=== PATIENT | male | born 1955 | race Caucasian/White ===

== ENCOUNTER → 2018-02-05 15:02 | Outpatient (CLI) | payer MEDICAID, SELFPAY | PROVIDERS: Visit Provider Podiatrist | DX: L98.499 Non-pressure chronic ulcer of skin of other sites with unspecified severity (principal); M14.679 Charcot's joint, unspecified ankle and foot | CPT/HCPCS: 73630 ==

== ENCOUNTER 2018-02-13 14:00 | Outpatient (RCR) | payer MEDICAID, SELFPAY ==
[2018-02-04 10:30] VITALS: BP 136/57; PULSE 60; RESP 18; TEMP 36; BMI 39.5
[2018-02-04 14:44] LABS: Absolute Lymphocyte Count 2.42 X10^3/ul (0.83-4.51); Absolute Neutrophil Count 4.1 X10^3/uL (2.0-7.7); Basophil# 0.03 X10^3/uL; Basophil% 0.4 % (0-1); Eosinophil# 0.31 X10^3/uL; Hematocrit 34.9 % (40-54); Hemoglobin 10.8 g/dl (13.0-16.5); Lymphocyte # 2.42 X10^3/ul (4.0); Lymphocyte % 31.3 % (19-41); Mean Corp Hgb Conc 30.9 g/gl (32-36); Mean Corpuscular Volume 80.8 fL (80-94); Monocyte# 0.84 X10^3/uL; Monocyte% 10.9 % (0-10); Neutrophil # 4.11 X10^3/uL (2.7-7.7); Platelet Count 334 K/mm3 (150-450); Red Blood Count 4.32 M/mm3 (4.6-6.2); White Blood Count 7.7 K/mm3 (4.4-11.0)
[2018-02-04 14:45] LABS: POSITIVE COUNT NO; POSITIVE DIFFERENTIAL NO; POSITIVE MORPHOLOGY NO
[2018-02-04 14:58] LABS: Vitamin D,25 Hydroxy 8.8 ng/mL (29.95-100.01)
[2018-02-04 15:01] LABS: ALB/GLOB Ratio 0.4 RATIO (0.9-2.4); AST(SGOT) 14 U/L (15-37); Alanine Aminotransfer ALT/SGPT 15 U/L (16-61); Albumin, Serum 2.3 g/dL (3.2-5.0); Alkaline Phosphatase 107 U/L (45-117); Anion Gap 9 (5-15); BUN 57 mg/dL (7-18); BUN/Creat Ratio 12.2 RATIO (10-20); Calcium,Total 8.9 mg/dL (8.5-10.1); Chloride 106 mmol/L (98-107); Creatinine, Serum 4.66 mg/dL (0.70-1.30); EST Glomerular Filtration Rate 14 mL/min (>60); Est Glom Filt Rate - Afr Amer 17 mL/min (>60); Estimated Creatinine Clearance 18.81 ml/min; Globulin 5.3 g/dL (2.2-4.2); Glucose 43 mg/dL (74-106); Potassium 5.7 mmol/L (3.5-5.1); Protein, Total 7.6 g/dL (6.4-8.2); Sodium Level 139 mmol/L (136-145)
--- NOTE | 2018-02-04 16:25 | PCM.WC.HP ---
(1) Ulcer of right foot with fat layer exposed Status: Chronic Current Visit: Yes Code(s): L97.512 - Non-pressure chronic ulcer of other part of right foot with fat layer exposed (2) Charcot foot due to diabetes mellitus Status: Chronic Current Visit: Yes Code(s): E11.610 - Type 2 diabetes mellitus with diabetic neuropathic arthropathy (3) Type 2 diabetes mellitus with diabetic polyneuropathy Status: Chronic Current Visit: Yes Code(s): E11.42 - Type 2 diabetes mellitus with diabetic polyneuropathy (4) Venous insufficiency Status: Chronic Current Visit: Yes Code(s): I87.2 - Venous insufficiency (chronic) (peripheral) (5) Leg edema Status: Chronic Current Visit: Yes Code(s): R60.0 - Localized edema (6) Malnutrition Status: Chronic Current Visit: Yes Code(s): E46 - Unspecified protein-calorie malnutrition (7) Delayed wound healing Status: Chronic Current Visit: Yes Code(s): T14.8XXD - Other injury of unspecified body region, subsequent encounter History of Present Illness Date of Service: 02/04/18 Chief Complaint: Right foot ulcer History of Wound: This 62-year-old male with diabetes and other comorbidities was seen in the wound healing center today for right foot ulcer that has an onset of April 2017. He is previously seen at the [facility] wound healing center with Dr. Aguillon and he was also previously seen by Dr. Li for surgical consultation in the past. He denies claudication. He has rest paresthesias consistent with neuropathy. He denies odor or redness. He denies fever, chill, nausea, vomiting, diarrhea, loss of appetite. She did have a previous infection and was treated with doxycycline and this has completely resolved at this time. He does admit he walks on this wound at home and is staying with a family member to reduce his walking. He has a knee roller in his car and elected not to use it today. He also has a [place] walker and is not using it today. He has been putting puracol and Dakin's on the wound daily. He was trying to get into a dietitian and his insurance does not cover it; he is amendable to see nutrition services here at [facility]. It is noted that his primary care physician is Dr. 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 He admits he has ongoing sugar elevation. Past Medical History Past Medical History: Chronic Problems Ulcer of right foot with fat layer exposed (Chronic) Charcot foot due to diabetes mellitus (Chronic) Type 2 diabetes mellitus with diabetic polyneuropathy (Chronic) Venous insufficiency (Chronic) Leg edema (Chronic) Malnutrition (Chronic) Delayed wound healing (Chronic) Past Medical History: Past medical history: Diabetes with neuropathy, hypertension, anemia, kidney disease stage I. Surgical history: Toe amputations, ankle debridement, shoulder surgery. Family history: Diabetes and cancer. Social history: He is a former smoker and denies current smoking, denies alcohol or drug use. Allergies: Lyrica amoxicillin baclofen and sulfa. Medications; reviewed Surgical History: - Lives: With Family Smoking Status: Never smoker Tobacco Use: Non-smoker Alcohol: None Drugs: None Review of Systems Constitutional: Denies: Chills, Fever, Night Sweats, Weakness HEENT: Denies: Sore Throat Cardiovascular: Reports: Edema - Legs. Denies: Chest Pain, Claudication Respiratory: Denies: Shortness of Breath Gastrointestinal: Denies: Nausea, Vomiting Musculoskeletal: Denies: Foot Pain, Joint Tenderness, Leg Pain Skin: Reports: Rash, Wounds Neurological: Reports: Numbness, Tingling Hematologic/ Lymphatic: Reports: Anemia - Physical Exam Vital Signs Temp Pulse Resp BP 96.8 F L 60 18 136/57 H 02/04/18 10:30 02/04/18 10:30 02/04/18 10:30 02/04/18 10:30 General: Alert, Oriented x3, Cooperative HEENT: Atraumatic Extremities: No cyanosis, Capillary Refill Less than 3 Seconds, No Calf Tenderness - Negative Laci and Yoder sign bilateral, Diminished Peripheral Pulses - Palpable dorsalis pedis pulse bilateral nonpalpable PT pulses bilateral, Edema - Moderate bilateral lower extremities, - - Rocker-bottom prominent right foot noted. There is no laxity, caloric, crepitation with passive manipulation of the right midfoot Skin: Ulcer/ Wound - No purulence, erythema, streaking, odor, infection, or exposed deep capsule joint or bone. The wound bed is 100% granular with peripheral hyperkeratotic tissue. The peripheral skin is atrophic and hairless. There is no maceration Wound Measurements and Assessment WC - Nurse 1 - General Ulcer Measurement Start: 02/04/18 10:07 Freq: Status: Active Protocol: Activity Type Activity Date Activity User E-Sign Co-Sign Detail Recorded Client Recorded Date Recorded By Document 02/04/18 10:30 TN [id number] 02/04/18 11:13 TN 02/04/18 10:30 Wound Center Nurse 1 [Ulcer Assessment] #1 R midfoot plantar -Combined with other wound No -Current Size (cm) - Length 2.3 -Current Size (cm) - Width 3.6 -Current Size (cm) - Depth 0.6 -Total Square Cm 8.28 -Date of Last Picture (Recall this 02/04/18 field) -Photo Taken Yes -Epithelialization None Present -Tunneling No -Undermining/Tunneling No -Circular Undermining No -Classification - Thickness Full Thickness without Exposed Support Structure -Exudate Amt Large (67-100%) -Exudate Type Serosanguineous -Wound Margin Distinct, Outline Attached -Granulation Amt Large (67-100%) -Granulation Quality [place] -Slough/Fibrin Yes -Necrotic Tissue Type Adherent Slough -Structure Exposed None/Limited to Skin Breakdown -Texture (Anna-wound Skin Appearance) Assessed Callus -Moisture (Anna-wound Skin Appearance Assessed ) Dry/Scaly -Color (Anna-wound Skin Appearance) No Abnormality Assessed -Temperature (Anna-wound Skin No Abnormality Appearance) (Pt Warm) -Tenderness on Palpation (Anna-wound No Skin Appearance) -Ulcer Cleansing Rinsed/ Irrigated with Saline -Foul Odor after Cleansing No -Anesthetic Used 4% Lidocaine Solution [Edema Assessment] -Lower Limb Edema Present Yes -Right Calf (cm) 48.2 -Right Ankle (cm) 32.5 -Left Calf (cm) 48.3 -Left Ankle (cm) 26 WC - Nurse 2 - General Ulcer CM Notes Start: 02/04/18 10:07 Freq: Status: Active Protocol: Activity Type Activity Date Activity User E-Sign Co-Sign Detail Recorded Client Recorded Date Recorded By Document 02/04/18 11:38 TM [id number] 02/04/18 11:49 TM 02/04/18 11:38 Wound Center Nurse 2 [Procedure/Treatment] #1 R midfoot plantar -Time 11:39 -Correct Patient Yes -Correct Side, Site, Position Yes -Correct Procedure Yes -Procedure Performed Yes -Type of Procedure Debridement -Clinical Debridement Subcutaneous -Post Debridement Size (cm) - Length 2.4 -Post Debridement Size (cm) - Width 3.7 -Post Debridement Size (cm) - Depth 0.6 -Total Square Cm 8.88 -Wound/Ulcer Outcome Not Healed -Ulcer Cleansing Rinsed/ Irrigated with Saline -Foul Odor after Cleansing No -Bioengineered Tissue No -Topical Lidocaine (%) 4 -Bleeding Controlled with Pressure -Treatment Response Procedure Tolerated Well [See Physician Procedure note for Specifics] Pain Scale: 0-10 Numeric [Pain] -Is Patient Pain Free? Yes Musculoskeletal: No Tenderness to Palpation of Joints or Extremities, Muscle Wasting, - - 5 out of 5 ankle muscle strength in all directions right. Active range of motion noted to all toes bilateral. Compartments of bilateral lower extremities remain soft. Pes planus foot structure noted. Decreased ankle joint dorsiflexion noted right lower extremity with knee extended. Cane use noted Neurological: - - Lack of epicritic sensation to light touch and Mayo Cesilia monofilament bilateral Psych/Mental Status: Normal Affect, Appropriate Debridement Note Post-Debridement Measurements/Treatment WC - Nurse 2 - General Ulcer CM Notes Start: 02/04/18 10:07 Freq: Status: Active Protocol: Activity Type Activity Date Activity User E-Sign Co-Sign Detail Recorded Client Recorded Date Recorded By Document 02/04/18 11:38 [id number] 02/04/18 11:49 02/04/18 11:38 Wound Center Nurse 2 #1 R midfoot plantar -Time 11:39 -Correct Patient Yes -Correct Side, Site, Position Yes -Correct Procedure Yes -Procedure Performed Yes -Type of Procedure Debridement -Clinical Debridement Subcutaneous -Post Debridement Size (cm) - Length 2.4 -Post Debridement Size (cm) - Width 3.7 -Post Debridement Size (cm) - Depth 0.6 -Total Square Cm 8.88 -Wound/Ulcer Outcome Not Healed -Ulcer Cleansing Rinsed/ Irrigated with Saline -Foul Odor after Cleansing No -Bioengineered Tissue No -Topical Lidocaine (%) 4 -Bleeding Controlled with Pressure -Treatment Response Procedure Tolerated Well Pain Scale: 0-10 Numeric Is Patient Pain Free? Yes Wound debrided: plantar midfoot Laterality: Right - g Wound Grade/Stage: grade 1 Type of Debridement: Excisional debridement Anesthesia Used: 4% Lidocaine Solution Depth: in the subcutaneous layer Percentage of wound debrided: 100 Instrument Used: #15 blade Tissue Removed: fibrous, devitalized subcutaneous, biofilm, slough, peripheral callous Severity: Fat Layer Exposed Amount of bleeding with debridement: Mild Bleeding Controlled with: Pressure Patient tolerated procedure well Assessment/Plan Active Problems Ulcer of right foot with fat layer exposed (Chronic) Charcot foot due to diabetes mellitus (Chronic) Type 2 diabetes mellitus with diabetic polyneuropathy (Chronic) Venous insufficiency (Chronic) Leg edema (Chronic) Malnutrition (Chronic) Delayed wound healing (Chronic) Assessment: Plantar james grade 1 foot ulcer, no infection. Charcot foot, stable and nonacute. Diabetes with neuropathy. Delayed healing. Malnutrition suspected. Equinus. Compliance compromise Plan: I reviewed and discussed his case today. Ulcer debridement was performed subcutaneously as noted in the clinical panel. To change dressing daily with collagen dressing that he has at home. I also recommend application of advanced wound care product to the chronicity of this wound has been open since last April. The benefits, indications, planned procedure, and anticipated healing and management steps were discussed. She understands this is derived from amniotic cord cells. Prior authorization will be obtained prior to application. To offload wound by returning to the knee roller. We discussed the recommendation of a total contact cast and this will be ordered and we plan to apply this next week. He has tried this in the past and reports he had some leg swelling and swelling with this. He is amenable to try this again. He was reassured no signs of infection are noted and he will continue to monitor for this. His last cultures from when his wound was infected approximately 1 month ago demonstrated Enterobacter cloaca. his labs are reviewed from last July 2017 including CBC and CMP. It is noted his BUN is 46 and his hemoglobin A1c was 11.3. I recommend we update his foot x-rays in order was provided I also recommend updating these labs in order was provided. Also recommend nutritional supplementation optimize healing. I provided prescription for Cole and he was advised on proper use. A referral to nutrition services at [facility] was also recommended and a referral was provided today. I recommend a noninvasive vascular study and these results will be obtained; he reports he had this done in [place]. I also recommend venous study to see if he has insufficiency. Additional record request will be pursued. To elevate limbs at rest and to avoid idle standing or sitting. To return the wound healing center 1 week or call sooner if he has any questions or concerns. I answered all his questions today.
[2018-02-11 11:27] VITALS: BP 135/66; PULSE 73; RESP 16; TEMP 35.5; BMI 39.5
--- NOTE | 2018-02-11 13:09 | PCM.WC.PN ---
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 use: unspecified fpc insulin use status Qualified Code(s): E11.42 - Type 2 diabetes mellitus with diabetic polyneuropathy Code(s): E11.42 - Type 2 diabetes mellitus with diabetic polyneuropathy (4) Venous insufficiency Status: Chronic Code(s): I87.2 - Venous insufficiency (chronic) (peripheral) (5) Leg edema Status: Chronic Code(s): R60.0 - Localized edema (6) Malnutrition Status: Chronic Code(s): E46 - Unspecified protein-calorie malnutrition (7) Delayed wound healing Status: Chronic Code(s): T14.8XXD - Other injury of unspecified body region, subsequent encounter (8) Other specified peripheral vascular diseases Status: Chronic Code(s): I73.89 - Other specified peripheral vascular diseases Type of Wound Date of Service: 02/14/18 Chief Complaint: Right foot ulcer History of Wound: This 62-year-old male with diabetes and other comorbidities was seen in the wound healing center today for right foot ulcer that has an onset of April 2017. He denies odor or redness. He denies fever, chill, nausea, vomiting, diarrhea, loss of appetite. He is ready for total contact cast application today. Progress of Wound: Improving - Physical Exam Vital Signs Temp Pulse Resp BP 96 F L 73 16 135/66 H 02/11/18 11:27 02/11/18 11:27 02/11/18 11:27 02/11/18 11:27 General: Alert, Oriented x3, Cooperative Extremities: No cyanosis, Capillary Refill Less than 3 Seconds, No Calf Tenderness - Negative Laci and Yoder sign, Diminished Peripheral Pulses, Edema, - - Significant pes planus with some rocker-bottom deformity noted. Decreased ankle joint dorsiflexion consistent with equinus is also noted Skin: Ulcer/ Wound - No purulence, no erythema, streaking, no odor, no acute signs of infection. There is no eschar deep tissue exposure deep probing noted. The peripheral skin is hairless and atrophic. The wound bed is mainly granular base and there is peripheral callus and noted Wound Measurements and Assessment - Nurse 1 - General Ulcer Measurement Start: 02/04/18 10:07 Freq: Status: Active Protocol: Activity Type Activity Date Activity User E-Sign Co-Sign Detail Recorded Client Recorded Date Recorded By Document 02/11/18 11:27 [facility] [id number] 02/11/18 11:37 [facility] 02/11/18 11:27 Wound Center Nurse 1 [Ulcer Assessment] #1 R midfoot plantar -Combined with other wound No -Current Size (cm) - Length 2.2 -Current Size (cm) - Width 2.8 -Current Size (cm) - Depth 0.4 -Total Square Cm 6.16 -Photo Taken No -Epithelialization None Present -Tunneling No -Undermining/Tunneling No -Circular Undermining No -Exudate Amt Medium (34-66%) -Exudate Type Serosanguineous -Wound Margin Distinct, Outline Attached -Granulation Amt Large (67-100%) -Granulation Quality [place] -Slough/Fibrin No -Necrosis Amt None Present (0 %) -Texture (Anna-wound Skin Appearance) Callus Scarring -Moisture (Anna-wound Skin Appearance Dry/Scaly ) -Color (Anna-wound Skin Appearance) Assessed -Temperature (Anna-wound Skin No Abnormality Appearance) (Pt Warm) -Tenderness on Palpation (Anna-wound No Skin Appearance) -Ulcer Cleansing Rinsed/ Irrigated with Saline -Foul Odor after Cleansing No -Anesthetic Used 5% Lidocaine Gel - Nurse 2 - General Ulcer CM Notes Start: 02/04/18 10:07 Freq: Status: Active Protocol: Activity Type Activity Date Activity User E-Sign Co-Sign Detail Recorded Client Recorded Date Recorded By Document 02/11/18 11:51 [id number] 02/11/18 12:11 02/11/18 11:51 Wound Center Nurse 2 [Procedure/Treatment] -Time 11:51 -Correct Patient Yes -Correct Side, Site, Position Yes -Correct Procedure Yes -Procedure Performed Yes -Type of Procedure Debridement -Clinical Debridement Subcutaneous -Post Debridement Size (cm) - Length 2.4 -Post Debridement Size (cm) - Width 2.9 -Post Debridement Size (cm) - Depth 0.4 -Total Square Cm 6.96 -Wound/Ulcer Outcome Not Healed -Ulcer Cleansing Rinsed/ Irrigated with Saline -Foul Odor after Cleansing No -Bioengineered Tissue Yes -Type of bioengineered Tissue EPICORD -Expiration Date 08/14/22 -Product Lot Number [id number] -Percent Used 100 -Saline Lot Number [id number] -Topical Lidocaine (%) 5 -Bleeding Controlled with Pressure -Treatment Response Procedure Tolerated Well [See Physician Procedure note for Specifics] Pain Scale: 0-10 Numeric [Pain] -Is Patient Pain Free? Yes Musculoskeletal: No Tenderness to Palpation of Joints or Extremities, Muscle Wasting Neurological: - - Lack of epicritic sensation light touch consistent with neuropathy Psych/Mental Status: Normal Affect, Appropriate Debridement Note Post-Debridement Measurements/Treatment WC - Nurse 2 - General Ulcer CM Notes Start: 02/04/18 10:07 Freq: Status: Active Protocol: Activity Type Activity Date Activity User E-Sign Co-Sign Detail Recorded Client Recorded Date Recorded By Document 02/04/18 11:38 [id number] 02/04/18 11:49 TM Document 02/11/18 11:51 [id number] 02/11/18 12:11 TM 02/04/18 02/11/18 11:38 11:51 Wound Center Nurse 2 #1 R midfoot plantar -Time 11:39 11:51 -Correct Patient Yes Yes -Correct Side, Site, Position Yes Yes -Correct Procedure Yes Yes -Procedure Performed Yes Yes -Type of Procedure Debridement Debridement -Clinical Debridement Subcutaneous Subcutaneous -Post Debridement Size (cm) - Length 2.4 2.4 -Post Debridement Size (cm) - Width 3.7 2.9 -Post Debridement Size (cm) - Depth 0.6 0.4 -Total Square Cm 8.88 6.96 -Wound/Ulcer Outcome Not Healed Not Healed -Ulcer Cleansing Rinsed/ Rinsed/ Irrigated with Irrigated with Saline Saline -Foul Odor after Cleansing No No -Bioengineered Tissue No Yes -Type of bioengineered Tissue EPICORD -Expiration Date 08/14/22 -Product Lot Number [id number] -Percent Used 100 -Saline Lot Number [id number] -Topical Lidocaine (%) 4 5 -Bleeding Controlled with Pressure Pressure -Treatment Response Procedure Procedure Tolerated Well Tolerated Well Pain Scale: 0-10 Numeric Is Patient Pain Free? Yes Yes Wound debrided: plantar foot Laterality: Right Wound Grade/Stage: grade 1 Type of Debridement: Excisional debridement Anesthesia Used: 4% Lidocaine Solution Depth: in the subcutaneous layer Percentage of wound debrided: 100 Instrument Used: #15 blade Tissue Removed: fibrous, devitalized subcutaneous, biofilm, slough Severity: Fat Layer Exposed Amount of bleeding with debridement: Mild Bleeding Controlled with: Pressure Patient tolerated procedure well Assessment/Plan Assessment: Plantar james grade 1 foot ulcer, no infection. Charcot foot, stable and nonacute. Diabetes with neuropathy. Delayed healing. Malnutrition suspected. Equinus. Compliance compromise Plan: I reviewed and discussed his case today. Ulcer debridement was performed subcutaneously as noted in the clinical panel. Advanced wound care product derived from amniotic cord cells and umbilical cord cells, epi cord, was applied today according to standard protocol. This was secured in place with Steri-Strips and wound veil. Advised this needs to be kept intact and in place for 1 week and serial applications are anticipated. He understands the benefits, risks, complications, and anticipated healing time and management with the use of this advanced product. A secondary wound dressing was applied and a well-padded total contact cast was applied according to standard protocol rectus position. He will return this Friday for wound and cast check. He understands his swelling and drainage may fluctuate with his initial application of this cast and he is amenable to return for evaluation with Dr. Leung which is appreciated. He tolerated the cast application well. To offload wound by returning to the knee roller. He was reassured no signs of infection are noted and he will continue to monitor for this. His last cultures from when his wound was infected approximately 1 month ago demonstrated Enterobacter cloaca. His updated labs are reviewed with white blood cell count 7.7, creatinine of 4.66, vitamin D of 8.8, alkaline phosphatase of 107, protein, 7.6, albumin 2.3, and vitamin D of 8.8. It is also noted his previous hemoglobin A1c was 11.3. I recommend we update his foot x-rays which did not demonstrate any acute fractures, dislocation, soft tissue emphysema, foreign body. 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 The x-rays are nonweightbearing and there is no acute Charcot fragmentation appreciated or vessel calcification. I also recommend nutritional supplementation optimize healing. I provided prescription for Cole and he was advised on proper use. A referral to nutrition services at [facility] was also recommended and a referral was provided previously. I recommend a noninvasive vascular study and these results will be obtained; he reports he had this done in [place]. I also recommend venous study to see if he has insufficiency. Additional record request will be pursued. To elevate limbs at rest and to avoid idle standing or sitting. I will also recommend vitamin D supplementation due to his low values. He was reassured no signs of acute infection or acute Charcot are noted today. He asked about surgical Charcot reconstruction options and we reviewed the multiple conservative and surgical options. I would like to proceed with a comprehensive advanced wound care plan and progression into a [place] walker. If this fails, posterior leg muscle lengthening, planing versus osteotomy with internal and external fixation to restore the arch, and other plastic surgery techniques will be considered. I answered his many questions on this matter today. To return the wound healing center 1 week or call sooner if he has any questions or concerns. I answered all his questions today.
[2018-02-13 14:27] VITALS: BP 138/71; PULSE 70; RESP 18; TEMP 35.9; BMI 39.5
--- NOTE | 2018-02-13 19:12 | PCM.WC.PN ---
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 insulin use: unspecified lecturer in computer science insulin use status Qualified Code(s): E11.42 - Type 2 diabetes mellitus with diabetic polyneuropathy Code(s): E11.42 - Type 2 diabetes mellitus with diabetic polyneuropathy (4) Venous insufficiency Status: Chronic Current Visit: Yes Code(s): I87.2 - Venous insufficiency (chronic) (peripheral) (5) Leg edema Status: Chronic Current Visit: Yes Code(s): R60.0 - Localized edema (6) Malnutrition Status: Chronic Current Visit: Yes Code(s): E46 - Unspecified protein-calorie malnutrition (7) Delayed wound healing Status: Chronic Current Visit: Yes Code(s): T14.8XXD - Other injury of unspecified body region, subsequent encounter (8) Other specified peripheral vascular diseases Status: Chronic Current Visit: Yes Code(s): I73.89 - Other specified peripheral vascular diseases Type of Wound Date of Service: 02/13/18 Chief Complaint: Right foot ulcer History of Wound: This 62-year-old male with diabetes and other comorbidities was seen in the wound healing center for right foot ulcer that has an onset of April 2017. He is previously seen at the [facility] wound healing center with Dr. Aguillon and he was also previously seen by Dr. Li for surgical consultation in the past. He denies claudication. He has rest paresthesias consistent with neuropathy. He denies odor or redness. He denies fever, chill, nausea, vomiting, diarrhea, loss of appetite. He did have a previous infection and was treated with doxycycline and this has completely resolved at this time. He does admit he walks on this wound at home and is staying with a family member to reduce his walking. He has a knee roller in his car and elected not to use it today. He also has a [place] walker and is not using it today. He has been putting puracol and Dakin's on the wound daily. He was trying to get into a dietitian and his insurance does not cover it; he is amendable to see nutrition services here at [facility]. It is noted that his primary care physician is Dr. 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 He admits he has ongoing sugar elevation. Progress of Wound: Ramos is here today for application of a TCC for treatment of a diabetic foot ulcer of his right foot. He tolerated application on Friday. Nursing did note significant maceration surrounding the wound and drainage through the dressings that were placed under the TCC. - Physical Exam Vital Signs Temp Pulse Resp BP 96.6 F L 70 18 138/71 H 02/13/18 14:27 02/13/18 14:27 02/13/18 14:27 02/13/18 14:27 General: Alert, Oriented x3, Cooperative, No apparent distress HEENT: Atraumatic, Normocephalic Oral: Moist Mucosa Extremities: Edema Skin: Ulcer/ Wound Wound Measurements and Assessment WC - Nurse 1 - General Ulcer Measurement Start: 02/04/18 10:07 Freq: Status: Active Protocol: Activity Type Activity Date Activity User E-Sign Co-Sign Detail Recorded Client Recorded Date Recorded By Document 02/11/18 11:27 [facility] [id number] 02/11/18 11:37 [facility] Document 02/13/18 14:27 [id number] 02/13/18 14:31 02/11/18 02/13/18 11:27 14:27 Wound Center Nurse 1 [Ulcer Assessment] #1 R midfoot plantar -Combined with other wound No No -Current Size (cm) - Length 2.2 2.4 -Current Size (cm) - Width 2.8 2.9 -Current Size (cm) - Depth 0.4 0.4 -Total Square Cm 6.16 6.96 -Photo Taken No No -Epithelialization None Present None Present -Tunneling No No -Undermining/Tunneling No No -Circular Undermining No No -Exudate Amt Medium (34-66%) Large (67-100%) -Exudate Type Serosanguineous Serosanguineous -Wound Margin Distinct, Outline Attached -Granulation Amt Large (67-100%) -Granulation Quality Pale Red -Slough/Fibrin No -Necrosis Amt None Present (0 %) -Texture (Madeline-wound Skin Appearance) Callus Assessed Scarring Localized Edema -Moisture (Madeline-wound Skin Appearance Dry/Scaly Assessed ) Maceration -Color (Madeline-wound Skin Appearance) Assessed No Abnormality Assessed -Temperature (Madeline-wound Skin No Abnormality No Abnormality Appearance) (Pt Warm) (Pt Warm) -Tenderness on Palpation (Madeline-wound No Skin Appearance) -Ulcer Cleansing Rinsed/ Not Cleansed Irrigated with Saline -Foul Odor after Cleansing No No -Anesthetic Used 5% Lidocaine Gel [Edema Assessment] -Lower Limb Edema Present Yes -Right Calf (cm) 44.0 -Right Ankle (cm) 25.0 WC - Nurse 2 - General Ulcer CM Notes Start: 02/04/18 10:07 Freq: Status: Active Protocol: Activity Type Activity Date Activity User E-Sign Co-Sign Detail Recorded Client Recorded Date Recorded By Document 02/11/18 11:51 TM [id number] 02/11/18 12:11 TM Document 02/13/18 14:53 MW [id number] 02/13/18 14:58 MW 02/11/18 02/13/18 11:51 14:53 Wound Center Nurse 2 [Procedure/Treatment] #1 R midfoot plantar -Time 11:51 14:54 -Correct Patient Yes Yes -Correct Side, Site, Position Yes Yes -Correct Procedure Yes No -Procedure Performed Yes No -Type of Procedure Debridement -Clinical Debridement Subcutaneous -Post Debridement Size (cm) - Length 2.4 2.4 -Post Debridement Size (cm) - Width 2.9 2.9 -Post Debridement Size (cm) - Depth 0.4 0.4 -Total Square Cm 6.96 6.96 -Wound/Ulcer Outcome Not Healed Not Healed -Ulcer Cleansing Rinsed/ madeline wound Irrigated with cleansed with Saline soap and water -Foul Odor after Cleansing No No -Bioengineered Tissue Yes -Type of bioengineered Tissue EPICORD EPICORD -Expiration Date 08/14/22 -Product Lot Number [id number] -Percent Used 100 -Saline Lot Number [id number] -Topical Lidocaine (%) 5 -Bleeding Controlled with Pressure NA -Other EPICORD, VEIL, STERI STRIPS INTACT -Treatment Response Procedure Procedure Tolerated Well Tolerated Well [See Physician Procedure note for Specifics] Pain Scale: 0-10 Numeric [Pain] -Is Patient Pain Free? Yes Yes Psych/Mental Status: Normal Affect, Appropriate Debridement Note Post-Debridement Measurements/Treatment WC - Nurse 2 - General Ulcer CM Notes Start: 02/04/18 10:07 Freq: Status: Active Protocol: Activity Type Activity Date Activity User E-Sign Co-Sign Detail Recorded Client Recorded Date Recorded By Document 02/04/18 11:38 TM [id number] 02/04/18 11:49 TM Document 02/11/18 11:51 TM [id number] 02/11/18 12:11 TM Document 02/13/18 14:53 MW [id number] 02/13/18 14:58 MW 02/04/18 02/11/18 02/13/18 11:38 11:51 14:53 Wound Center Nurse 2 #1 R midfoot plantar -Time 11:39 11:51 14:54 -Correct Patient Yes Yes Yes -Correct Side, Site, Position Yes Yes Yes -Correct Procedure Yes Yes No -Procedure Performed Yes Yes No -Type of Procedure Debridement Debridement -Clinical Debridement Subcutaneous Subcutaneous -Post Debridement Size (cm) - Length 2.4 2.4 2.4 -Post Debridement Size (cm) - Width 3.7 2.9 2.9 -Post Debridement Size (cm) - Depth 0.6 0.4 0.4 -Total Square Cm 8.88 6.96 6.96 -Wound/Ulcer Outcome Not Healed Not Healed Not Healed -Ulcer Cleansing Rinsed/ Rinsed/ madeline wound Irrigated with Irrigated with cleansed with Saline Saline soap and water -Foul Odor after Cleansing No No No -Bioengineered Tissue No Yes -Type of bioengineered Tissue EPICORD EPICORD -Expiration Date 08/14/22 -Product Lot Number [id number] -Percent Used 100 -Saline Lot Number [id number] -Topical Lidocaine (%) 4 5 -Bleeding Controlled with Pressure Pressure NA -Other EPICORD, VEIL, STERI STRIPS INTACT -Treatment Response Procedure Procedure Procedure Tolerated Well Tolerated Well Tolerated Well Pain Scale: 0-10 Numeric Is Patient Pain Free? Yes Yes Yes Wound debrided: right midfoot plantar Laterality: Right No debridement was completed today Assessment/Plan Active Problems Ulcer of right foot with fat layer exposed (Chronic) Charcot foot due to diabetes mellitus (Chronic) Type 2 diabetes mellitus with diabetic polyneuropathy (Chronic) Venous insufficiency (Chronic) Leg edema (Chronic) Malnutrition (Chronic) Delayed wound healing (Chronic) Other specified peripheral vascular diseases (Chronic) Assessment: Plantar james grade 1 foot ulcer, no infection. Charcot foot, stable and nonacute. Diabetes with neuropathy. Delayed healing. Malnutrition suspected. Equinus. Compliance compromise Plan: I reviewed and discussed his case today. Due to the maceration and drainage, will dress the wound with Aquacel, gauze and foam padding priot to TCC application. He tolerated the initial application without any complication. TCC applied per backup operator guidelines by myself. Pt. tolerated procedure well. His labs are reviewed from last July 2017 including CBC and CMP. It is noted his BUN is 46 and his hemoglobin A1c was 11.3. Also recommend nutritional supplementation optimize healing. I provided prescription for Cole and he was advised on proper use. A referral to nutrition services at [facility] was also recommended and a referral was provided. I recommend a noninvasive vascular study and these results will be obtained; he reports he had this done in [place]. I also recommend venous study to see if he has insufficiency. Additional record request will be pursued. To elevate limbs at rest and to avoid idle standing or sitting. To return the wound healing center 1 week or call sooner if he has any questions or concerns. I answered all his questions today.
== END 2018-02-13 23:59 ==
LOC: WC 14:00
PROVIDERS: Visit Provider Podiatrist
DX: E11.621 Type 2 diabetes mellitus with foot ulcer (principal); E11.610 Type 2 diabetes mellitus with diabetic neuropathic arthropathy; L97.512 Non-pressure chronic ulcer of other part of right foot with fat layer exposed; R60.0 Localized edema; E11.42 Type 2 diabetes mellitus with diabetic polyneuropathy; E11.51 Type 2 diabetes mellitus with diabetic peripheral angiopathy without gangrene; E11.22 Type 2 diabetes mellitus with diabetic chronic kidney disease; I12.9 Hypertensive chronic kidney disease with stage 1 through stage 4 chronic kidney disease, or unspecified chronic kidney disease; N18.1 Chronic kidney disease, stage 1; Z87.891 Personal history of nicotine dependence
CPT/HCPCS: 11042; 15275; 29445; 80053; 82306; 85025; 99213; Q4131; G0463

== ENCOUNTER 2018-02-19 13:23 | Observation (INO) | payer MEDICAID, SELFPAY ==
[2018-02-19] VITALS (12 sets, daily range): BP systolic 158–215; BP diastolic 60–90; PULSE 56–72; RESP 13–20; TEMP 36.6–36.8; O2SAT 95–99; BMI 37.2; BMI 37.8
--- NOTE | 2018-02-19 13:43 | EKG12_ITS ---
Test Reason : HIGH K Blood Pressure : / mmHG Vent. Rate : 058 BPM Atrial Rate : 058 BPM P-R Int : 174 ms QRS Dur : 094 ms QT Int : 408 ms P-R-T Axes : 051 034 036 degrees QTc Int : 400 ms Sinus bradycardia Otherwise normal ECG Confirmed by ALON GAYLE ([id number]), slot editor MATT MCDUFFIE ([id number]) on 02/24/2018 2:37:11 PM Referred By: Donis Jung Confirmed By:ALON GAYLE
[2018-02-19 14:18] LABS: Absolute Lymphocyte Count 1.17 X10^3/ul (0.83-4.51); Absolute Neutrophil Count 3.9 X10^3/uL (2.0-7.7); Basophil# 0.03 X10^3/uL; Basophil% 0.5 % (0-1); Eosinophil# 0.31 X10^3/uL; Eosinophils% 5.4 % (0-5); Hematocrit 31.3 % (40-54); Hemoglobin 9.8 g/dl (13.0-16.5); Lymphocyte # 1.17 X10^3/ul (4.0); Lymphocyte % 20.5 % (19-41); Mean Corp Hgb Conc 31.3 g/gl (32-36); Mean Corpuscular Volume 79.8 fL (80-94); Mean Platelet Vol. 10.9 fl (6.2-12.0); Monocyte# 0.32 X10^3/uL; Monocyte% 5.6 % (0-10); Neutrophil # 3.88 X10^3/uL (2.7-7.7); Neutrophil % 67.8 % (47-70); POSITIVE COUNT NO; POSITIVE DIFFERENTIAL NO; POSITIVE MORPHOLOGY NO; Platelet Count 222 K/mm3 (150-450); RBC Distribution Width CV 16.2 % (11.6-14.6); RBC Distribution Width SD 47.1 fl (35.1-43.9); Red Blood Count 3.92 M/mm3 (4.6-6.2); White Blood Count 5.7 K/mm3 (4.4-11.0)
[2018-02-19 14:28] LABS: Anion Gap 8 (5-15); BUN 84 mg/dL (7-18); BUN/Creat Ratio 17.1 RATIO (10-20); Calcium,Total 8.6 mg/dL (8.5-10.1); Chloride 110 mmol/L (98-107); Creatinine, Serum 4.92 mg/dL (0.70-1.30); EST Glomerular Filtration Rate 13 mL/min (>60); Est Glom Filt Rate - Afr Amer 16 mL/min (>60); Estimated Creatinine Clearance 18.33 ml/min; Glucose 278 mg/dL (74-106); Potassium 6.5 mmol/L (3.5-5.1); Sodium Level 139 mmol/L (136-145)
[2018-02-19] MEDS: Albuterol 2.5 MG/3 ML VIAL.NEB. INHALATION (14:40)
--- NOTE | 2018-02-19 14:51 | ED.DCSUM_ITS ---
- ER Visit Summary Date of Service: 02/19/18 Chief Complaint: Abnormal labs History of Present Illness: The patient is a 62 M presents to the emergency department with elevated potassium. The patient has a history of chronic kidney disease. He follows with Dr. Siegel the patient had outpatient lab work done 2 days ago. He was told that his potassium was 7.1 and he needs to come to the emergency department. He is not on dialysis. He denies any recent change in medications. The patient does follow with a breast worker through the [facility] system. He has had no other symptoms. He is currently staying with his daughter and Venancio because he has chronic foot wounds and has difficulty caring for himself because he is not supposed to be bearing weight on his feet. Physical Examination: Vital signs reviewed General: Well-nourished, well-developed Head: Normocephalic, atraumatic Eyes: Pupils equal and reactive, extraocular muscles intact Neck, supple, no lymphadenopathy Heart: Regular rate and rhythm Respiratory: No distress, clear bilaterally Abdomen: Soft, nontender, nondistended, no peritoneal signs Back: Nontender Extremities: Nontender, no edema, no cords Skin: Normal color no rash Neuro: Alert and oriented, no focal or lateralizing deficits Test Results: [] Emergency Department Course and Treatment: EKG was done on patient arrival. He does appear to have peak T waves anteriorly which are changed from prior. The patient was started on hyperkalemia protocol. His labs do show chronic kidney disease with a potassium of 6.5. Given the patient's underlying renal dysfunction, I do feel that the patient is going require admission. The patient was discussed with the hospitalist who agrees with plan of care. Treatment Plan: [] Disposition: Admission Impression: Hyperkalemia This note was generated with Flared3[employer] dictation software. It may contain incorrect words, spelling, and punctuation that were not noted in review of the chart prior to signing ED Disposition - Plan for ED Patient: Chief Complaint: Abn Labs
[2018-02-19] MEDS: Sodium Polystyrene Sulfonate 15 GM/60 ML UDC 30 GM PO (15:02)
[2018-02-19 17:30] LABS: Bedside Glucose 185 mg/dL (70-110)
--- NOTE | 2018-02-19 18:35 | PCM.HP.STD ---
Problem List (1) Charcot foot due to diabetes mellitus Status: Chronic (2) Type 2 diabetes mellitus with diabetic polyneuropathy Status: Chronic Qualifiers: (3) Leg edema Status: Chronic (4) Vitamin D deficiency Status: Chronic (5) Hyperkalemia Status: Acute (6) CKD (chronic kidney disease) stage 5, GFR less than 15 ml/min Status: Chronic (7) Anemia Status: Chronic History of Present Illness Date of Admission: 02/19/18 Chief Complaint: Hyperkalemia The patient is a 62 year old M with a h/o IDDM, HTN, Chracot foot, DM neuropathy and chronic pain presenting from his home after being called by his wood engraver about an elevated potassium level. He denies any symptoms of chest pain, SOB or lightheadedness. His wounds and charcot foot are currently being managed at the wound center. He states that he also has psoriasis and is only on a topical triamcinolone cream. In the ER his potassium was 6.2 and he was noted to have peaked T waves. He was given insulin, glucose, albuterol, CaGluconate, and kayexalate. Past Medical History Past Medical History (Chronic Problems): Chronic Problems Ulcer of right foot with fat layer exposed (Chronic) Charcot foot due to diabetes mellitus (Chronic) Type 2 diabetes mellitus with diabetic polyneuropathy (Chronic) Leg edema (Chronic) Malnutrition (Chronic) Delayed wound healing (Chronic) Vitamin D deficiency (Chronic) CKD (chronic kidney disease) stage 5, GFR less than 15 ml/min (Chronic) Anemia (Chronic) Allergies amoxicillin Allergy (Verified 02/19/18 13:27) Swelling baclofen Allergy (Verified 02/19/18 13:27) Swelling pregabalin [From Lyrica] Allergy (Verified 02/19/18 13:27) Swelling Sulfa (Sulfonamide Antibiotics) Allergy (Verified 02/19/18 13:27) Swelling Home Medications: Ambulatory Orders Medication Instructions Recorded Amlodipine [Norvasc] 10 mg PO DAILY 02/19/18 Aspirin E.C. [Ecotrin] 81 mg PO DAILY 02/19/18 Atorvastatin Calcium 80 mg PO DAILY 02/19/18 Carvedilol [Carvedilol] 6.25 mg PO BID 02/19/18 Cyanocobalamin (Vitamin B-12) 1,000 mcg PO DAILY 02/19/18 [B-12] Doxazosin Mesylate 2 mg PO DAILY 02/19/18 Ferrous Sulfate [Iron] 325 mg PO DAILY 02/19/18 Furosemide [Lasix] 20 mg PO DAILY 02/19/18 Insulin Glargine,Hum.rec.anlog 75 unit SQ BID 02/19/18 [Basaglar Kwikpen U-100] Insulin Lispro [Humalog KwikPen] 50 units SQ TIDCM 02/19/18 Lisinopril [Lisinopril] 20 mg PO DAILY 02/19/18 Oxycodone CR [Oxycontin] 15 mg PO Q6H 02/19/18 Surgical History: cataract, - - Foot surgery Smoking Status: Former smoker Tobacco Use: Cigarettes, Chew Alcohol: None Drugs: None - *Family History Maternal History Items: Diabetes Paternal History Items: Diabetes, Heart Disease Review of Systems Constitutional: Denies: Chills, Fever, Weight Change Eyes: Denies: Blurred vision, Vision Change HEENT: Denies: Head Aches, Sinus Congestion, Sinus Drainage Cardiovascular: Denies: Chest Pain, Chest Tightness, Palpitations Respiratory: Denies: Cough, Shortness of breath at rest, Sputum production Gastrointestinal: Denies: Abdominal Pain, Nausea, Vomiting Genitourinary: Denies: Dysuria Musculoskeletal: Reports: - - Foot pain. Denies: Joint Pain, Joint Tenderness Skin: Denies: Rash, Wounds Neurological: Reports: Numbness, Tingling. Denies: Focal weakness Psychiatric: Denies: Anxiety, Depression Hematologic/ Lymphatic: Denies: Easy Bruising, Easy Bleeding VTE Information - Inpt Only VTE Present on Admission: No Patient Problems: Active and Suspected Problems Venous insufficiency (Suspected) Other specified peripheral vascular diseases (Suspected) Hyperkalemia (Acute) - Physical Exam General: Alert, Oriented x3, Cooperative, No apparent distress HEENT: Atraumatic, EOMI, Normocephalic Oral: Moist Mucosa Neck: Supple, No JVD Lungs: Clear to auscultation, Normal air movement, No rhonchi, No wheeze, No rales Cardiovascular: Regular rate, Regular Rhythm, Normal S1, Normal S2, No murmurs Abdomen: Soft, Non Tender, Non-Distended, No Hepato-splenomegaly Extremities: - - right foot is in a boot with bandages for his charcot foot Skin: Rash Present - chronic in nature, blanching states from his psoriasis Neurological: Neuro grossly intact, Sensory exam intact to light touch and pain Psych/Mental Status: Normal Affect, Appropriate Vital Signs Temp Pulse Resp BP Pulse Ox 98.2 F 56 L 20 H 174/72 H 99 02/19/18 16:40 02/19/18 17:25 02/19/18 16:40 02/19/18 16:42 02/19/18 16:40 Oxygen Delivery Method Room Air Weight: 294 lb 5.074 oz Body Mass Index (BMI) 37.8 POC Glucose 02/19/18 17:09 POC Glucose 185 H Assessment/Plan All Active Problems Hyperkalemia (Acute) 1. Hyperkalemia - Combination of poor renal function CKD V and his lisinopril - He was given multiple therapies in the ER will recheck BMP tonight at 1900 and re-treat if needed - Tele given his peaked T waves 2. CKD5/HTN/HLD/IDDM with polyneuropathy/Anemia of chronic disease - He is on 75 U BID of lantus and 50 U TIDAC of novolog - Will continue and add SSI - Will have the dietitian provide educations - DM diet - He sees an outside wood engraver, he continues to make urine however with his anemia will likely need dialysis, c/w ferrous sulfate - Possible candidate for epo as an outpatient - c/w lasix, norvasc and lisinopril and will monitor. Blood pressure was elevated on admission and I would favor decreasing his lasix given his renal function and possibly starting imdur instead. His HR is too borderline to consider increasing his BB - C/w statin DVT: Heparin Diet: DM/Cardiac Code Visit Inpatient E&M: 81604 Init Hosp L3
[2018-02-19] MEDS: oxyCODONE 5 MG Tablet 15 MG PO (19:33)
[2018-02-19 20:33] LABS: Anion Gap 9 (5-15); BUN 78 mg/dL (7-18); BUN/Creat Ratio 16.4 RATIO (10-20); Calcium,Total 8.7 mg/dL (8.5-10.1); Chloride 111 mmol/L (98-107); Creatinine, Serum 4.75 mg/dL (0.70-1.30); EST Glomerular Filtration Rate 13 mL/min (>60); Est Glom Filt Rate - Afr Amer 16 mL/min (>60); Estimated Creatinine Clearance 18.99 ml/min; Glucose 192 mg/dL (74-106); Potassium 5.9 mmol/L (3.5-5.1); Sodium Level 140 mmol/L (136-145)
[2018-02-19] MEDS: Heparin Injection (Vial) 5,000 UNIT/ML VIAL 5000 UNIT SC (21:17)
[2018-02-19] MEDS: Insulin Lispro 100 UNIT/ML INSULN.PEN SQ (21:17)
[2018-02-19] MEDS: Carvedilol 6.25 MG Tablet PO (21:17)
[2018-02-19 22:30] LABS: Bedside Glucose 206 mg/dL (70-110)
[2018-02-20] VITALS (8 sets, daily range): BP systolic 149–174; BP diastolic 65–83; PULSE 56–64; RESP 18; TEMP 36.7–37.1; O2SAT 93–97
[2018-02-20] MEDS: oxyCODONE 5 MG Tablet 15 MG PO ×3 (01:00→12:34)
--- NOTE | 2018-02-20 02:21 | EKG12_ITS ---
Test Reason : HYPERKALEMIA Blood Pressure : / mmHG Vent. Rate : 062 BPM Atrial Rate : 062 BPM P-R Int : 178 ms QRS Dur : 094 ms QT Int : 412 ms P-R-T Axes : 024 045 040 degrees QTc Int : 418 ms Normal sinus rhythm Normal ECG When compared with ECG of 19-FEB-2018 13:58, MANUAL COMPARISON REQUIRED, DATA IS UNCONFIRMED Confirmed by WILFREDO DYER, EVY ([id number]), scientific editor MATT MCDUFFIE ([id number]) on 02/27/2018 1:31:54 PM Referred By: Donis Jung Confirmed By:EYV VILLALOBOS MD
[2018-02-20] MEDS: 0.9% Normal Saline 1,000 ML 150 ML IV (02:42)
[2018-02-20] MEDS: Polyethylene Glycol 3350 17 GM PACKET PO (02:52)
[2018-02-20] MEDS: Sodium Polystyrene Sulfonate 15 GM/60 ML UDC 30 GM PO (02:54)
[2018-02-20] MEDS: Dextrose 50%-Water 25 GM/50 ML DISP.SYRIN IV (02:58)
[2018-02-20 06:58] LABS: Absolute Lymphocyte Count 2.13 X10^3/ul (0.83-4.51); Absolute Neutrophil Count 2.4 X10^3/uL (2.0-7.7); Basophil# 0.03 X10^3/uL; Basophil% 0.5 % (0-1); Eosinophil# 0.34 X10^3/uL; Eosinophils% 6.2 % (0-5); Hematocrit 29.7 % (40-54); Hemoglobin 9.5 g/dl (13.0-16.5); Lymphocyte # 2.13 X10^3/ul (4.0); Lymphocyte % 38.6 % (19-41); Mean Corpuscular Hgb 25.7 pg (27.0-32.0); Mean Corpuscular Volume 80.5 fL (80-94); Mean Platelet Vol. 11.4 fl (6.2-12.0); Monocyte# 0.58 X10^3/uL; Monocyte% 10.5 % (0-10); Neutrophil # 2.42 X10^3/uL (2.7-7.7); Neutrophil % 43.8 % (47-70); POSITIVE COUNT NO; POSITIVE DIFFERENTIAL NO; POSITIVE MORPHOLOGY NO; Platelet Count 224 K/mm3 (150-450); RBC Distribution Width SD 45.9 fl (35.1-43.9); Red Blood Count 3.69 M/mm3 (4.6-6.2); White Blood Count 5.5 K/mm3 (4.4-11.0)
[2018-02-20 07:03] LABS: Anion Gap 11 (5-15); BUN 72 mg/dL (7-18); BUN/Creat Ratio 16.1 RATIO (10-20); Calcium,Total 8.3 mg/dL (8.5-10.1); Chloride 111 mmol/L (98-107); Creatinine, Serum 4.47 mg/dL (0.70-1.30); EST Glomerular Filtration Rate 14 mL/min (>60); Est Glom Filt Rate - Afr Amer 17 mL/min (>60); Estimated Creatinine Clearance 20.18 ml/min; Glucose 88 mg/dL (74-106); Potassium 4.6 mmol/L (3.5-5.1); Sodium Level 143 mmol/L (136-145)
[2018-02-20 07:05] LABS: Bedside Glucose 79 mg/dL (70-110)
--- NOTE | 2018-02-20 07:22 | NURSING ---
Was consulted on patient for right foot wound. Pt has been [facility] with Dr Doss. Epi Fix was applied on 02/18/18 with a full contact cast (see wound center note), and not to be removed for one week. Nothing for the wound nurse to assess at this time.
[2018-02-20] MEDS: Aspirin E.C. 81 MG Tablet PO (10:05)
[2018-02-20] MEDS: Ferrous Sulfate 325 MG Tablet PO (10:05)
[2018-02-20] MEDS: Glucerna Shake 120 ML LIQUID PO ×2 (10:05→12:30)
[2018-02-20] MEDS: amLODIPine 10 MG Tablet PO (10:06)
[2018-02-20] MEDS: Lisinopril 20 MG Tablet PO (10:07)
[2018-02-20] MEDS: Cyanocobalamin 500 MCG Tablet 1000 MCG PO (10:07)
[2018-02-20] MEDS: Furosemide 20 MG Tablet PO (10:07)
[2018-02-20] MEDS: Doxazosin 1 MG Tablet 2 MG PO (10:08)
[2018-02-20] MEDS: Carvedilol 6.25 MG Tablet PO (10:08)
[2018-02-20] MEDS: Heparin Injection (Vial) 5,000 UNIT/ML VIAL 5000 UNIT SC (10:17)
[2018-02-20 10:45] LABS: Bedside Glucose 175 mg/dL (70-110)
--- NOTE | 2018-02-20 11:20 | CASEMGMT ---
Face to Face with patient for initial transition planning/care coordination assessment. SARAH GROVE introduced self and role at [facility], pt voices understanding and consents to assessment at this time. Pt is sitting up in bed in no distress at this time. Pt is A/O x4 at this time and answers all questions appropriately. Care providers, pharmacy, and demographics verified. See attached link. Pt voices no further concerns/needs at this time. Advised pt to ask for CM if any further questions/concerns/needs arise, voices understanding. CM to follow for any further discharge planning/needs. PLAN[place] SARAH GROVE
[2018-02-20 11:40] LABS: Bedside Glucose 169 mg/dL (70-110)
[2018-02-20] MEDS: Insulin Lispro 100 UNIT/ML INSULN.PEN SQ (12:30)
[2018-02-20] MEDS: Insulin Lispro 100 UNIT/ML INSULN.PEN 50 UNIT SC (12:30)
--- NOTE | 2018-02-20 13:02 | PCM.DC ---
- Discharge Diagnoses Current Active Problems: Current Active and Chronic Problems Ulcer of right foot with fat layer exposed (Chronic) Charcot foot due to diabetes mellitus (Chronic) Type 2 diabetes mellitus with diabetic polyneuropathy (Chronic) Leg edema (Chronic) Malnutrition (Chronic) Delayed wound healing (Chronic) Vitamin D deficiency (Chronic) Hyperkalemia (Acute) CKD (chronic kidney disease) stage 5, GFR less than 15 ml/min (Chronic) Anemia (Chronic) You will use the following diet at home:: Calorie/Carbohydrate Controlled (specify 1200, 1400, etc) - 1800 yao / day, Renal (restricted protein/sodium) Your food should be the consistency of: Regular Your liquids should be the consistency of: Regular/Thin Discharge Activity: Return to Normal Activity Additional Instructions: Lab: BMP in 3 days Allergies/Adverse Reactions: Allergies amoxicillin Allergy (Verified 02/19/18 13:27) Swelling baclofen Allergy (Verified 02/19/18 13:27) Swelling pregabalin [From Lyrica] Allergy (Verified 02/19/18 13:27) Swelling Sulfa (Sulfonamide Antibiotics) Allergy (Verified 02/19/18 13:27) Swelling Medications to take at Discharge Amlodipine [Norvasc] 10 mg PO DAILY 02/19/18 Aspirin E.C. [Ecotrin] 81 mg PO DAILY 02/19/18 Atorvastatin Calcium 80 mg PO DAILY 02/19/18 Carvedilol 6.25 mg PO BID 02/19/18 Cyanocobalamin (Vitamin B-12) [B-12] 1,000 mcg PO DAILY 02/19/18 Doxazosin Mesylate 2 mg PO DAILY 02/19/18 Ferrous Sulfate [Iron] 325 mg PO DAILY 02/19/18 Furosemide [Lasix] 20 mg PO DAILY 02/19/18 Insulin Glargine,Hum.rec.anlog [Basaglar Kwikpen U-100] 75 unit SQ BID 02/19/18 Insulin Lispro [Humalog KwikPen] 50 units SQ TIDCM 02/19/18 Lisinopril 20 mg PO DAILY 02/19/18 Oxycodone [Oxyir] 15 mg PO Q6H 02/19/18 Primary Care Physician: Tony Terry,Out of [Primary Care Provider] - Please follow up with your Primary Care Physician in: 1-2 weeks Test Results: Test results from this visit will be discussed in further detail at your follow-up appointment, if applicable. Please Follow Up With: Your sheet sewer Gloria Brooks When: 5-7 days Proposed Discharge Date: 02/20/18
--- NOTE | 2018-02-20 14:47 | PCM.DC.SUM ---
<Mayito Degroot - Last Filed: 02/20/18 14:51> Discharge Date and Diagnosis - Problem List Patient Problems: Active and Suspected Problems Venous insufficiency (Suspected) Other specified peripheral vascular diseases (Suspected) Date of Admission: 02/19/18 Date of Discharge: 02/20/18 - Primary Discharge Diagnosis Active and Suspected Problems Hyperkalemia 2/2 medication noncompliance CKD stage IV-V T2DM chronic anemia charcot foot - Secondary Discharge Diagnosis Chronic Problems Ulcer of right foot with fat layer exposed (Chronic) Charcot foot due to diabetes mellitus (Chronic) Type 2 diabetes mellitus with diabetic polyneuropathy (Chronic) Leg edema (Chronic) Malnutrition (Chronic) Delayed wound healing (Chronic) Vitamin D deficiency (Chronic) CKD (chronic kidney disease) stage 5, GFR less than 15 ml/min (Chronic) Anemia (Chronic) Hospital Course and Treatment Consultations 02/19/18 16:39 Consult: Onc/Wound/bowling alley attendant Routine Comment: Operations: None Procedures: None Summary of Care Provided: Physical exam on day of discharge: General: Resting comfortably NAD Psych: A/Ox3 normal affect HEENT: PEARRLA AT NC Neck: Supple NT CV: RRR no m/t/r/g/h Resp: CTA Abd: [id number] Soft NT no guarding or rigidity Ext: DP2+= no edema Skin: W/D normal turgor Lymph/Heme: No active bleeding or adenopathy Neuro: CN2-12 intact Hospital course: The patient is a 62 year old M with a hx of CKD IV/V followed by a neprhologist in [place] not on dialysis, who presented to the ER after being called by doctors office following routine blood work showing elevated potassium. He states he was feeling well. He does not have a ornament stitcher in the area as he is staying with his daughter for extra help following foot surgery per Dr. Doss and care at the wound center here. He was found to have K of 6.2 and was give calcium gluc, kayex, insulin, glucose, and albuterol. He was admitted to the PCU on tele. He did well overnight and his potassium returned to normal by the following AM. No events on tele. He admitted to not appropriately taking his medications at home and missing several doses given his recent move. I advised him to have an outpatient BMP in 3 days and to see his ornament stitcher within a week. He was discharged home with his daughter in stable condition. This patient was seen by Mayito Degroot PA-C under the supervision of Doctor Alverto. [] Discharge Diet: 1800 Calorie Control Diet, Renal Diet Discharge Activity: Return to Normal Activity Home Medications: Medications to take at Discharge Amlodipine [Norvasc] 10 mg PO DAILY 02/19/18 Aspirin E.C. [Ecotrin] 81 mg PO DAILY 02/19/18 Atorvastatin Calcium 80 mg PO DAILY 02/19/18 Carvedilol 6.25 mg PO BID 02/19/18 Cyanocobalamin (Vitamin B-12) [B-12] 1,000 mcg PO DAILY 02/19/18 Doxazosin Mesylate 2 mg PO DAILY 02/19/18 Ferrous Sulfate [Iron] 325 mg PO DAILY 02/19/18 Furosemide [Lasix] 20 mg PO DAILY 02/19/18 Insulin Glargine,Hum.rec.anlog [Basaglar Kwikpen U-100] 75 unit SQ BID 02/19/18 Insulin Lispro [Humalog KwikPen] 50 units SQ TIDCM 02/19/18 Lisinopril 20 mg PO DAILY 02/19/18 Oxycodone [Oxyir] 15 mg PO Q6H 02/19/18 Primary Care Physician: Tony Terry,Out of [Primary Care Provider] - Please follow up with your Primary Care Physician in: 1-2 weeks Please Follow Up With: Your ornament stitcher Gloria Brooks When: 5-7 days Disposition: Home Minutes spent on discharge:: 35 Medical Necessity - Tobacco Use Smoking Status: Former smoker Tobacco Use: Cigarettes, Chew Meaningful Use Info Meaningful Use Diagnoses (Choose all that apply): None applicable <Akira Del Toro - Last Filed: 02/20/18 18:35> Discharge Date and Diagnosis - Primary Discharge Diagnosis Active and Suspected Problems Venous insufficiency (Suspected) Other specified peripheral vascular diseases (Suspected) - Secondary Discharge Diagnosis Chronic Problems Ulcer of right foot with fat layer exposed (Chronic) Charcot foot due to diabetes mellitus (Chronic) Type 2 diabetes mellitus with diabetic polyneuropathy (Chronic) Leg edema (Chronic) Malnutrition (Chronic) Delayed wound healing (Chronic) Vitamin D deficiency (Chronic) CKD (chronic kidney disease) stage 5, GFR less than 15 ml/min (Chronic) Anemia (Chronic) Hospital Course and Treatment Consultations 02/19/18 16:39 Consult: Onc/Wound/bowling alley attendant Routine Comment: Summary of Care Provided: This patient was seen in conjunction with Mayito BEACH. I have independently interviewed and examined the patient and reviewed pertinent history, examination findings, laboratory and plan of management. I have reviewed the note and agree with the documented findings with the few additional points. In brief, patient is admitted for hyperkalemia. Patient has CKD stage V but nonoliguric kidney failure. Patient is still responding to diuretic and is making about 1.5-2 L per day on diuretic and had about total of 3750 mL urine output. Patient also has psoriasis. Patient was advised to follow with nephrology and prepare for dialysis access. Patient follows ornament stitcher Dr.Pushkar Gilmore. Does not have any active symptoms. I have discussed my assessment with Mayito BEACH and orders have been reviewed.] Discharge meds reconciliation done. Follow-up instructions completed. Code Visit Inpatient E&M: 14450 Disch Hosp
== END 2018-02-20 16:25 | disposition home or self-care (01) | DRG 296 ==
LOC: ED 14:52 → PCU 16:26
PROVIDERS: Admitting Provider Family Medicine; Emergency Provider Emergency Medicine; Referring Provider Family Medicine; Visit Provider Internal Medicine
DX: E87.5 Hyperkalemia (principal); I12.0 Hypertensive chronic kidney disease with stage 5 chronic kidney disease or end stage renal disease; N18.5 Chronic kidney disease, stage 5; Z79.4 Long term (current) use of insulin; E11.610 Type 2 diabetes mellitus with diabetic neuropathic arthropathy; Z87.891 Personal history of nicotine dependence; E11.22 Type 2 diabetes mellitus with diabetic chronic kidney disease; E55.9 Vitamin D deficiency, unspecified; E11.42 Type 2 diabetes mellitus with diabetic polyneuropathy; Z91.14 Patient's other noncompliance with medication regimen; D63.8 Anemia in other chronic diseases classified elsewhere; I87.2 Venous insufficiency (chronic) (peripheral)
CPT/HCPCS: 15275; 29445; 36415; 80048; 82962; 85025; 93005; 94640; 97162; 97166; 99218; 99283; J7030; Q4131; G0378; J0610

== ENCOUNTER → 2018-02-23 12:39 | Outpatient (CLI) | payer MEDICAID, SELFPAY ==
[2018-02-23 13:30] LABS: Anion Gap 8 (5-15); BUN 55 mg/dL (7-18); BUN/Creat Ratio 14.2 RATIO (10-20); Calcium,Total 8.8 mg/dL (8.5-10.1); Chloride 105 mmol/L (98-107); Creatinine, Serum 3.87 mg/dL (0.70-1.30); EST Glomerular Filtration Rate 17 mL/min (>60); Est Glom Filt Rate - Afr Amer 20 mL/min (>60); Glucose 174 mg/dL (74-106); Sodium Level 139 mmol/L (136-145)
== END ==
PROVIDERS: Visit Provider Physician Assistant
DX: N18.5 Chronic kidney disease, stage 5 (principal); E87.5 Hyperkalemia
CPT/HCPCS: 36415; 80048

== ENCOUNTER 2018-03-11 11:15 | Outpatient (RCR) | payer MEDICAID, SELFPAY ==
[2018-02-14 01:53] VITALS: BP 138/71; PULSE 70; RESP 18; TEMP 35.9
[2018-02-18 13:47] VITALS: BP 165/66; PULSE 64; RESP 18; TEMP 35.5
--- NOTE | 2018-02-18 15:55 | PCM.WC.PN ---
(1) Ulcer of right foot with fat layer exposed Status: Chronic Current Visit: Yes Code(s): L97.512 - Non-pressure chronic ulcer of other part of right foot with fat layer exposed (2) Charcot foot due to diabetes mellitus Status: Chronic Current Visit: Yes Code(s): E11.610 - Type 2 diabetes mellitus with diabetic neuropathic arthropathy (3) Type 2 diabetes mellitus with diabetic polyneuropathy Status: Chronic Current Visit: Yes Qualifiers: Code(s): E11.42 - Type 2 diabetes mellitus with diabetic polyneuropathy (4) Venous insufficiency Status: Suspected Current Visit: Yes Code(s): I87.2 - Venous insufficiency (chronic) (peripheral) (5) Leg edema Status: Chronic Current Visit: Yes Code(s): R60.0 - Localized edema (6) Malnutrition Status: Chronic Current Visit: Yes Code(s): E46 - Unspecified protein-calorie malnutrition (7) Delayed wound healing Status: Chronic Current Visit: Yes Code(s): T14.8XXD - Other injury of unspecified body region, subsequent encounter (8) Other specified peripheral vascular diseases Status: Suspected Current Visit: Yes Code(s): I73.89 - Other specified peripheral vascular diseases (9) Vitamin D deficiency Status: Acute Current Visit: Yes Code(s): E55.9 - Vitamin D deficiency, unspecified Type of Wound Date of Service: 02/18/18 Chief Complaint: Right foot ulcer History of Wound: This 62-year-old male with diabetes and other comorbidities was seen in the wound healing center for right foot ulcer that has an onset of April 2017. He wore a total contact cast last week and did well. He denies fever, chill, nausea, vomiting, loss of appetite. He was unable to obtain his vascular studies and reports he did have them done at an outside facility including evaluation of the arteries and veins. He has not been able to schedule with the log driver yet and reports he did look at the referral paper. Progress of Wound: Stable - Physical Exam Vital Signs Temp Pulse Resp BP 95.9 F L 64 18 165/66 H 02/18/18 13:47 02/18/18 13:47 02/18/18 13:47 02/18/18 13:47 General: Alert, Oriented x3, Cooperative Extremities: No cyanosis, Capillary Refill Less than 3 Seconds, No Calf Tenderness - Negative Laci and Yoder sign bilateral, Diminished Peripheral Pulses, Edema - Bilateral lower extremities Skin: Ulcer/ Wound - No purulence, no erythema, streaking, no odor, no infection, no acute deep tissue exposure. There is peripheral callus. The wound bed is granular. Wound Measurements and Assessment WC - Nurse 1 - General Ulcer Measurement Start: 02/18/18 13:47 Freq: Status: Active Protocol: Activity Type Activity Date Activity User E-Sign Co-Sign Detail Recorded Client Recorded Date Recorded By Document 02/18/18 13:47 [id number] 02/18/18 13:49 02/18/18 13:47 Wound Center Nurse 1 [Ulcer Assessment] #1 R midfoot plantar -Combined with other wound No -Current Size (cm) - Length 1.8 -Current Size (cm) - Width 3.8 -Current Size (cm) - Depth 0.2 -Total Square Cm 6.84 -Photo Taken No -Epithelialization None Present -Tunneling No -Undermining/Tunneling No -Circular Undermining No -Exudate Amt Large (67-100%) -Exudate Type Yellow/Green -Wound Margin Flat & Intact -Granulation Amt Large (67-100%) -Granulation Quality Red -Slough/Fibrin Yes -Necrosis Amt Small (1-33%) -Necrotic Tissue Type Adherent Slough -Structure Exposed N/A -Texture (Anna-wound Skin Appearance) Assessed Localized Edema -Moisture (Anna-wound Skin Appearance Assessed ) Maceration -Color (Anna-wound Skin Appearance) Assessed -Temperature (Anna-wound Skin No Abnormality Appearance) (Pt Warm) -Tenderness on Palpation (Anna-wound No Skin Appearance) -Ulcer Cleansing Wound Cleanser -Foul Odor after Cleansing No [Edema Assessment] -Lower Limb Edema Present NA WC - Nurse 2 - General Ulcer CM Notes Start: 02/18/18 13:47 Freq: Status: Active Protocol: Activity Type Activity Date Activity User E-Sign Co-Sign Detail Recorded Client Recorded Date Recorded By Document 02/18/18 14:23 [id number] 02/18/18 14:30 02/18/18 14:23 Wound Center Nurse 2 [Procedure/Treatment] #1 R midfoot plantar -Time 14:27 -Correct Patient Yes -Correct Side, Site, Position Yes -Correct Procedure Yes -Procedure Performed Yes -Type of Procedure Debridement -Clinical Debridement Subcutaneous -Post Debridement Size (cm) - Length 1.9 -Post Debridement Size (cm) - Width 3.9 -Post Debridement Size (cm) - Depth 0.2 -Total Square Cm 7.41 -Wound/Ulcer Outcome Not Healed -Ulcer Cleansing Rinsed/ Irrigated with Saline -Foul Odor after Cleansing No -Bioengineered Tissue Yes -Type of bioengineered Tissue EPIFIX -Expiration Date 11/14/22 -Product Lot Number [id number] -Percent Used 100 -Saline Lot Number [id number] -Topical Lidocaine (%) 4 -Bleeding Controlled with Pressure -Treatment Response Procedure Tolerated Well [See Physician Procedure note for Specifics] Pain Scale: 0-10 Numeric [Pain] -Is Patient Pain Free? Yes Musculoskeletal: No Tenderness to Palpation of Joints or Extremities, Muscle Wasting, - - Rocker-bottom foot. Compartments remain soft Neurological: - - Lack of epicritic sensation light touch Psych/Mental Status: Normal Affect, Appropriate Debridement Note Post-Debridement Measurements/Treatment WC - Nurse 2 - General Ulcer CM Notes Start: 02/18/18 13:47 Freq: Status: Active Protocol: Activity Type Activity Date Activity User E-Sign Co-Sign Detail Recorded Client Recorded Date Recorded By Document 02/18/18 14:23 [id number] 02/18/18 14:30 02/18/18 14:23 Wound Center Nurse 2 #1 R midfoot plantar -Time 14:27 -Correct Patient Yes -Correct Side, Site, Position Yes -Correct Procedure Yes -Procedure Performed Yes -Type of Procedure Debridement -Clinical Debridement Subcutaneous -Post Debridement Size (cm) - Length 1.9 -Post Debridement Size (cm) - Width 3.9 -Post Debridement Size (cm) - Depth 0.2 -Total Square Cm 7.41 -Wound/Ulcer Outcome Not Healed -Ulcer Cleansing Rinsed/ Irrigated with Saline -Foul Odor after Cleansing No -Bioengineered Tissue Yes -Type of bioengineered Tissue EPIFIX -Expiration Date 11/14/22 -Product Lot Number [id number] -Percent Used 100 -Saline Lot Number [id number] -Topical Lidocaine (%) 4 -Bleeding Controlled with Pressure -Treatment Response Procedure Tolerated Well Pain Scale: 0-10 Numeric Is Patient Pain Free? Yes Wound debrided: plantar foot Laterality: Right Wound Grade/Stage: grade 1 Type of Debridement: Excisional debridement Anesthesia Used: 4% Lidocaine Solution Depth: in the subcutaneous layer Percentage of wound debrided: 100 Instrument Used: #15 blade Tissue Removed: fibrous, devitalized subcutaneous, biofilm, slough Severity: Fat Layer Exposed Amount of bleeding with debridement: Mild Bleeding Controlled with: Pressure Patient tolerated procedure well Assessment/Plan Active Problems Ulcer of right foot with fat layer exposed (Chronic) Charcot foot due to diabetes mellitus (Chronic) Type 2 diabetes mellitus with diabetic polyneuropathy (Chronic) Leg edema (Chronic) Malnutrition (Chronic) Delayed wound healing (Chronic) Vitamin D deficiency (Acute) Assessment: Plantar james grade 1 foot ulcer, no infection. Charcot foot, stable and nonacute. Diabetes with neuropathy. Delayed healing. Malnutrition suspected. Equinus. Compliance compromise Plan: I reviewed and discussed his case today. His total contact cast is removed and the limb was cleansed. Debridement was performed as noted in the clinical panel. Verbal consent was obtained and advanced wound care product, epi fix was applied according to standard protocol. This was secured in place with Steri-Strips and wound veil and further covered with Aquacel Ag. An additional total contact cast was applied in a well-padded and rectus manner according to standard protocol; he tolerated this well. His labs are reviewed from last July 2017 including CBC and CMP. It is noted his BUN is 46 and his hemoglobin A1c was 11.3. Also recommend nutritional supplementation optimize healing. I provided prescription for Cole and he was advised on proper use. A referral to nutrition services at [facility] was also recommended and a referral was provided. He was encouraged to follow through on setting this up. I recommend a noninvasive vascular study and these results will be obtained; he reports he had this done in [place]. I also recommend venous study to see if he has insufficiency. Additional record request will be pursued again this week. If we are still unable to obtain these results I will order new ones; he will also try to obtain this as well. To elevate limbs at rest and to avoid idle standing or sitting. To return the wound healing center 1 week or call sooner if he has any questions or concerns. I answered all his questions today.
[2018-02-25 13:08] VITALS: RESP 18; TEMP 36.1
--- NOTE | 2018-02-25 14:12 | PCM.WC.PN ---
(1) Ulcer of right foot with fat layer exposed Status: Chronic Current Visit: Yes Code(s): L97.512 - Non-pressure chronic ulcer of other part of right foot with fat layer exposed (2) Charcot foot due to diabetes mellitus Status: Chronic Current Visit: Yes Code(s): E11.610 - Type 2 diabetes mellitus with diabetic neuropathic arthropathy (3) Type 2 diabetes mellitus with diabetic polyneuropathy Status: Chronic Current Visit: Yes Qualifiers: Code(s): E11.42 - Type 2 diabetes mellitus with diabetic polyneuropathy (4) Venous insufficiency Status: Suspected Current Visit: Yes Code(s): I87.2 - Venous insufficiency (chronic) (peripheral) (5) Leg edema Status: Chronic Current Visit: Yes Code(s): R60.0 - Localized edema (6) Malnutrition Status: Chronic Current Visit: Yes Code(s): E46 - Unspecified protein-calorie malnutrition (7) Delayed wound healing Status: Chronic Current Visit: Yes Code(s): T14.8XXD - Other injury of unspecified body region, subsequent encounter (8) Other specified peripheral vascular diseases Status: Suspected Current Visit: Yes Code(s): I73.89 - Other specified peripheral vascular diseases (9) Maceration of periwound skin Status: Chronic Current Visit: Yes Code(s): L98.8 - Other specified disorders of the skin and subcutaneous tissue Type of Wound Date of Service: 02/25/18 Chief Complaint: Right foot ulcer History of Wound: This 63-year-old male with diabetes and other comorbidities was seen in the wound healing center for right foot ulcer that has an onset of April 2017. He wore a total contact cast last week and and has moisture buildup with an odor. He denies fever, chill, nausea, vomiting, loss of appetite. He was unable to obtain his vascular studies from earlier this year from an outside facility and he was also not able to attend his scheduled vascular studies today at the hospital. He relates he does have an upcoming nutrition referral scheduled in an outside facility. Progress of Wound: Improving quality - Physical Exam Vital Signs Temp Pulse Resp BP 96.9 F L 64 18 165/66 H 02/25/18 13:08 02/18/18 13:47 02/25/18 13:08 02/18/18 13:47 General: Alert, Oriented x3, Cooperative Extremities: No cyanosis, Capillary Refill Less than 3 Seconds, No Calf Tenderness - Negative Laci and Yoder sign bilateral, Diminished Peripheral Pulses, Edema - Bilateral lower extremities, - - Rocker-bottom foot with pes planus right lower extremity. Decreased ankle joint dorsiflexion with the knee extended right lower extremity Skin: Ulcer/ Wound - No purulence, no erythema, streaking, no infection to the right foot. There is an odor with maceration noted secondary to increased moisture retention and the total contact cast is likely. There is no purulence on expression or deep probing noted Wound Measurements and Assessment - Nurse 1 - General Ulcer Measurement Start: 02/18/18 13:47 Freq: Status: Active Protocol: Activity Type Activity Date Activity User E-Sign Co-Sign Detail Recorded Client Recorded Date Recorded By Document 02/25/18 13:08 [facility] [id number] 02/25/18 13:23 [facility] 02/25/18 13:08 Wound Center Nurse 1 [Ulcer Assessment] #1 R midfoot plantar -Combined with other wound No -Current Size (cm) - Length 0.1 -Current Size (cm) - Width 0.1 -Current Size (cm) - Depth 0.1 -Total Square Cm 0.01 -Photo Taken No -Texture (Anna-wound Skin Appearance) Localized Edema Scarring -Moisture (Anna-wound Skin Appearance Maceration ) Dry/Scaly -Color (Anna-wound Skin Appearance) Erythema Palor - Nurse 2 - General Ulcer CM Notes Start: 02/18/18 13:47 Freq: Status: Active Protocol: Activity Type Activity Date Activity User E-Sign Co-Sign Detail Recorded Client Recorded Date Recorded By Document 02/25/18 13:39 [id number] 02/25/18 13:51 02/25/18 13:39 Wound Center Nurse 2 [Procedure/Treatment] -Time 13:50 -Correct Patient Yes -Correct Side, Site, Position Yes -Correct Procedure Yes -Procedure Performed Yes -Type of Procedure Debridement -Clinical Debridement Subcutaneous -Post Debridement Size (cm) - Length 1.9 -Post Debridement Size (cm) - Width 3.9 -Post Debridement Size (cm) - Depth 0.2 -Total Square Cm 7.41 -Wound/Ulcer Outcome Not Healed -Ulcer Cleansing Rinsed/ Irrigated with Saline -Foul Odor after Cleansing No -Bioengineered Tissue No -Bleeding Controlled with Pressure -Treatment Response Procedure Tolerated Well [See Physician Procedure note for Specifics] Pain Scale: 0-10 Numeric [Pain] -Is Patient Pain Free? Yes Musculoskeletal: No Tenderness to Palpation of Joints or Extremities, Muscle Wasting, - - Compartments of the right foot and leg and ankle remain soft Neurological: - - Lack of epicritic sensation light touch right lower extremity Psych/Mental Status: Normal Affect, Appropriate Debridement Note Post-Debridement Measurements/Treatment WC - Nurse 2 - General Ulcer CM Notes Start: 02/18/18 13:47 Freq: Status: Active Protocol: Activity Type Activity Date Activity User E-Sign Co-Sign Detail Recorded Client Recorded Date Recorded By Document 02/18/18 14:23 TM [id number] 02/18/18 14:30 TM Document 02/25/18 13:39 TM [id number] 02/25/18 13:51 TM 02/18/18 02/25/18 14:23 13:39 Wound Center Nurse 2 #1 R midfoot plantar -Time 14:27 13:50 -Correct Patient Yes Yes -Correct Side, Site, Position Yes Yes -Correct Procedure Yes Yes -Procedure Performed Yes Yes -Type of Procedure Debridement Debridement -Clinical Debridement Subcutaneous Subcutaneous -Post Debridement Size (cm) - Length 1.9 1.9 -Post Debridement Size (cm) - Width 3.9 3.9 -Post Debridement Size (cm) - Depth 0.2 0.2 -Total Square Cm 7.41 7.41 -Wound/Ulcer Outcome Not Healed Not Healed -Ulcer Cleansing Rinsed/ Rinsed/ Irrigated with Irrigated with Saline Saline -Foul Odor after Cleansing No No -Bioengineered Tissue Yes No -Type of bioengineered Tissue EPIFIX -Expiration Date 11/14/22 -Product Lot Number [id number] -Percent Used 100 -Saline Lot Number [id number] -Topical Lidocaine (%) 4 -Bleeding Controlled with Pressure Pressure -Treatment Response Procedure Procedure Tolerated Well Tolerated Well Pain Scale: 0-10 Numeric Is Patient Pain Free? Yes Yes Wound debrided: plantar foot Laterality: Right Wound Grade/Stage: grade 1 Type of Debridement: Excisional debridement Anesthesia Used: 4% Lidocaine Solution Depth: in the subcutaneous layer Percentage of wound debrided: 100 Instrument Used: #15 blade Tissue Removed: fibrous, devitalized subcutaneous, biofilm, slough Severity: Fat Layer Exposed Amount of bleeding with debridement: Mild Bleeding Controlled with: Pressure Patient tolerated procedure well Assessment/Plan Active Problems Ulcer of right foot with fat layer exposed (Chronic) Charcot foot due to diabetes mellitus (Chronic) Type 2 diabetes mellitus with diabetic polyneuropathy (Chronic) Leg edema (Chronic) Malnutrition (Chronic) Delayed wound healing (Chronic) Vitamin D deficiency (Chronic) Maceration of periwound skin (Chronic) Assessment: Plantar james grade 1 foot ulcer, no infection. Charcot foot, stable and nonacute. Diabetes with neuropathy. Delayed healing. Malnutrition suspected. Equinus. Compliance compromise Plan: I reviewed and discussed his case today. His total contact cast is removed and the limb was cleansed. Debridement was performed as noted in the clinical panel. He was advised to clean the site daily with Dial soap and water and to avoid soaking. I recommend he change the dressing daily with Thuy and gauze. If he runs at a [facility], he was advised he can use the remainder of the Aquacel that he has at home. I would like to consider an additional total contact cast with advanced wound care product application next week if his maceration resolves. His updated labs were reviewed including: White blood cell count 5.5, creatinine 3.87, glucose 174, albumin 2.3, total protein 7.3. I also recommend nutritional supplementation optimize healing. I provided prescription for Cole and he was advised on proper use. A referral to nutrition services at [facility] was also recommended and a referral was provided. He relates he has a scheduled at a different hospital and I encouraged him to attend. I recommend updated noninvasive arterial and venous studies to evaluate for peripheral arterial disease and venous insufficiency, respectively. He missed his appointment and these were actually rescheduled for later this afternoon. To elevate limbs at rest and to avoid idle standing or sitting. He was admitted to the hospital last week for hyperkalemia and this is noted. I reviewed his inpatient workup and evaluation. He was discharged in stable condition. He is further reassured no local signs of infection or further tissue necrosis is noted at his ulcer site. To return the wound healing center 1 week or call sooner if he has any questions or concerns. I answered all his questions today.
--- NOTE | 2018-02-25 14:19 | VDLE_ITS ---
Reason For Study: Non-healing wound RIGHT LEFT CFV is compressible, spontaneous, phasic, CFV is compressible, spontaneous, phasic, competent and demonstrates normal competent, and demonstrates normal augmentation. augmentation. FV is compressible, spontaneous, phasic, FV is compressible, spontaneous, phasic, competent and demonstrates normal competent and demonstrates normal augmentation. augmentation. POP V is compressible, spontaneous, phasic, POP V is compressible, spontaneous, phasic, competent and demonstrates normal competent and demonstrates normal augmentation. augmentation. T/P Trunk is compressible. T/P Trunk is compressible. PTV is compressible. PTV is compressible. RT PerV is compressible. LT PerV is compressible. SFJ is competent SFJ is INCOMPETENT GSV is INCOMPETENt with reflux greater GSV is INCOMPETENT with reflux greater than .5 sec and diameter of .59 x .60 cm than .5 sec and diameter of.47 x .49 cm ASV is INCOMPETENT with reflux greater SSV is competent than .5 sec and diameter of .52 x .57 cm INCOMPETENT band tumbler 15 cm prox to medial SSV is INCOMPETENT with reflux greater malleolus. than .5 sec and diameter of .47 x .47 cm. Procedure Exam performed in department. A preliminary report was called and/or faxed to [facility]. Interpretation Summary Deep veins of the lower extremities are bilaterally patent and compressible segmentally. There is no evidence of deep vein thrombosis on either side. Valvular competence appears intact within the proximal deep venous systems bilaterally. The greater saphenous veins appear bilaterally patent and compressible segmentally. The right sapheno-femoral junction is competent . The left sapheno- femoral junction is incompetent . Segmental valvular incompetence is noted within the greater saphenous veins bilaterally. The right small saphenous vein is patent and incompetent. The left small saphenous vein is patent and competent. The right accessory saphenous vein is incompetent. An incompetent band tumbler vein is identified in the left calf, located 15 centimeters proximal to the left medial malleolus. Ordering Physician: Sophia oDss Performed By: Ramya Welsh RVT
--- NOTE | 2018-03-02 07:14 | LEAS ---
Arterial Study - Arterial Study Arterial Study: This is a 63-year-old male with a history of diabetes mellitus and smoking. He has previously undergone left lower extremity toe amputations. He presents now with a chronic nonhealing wound to the right lower extremity. Suspecting the presence of atherosclerotic peripheral arterial occlusive disease, the patient was brought to the noninvasive vascular laboratory at this time for the purpose of bilateral noninvasive lower extremity arterial assessment. Doppler signal assessment was used to evaluate the pulses at ankle level bilaterally. The posterior tibial and dorsalis pedis pulses were triphasic bilaterally. Segmental limb pressures were obtained bilaterally. Ankle pressures, as determined by posterior tibial pulses, could not be determined on either side due to the noncompressibility of the vasculature. The right ankle pressure, as determined by dorsalis pedis pulse, was measured at 230 mmHg. The right digital pressure was measured at 217 mmHg. The left ankle pressure, as determined by dorsalis pedis pulse, was measured at 235 mmHg. The left digital pressures could not be obtained due to prior amputations. Pulse-volume recordings were obtained bilaterally and segmentally. Waveform amplitudes appeared to be satisfactory at all levels bilaterally. Resting ankle-brachial indices were calculated bilaterally. The resting right ankle-brachial index was calculated to be 1.24. The resting left ankle-brachial index was calculated to be 1.26. The right digital-brachial index was calculated to be 1.17. The left digital-brachial index could not be determined due to prior toe amputations. Impression: Based upon the findings of this resting noninvasive lower extremity arterial study, there is no evidence of significant atherosclerotic peripheral arterial occlusive disease in the lower extremities bilaterally. Triphasic waveforms were noted at ankle level bilaterally. Resting ankle-brachial indices were bilaterally normal. The right digital-brachial index was also normal. The left digital-brachial index could not be determined due to prior toe amputations.
--- NOTE | 2018-03-02 07:21 | LEAS_ITS ---
Arterial Study - Arterial Study Arterial Study: This is a 63-year-old male with a history of diabetes mellitus and smoking. He has previously undergone left lower extremity toe amputations. He presents now with a chronic nonhealing wound to the right lower extremity. Suspecting the presence of atherosclerotic peripheral arterial occlusive disease, the patient was brought to the noninvasive vascular laboratory at this time for the purpose of bilateral noninvasive lower extremity arterial assessment. Doppler signal assessment was used to evaluate the pulses at ankle level bilaterally. The posterior tibial and dorsalis pedis pulses were triphasic bilaterally. Segmental limb pressures were obtained bilaterally. Ankle pressures, as determined by posterior tibial pulses, could not be determined on either side due to the noncompressibility of the vasculature. The right ankle pressure, as determined by dorsalis pedis pulse, was measured at 230 mmHg. The right digital pressure was measured at 217 mmHg. The left ankle pressure, as determined by dorsalis pedis pulse, was measured at 235 mmHg. The left digital pressures could not be obtained due to prior amputations. Pulse-volume recordings were obtained bilaterally and segmentally. Waveform amplitudes appeared to be satisfactory at all levels bilaterally. Resting ankle-brachial indices were calculated bilaterally. The resting right ankle-brachial index was calculated to be 1.24. The resting left ankle- brachial index was calculated to be 1.26. The right digital-brachial index was calculated to be 1.17. The left digital- brachial index could not be determined due to prior toe amputations. Impression: Based upon the findings of this resting noninvasive lower extremity arterial study, there is no evidence of significant atherosclerotic peripheral arterial occlusive disease in the lower extremities bilaterally. Triphasic waveforms were noted at ankle level bilaterally. Resting ankle-brachial indices were bilaterally normal. The right digital-brachial index was also normal. The left digital-brachial index could not be determined due to prior toe amputations.
[2018-03-04 12:02] VITALS: BP 161/76; PULSE 64; RESP 16; TEMP 36.3
--- NOTE | 2018-03-04 14:47 | PN.PCM_ITS ---
(1) Ulcer of right foot with fat layer exposed Status: Chronic Code(s): L97.512 - Non-pressure chronic ulcer of other part of right foot with fat layer exposed (2) Charcot foot due to diabetes mellitus Status: Chronic Code(s): E11.610 - Type 2 diabetes mellitus with diabetic neuropathic arthropathy (3) Type 2 diabetes mellitus with diabetic polyneuropathy Status: Chronic Qualifiers: Code(s): E11.42 - Type 2 diabetes mellitus with diabetic polyneuropathy (4) Venous insufficiency Status: Suspected Code(s): I87.2 - Venous insufficiency (chronic) (peripheral ) (5) Leg edema Status: Chronic Code(s): R60.0 - Localized edema (6) Malnutrition Status: Chronic Code(s): E46 - Unspecified protein-calorie malnutrition (7) Delayed wound healing Status: Chronic Code(s): T14.8XXD - Other injury of unspecified body region, subsequent encounter (8) Other specified peripheral vascular diseases Status: Suspected Code(s): I73.89 - Other specified peripheral vascular diseases (9) Maceration of periwound skin Status: Chronic Code(s): L98.8 - Other specified disorders of the skin and subcutaneous tissue Type of Wound Date of Service: 03/07/18 Chief Complaint: Right foot ulcer History of Wound: This 63-year-old male with diabetes and other comorbidities was seen in the wound healing center for right foot ulcer that has an onset of April 2017. He took a break from his total contact cast this last week and defers reapplication today. He denies fever, chill, nausea, vomiting, loss of appetite. He relates he does have an upcoming nutrition referral scheduled in an outside facility. Progress of Wound: Improving - Physical Exam Vital Signs Temp Pulse Resp BP 97.3 F L 64 16 161/76 H 03/04/18 12:02 03/04/18 12:02 03/04/18 12:02 03/04/18 12:02 General: Alert, Oriented x3, Cooperative Extremities: No cyanosis, Capillary Refill Less than 3 Seconds, No Calf Tenderness - Negative Laci and Yoder, Diminished Peripheral Pulses, Edema Skin: Ulcer/ Wound - No purulence, no erythema, streaking, no odor, no acute infection. Peripheral skin is atrophic and hairless. Wound Measurements and Assessment WC - Nurse 1 - General Ulcer Measurement Start: 02/18/18 13:47 Freq: Status: Active Protocol: Activity Type Activity Date Activity User E-Sign Co-Sign Detail Recorded Client Recorded Date Recorded By Document 03/04/18 12:02 YESENIA [id number] 03/04/18 12:06 03/04/18 12:02 Wound Center Nurse 1 [Ulcer Assessment] #1 R midfoot plantar -Combined with other wound No -Current Size (cm) - Length 1.5 -Current Size (cm) - Width 3.1 -Current Size (cm) - Depth 0.2 -Total Square Cm 4.65 -Photo Taken No -Epithelialization Small 1-33% -Tunneling No -Undermining/Tunneling No -Circular Undermining No -Exudate Amt Small (1-33%) -Exudate Type Serosanguineous -Wound Margin Flat & Intact -Granulation Amt Large (67-100%) -Granulation Quality Red -Slough/Fibrin Yes -Necrosis Amt Small (1-33%) -Necrotic Tissue Type Adherent Slough -Structure Exposed N/A -Texture (Anna-wound Skin Appearance) Assessed Localized Edema -Moisture (Anna-wound Skin Appearance Assessed ) Dry/Scaly -Color (Anna-wound Skin Appearance) Assessed -Temperature (Anna-wound Skin No Abnormality Appearance) (Pt Warm) -Tenderness on Palpation (Anna-wound No Skin Appearance) -Ulcer Cleansing Rinsed/ Irrigated with Saline -Foul Odor after Cleansing No -Anesthetic Used 4% Lidocaine Solution [Edema Assessment] -Lower Limb Edema Present Yes -Right Calf (cm) 43.0 -Right Ankle (cm) 26.6 - Nurse 2 - General Ulcer CM Notes Start: 02/18/18 13:47 Freq: Status: Active Protocol: Activity Type Activity Date Activity User E-Sign Co-Sign Detail Recorded Client Recorded Date Recorded By Document 03/04/18 12:13 YESENIA [id number] 03/04/18 12:18 03/04/18 12:13 Wound Center Nurse 2 [Procedure/Treatment] #1 R midfoot plantar -Time 12:13 -Correct Patient Yes -Correct Side, Site, Position Yes -Correct Procedure Yes -Procedure Performed Yes -Type of Procedure Debridement -Clinical Debridement Subcutaneous -Post Debridement Size (cm) - Length 1.5 -Post Debridement Size (cm) - Width 3.2 -Post Debridement Size (cm) - Depth 0.2 -Total Square Cm 4.80 -Wound/Ulcer Outcome Not Healed -Ulcer Cleansing Rinsed/ Irrigated with Saline -Foul Odor after Cleansing No -Bioengineered Tissue Yes -Type of bioengineered Tissue EPIFIX -Expiration Date 11/14/22 -Product Lot Number [id number] -Percent Used 100 -Saline Lot Number [id number] -Bleeding Controlled with Pressure -Treatment Response Procedure Tolerated Well [See Physician Procedure note for Specifics] Pain Scale: 0-10 Numeric [Pain] -Is Patient Pain Free? Yes Musculoskeletal: No Tenderness to Palpation of Joints or Extremities, Muscle Wasting Neurological: - - Lack of epicritic sensation light touch noted Psych/Mental Status: Normal Affect, Appropriate Debridement Note Post-Debridement Measurements/Treatment WC - Nurse 2 - General Ulcer CM Notes Start: 02/18/18 13:47 Freq: Status: Active Protocol: Activity Type Activity Date Activity User E-Sign Co-Sign Detail Recorded Client Recorded Date Recorded By Document 02/18/18 14:23 [id number] 02/18/18 14:30 Document 02/25/18 13:39 [id number] 02/25/18 13:51 Document 03/04/18 12:13 [id number] 03/04/18 12:18 02/18/18 02/25/18 03/04/18 14:23 13:39 12:13 Wound Center Nurse 2 #1 R midfoot plantar -Time 14:27 13:50 12:13 -Correct Patient Yes Yes Yes -Correct Side, Site, Position Yes Yes Yes -Correct Procedure Yes Yes Yes -Procedure Performed Yes Yes Yes -Type of Procedure Debridement Debridement Debridement -Clinical Debridement Subcutaneous Subcutaneous Subcutaneous -Post Debridement Size (cm) - Length 1.9 1.9 1.5 -Post Debridement Size (cm) - Width 3.9 3.9 3.2 -Post Debridement Size (cm) - Depth 0.2 0.2 0.2 -Total Square Cm 7.41 7.41 4.80 -Wound/Ulcer Outcome Not Healed Not Healed Not Healed -Ulcer Cleansing Rinsed/ Rinsed/ Rinsed/ Irrigated with Irrigated with Irrigated with Saline Saline Saline -Foul Odor after Cleansing No No No -Bioengineered Tissue Yes No Yes -Type of bioengineered Tissue EPIFIX EPIFIX -Expiration Date 11/14/22 11/14/22 -Product Lot Number [id number] -Percent Used 100 100 -Saline Lot Number [id number] -Topical Lidocaine (%) 4 -Bleeding Controlled with Pressure Pressure Pressure -Treatment Response Procedure Procedure Procedure Tolerated Well Tolerated Well Tolerated Well Pain Scale: 0-10 Numeric Is Patient Pain Free? Yes Yes Yes Wound debrided: plantar foot Laterality: Right Wound Grade/Stage: grade 1 Type of Debridement: Excisional debridement Anesthesia Used: 4% Lidocaine Solution Depth: in the subcutaneous layer Percentage of wound debrided: 100 Instrument Used: #15 blade Tissue Removed: fibrous, devitalized subcutaneous, biofilm, slough Severity: Fat Layer Exposed Amount of bleeding with debridement: Mild Bleeding Controlled with: Pressure Patient tolerated procedure well Assessment/Plan Assessment: Plantar james grade 1 foot ulcer, no infection. Charcot foot, stable and nonacute. Diabetes with neuropathy. vascular disease. venous insufficiency. Delayed healing. Malnutrition suspected. Equinus. Compliance compromise Plan: I reviewed and discussed his case today. Debridement was performed as noted in the clinical panel. He was advised to clean the site daily with Dial soap and water and to avoid soaking. Advanced wound care product, epi cord was applied according to standard protocol after the indications and anticipated management were discussed. This was secured in place with a wound veil and Steri-Strips. He was advised to keep this clean and dry and intact until follow-up next week. I would like to consider an additional total contact cast with advanced wound care product application next week if his maceration remains resolves and he defers application today. His updated labs were reviewed including: White blood cell count 5.5, creatinine 3.87, glucose 174, albumin 2.3, total protein 7.3. I also recommend nutritional supplementation optimize healing. I provided prescription for Cole and he was advised on proper use. A referral to nutrition services at [facility] was also recommended and a referral was provided. He relates he has a scheduled at a different hospital and I encouraged him to attend. I recommend updated noninvasive arterial and venous studies to evaluate for peripheral arterial disease and venous insufficiency, respectively. This result was reviewed today and he has calcified vessels. He also has incompetent veins at multiple sites to bilateral lower extremities and this is consistent with venous insufficiency. Due to his ongoing lack of healing and evaluation with various providers, I recommend a vascular surgery referral at this time for further assessment. To elevate limbs at rest and to avoid idle standing or sitting. He is further reassured no local signs of infection or further tissue necrosis is noted at his ulcer site. To return the wound healing center 1 week or call sooner if he has any questions or concerns. I answered all his questions today.
[2018-03-11 11:23] VITALS: BP 160/80; PULSE 83; RESP 16; TEMP 35.9
--- NOTE | 2018-03-19 11:33 | PN.PCM_ITS ---
(1) Ulcer of right foot with fat layer exposed Status: Chronic Code(s): L97.512 - Non-pressure chronic ulcer of other part of right foot with fat layer exposed (2) Charcot foot due to diabetes mellitus Status: Chronic Code(s): E11.610 - Type 2 diabetes mellitus with diabetic neuropathic arthropathy (3) Type 2 diabetes mellitus with diabetic polyneuropathy Status: Chronic Qualifiers: Code(s): E11.42 - Type 2 diabetes mellitus with diabetic polyneuropathy (4) Venous insufficiency Status: Suspected Code(s): I87.2 - Venous insufficiency (chronic) (peripheral) (5) Leg edema Status: Chronic Code(s): R60.0 - Localized edema (6) Malnutrition Status: Chronic Code(s): E46 - Unspecified protein-calorie malnutrition (7) Delayed wound healing Status: Chronic Code(s): T14.8XXD - Other injury of unspecified body region, subsequent encounter (8) Other specified peripheral vascular diseases Status: Suspected Code(s): I73.89 - Other specified peripheral vascular diseases (9) Maceration of periwound skin Status: Chronic Code(s): L98.8 - Other specified disorders of the skin and subcutaneous tissue Type of Wound Date of Service: 03/11/18 Chief Complaint: Right foot ulcer History of Wound: This 63-year-old male with diabetes and other comorbidities was seen in the wound healing center for right foot ulcer that has an onset of April 2017. He took a break from his total contact cast this last week and defers reapplication today. He denies fever, chill, nausea, vomiting, loss of appetite. He relates he does have an upcoming nutrition referral scheduled in an outside facility. Progress of Wound: Improving - Physical Exam Vital Signs Temp Pulse Resp BP 96.6 F L 83 16 160/80 H 03/11/18 11:23 03/11/18 11:23 03/11/18 11:23 03/11/18 11:23 General: Alert, Oriented x3, Cooperative Extremities: No cyanosis, Capillary Refill Less than 3 Seconds, No Calf Tenderness - Negative Laci and Yoder bilateral, Diminished Peripheral Pulses, Edema - Decreased, - - Rocker-bottom foot noted Skin: Ulcer/ Wound - No purulence, erythema, streaking, odor, or infection. Peripheral skin is atrophic and hairless. Musculoskeletal: No Tenderness to Palpation of Joints or Extremities, Muscle Wasting Neurological: - - Lack of epicritic sensation light touch bilateral lower e xtremity consistent with neuropathy Psych/Mental Status: Normal Affect, Appropriate Debridement Note Post-Debridement Measurements/Treatment WC - Nurse 2 - General Ulcer CM Notes Start: 02/18/18 13:47 Freq: Status: Active Protocol: Activity Type Activity Date Activity User E-Sign Co-Sign Detail Recorded Client Recorded Date Recorded By Document 02/18/18 14:23 [id number] 02/18/18 14:30 Document 02/25/18 13:39 [id number] 02/25/18 13:51 Document 03/04/18 12:13 [id number] 03/04/18 12:18 Document 03/11/18 11:38 [id number] 03/11/18 11:41 02/18/18 02/25/18 03/04/18 14:23 13:39 12:13 Wound Center Nurse 2 #1 R midfoot plantar -Time 14:27 13:50 12:13 -Correct Patient Yes Yes Yes -Correct Side, Site, Position Yes Yes Yes -Correct Procedure Yes Yes Yes -Procedure Performed Yes Yes Yes -Type of Procedure Debridement Debridement Debridement -Clinical Debridement Subcutaneous Subcutaneous Subcutaneous -Post Debridement Size (cm) - Length 1.9 1.9 1.5 -Post Debridement Size (cm) - Width 3.9 3.9 3.2 -Post Debridement Size (cm) - Depth 0.2 0.2 0.2 -Total Square Cm 7.41 7.41 4.80 -Wound/Ulcer Outcome Not Healed Not Healed Not Healed -Ulcer Cleansing Rinsed/ Rinsed/ Rinsed/ Irrigated with Irrigated with Irrigated with Saline Saline Saline -Foul Odor after Cleansing No No No -Bioengineered Tissue Yes No Yes -Type of bioengineered Tissue EPIFIX EPIFIX -Expiration Date 11/14/22 11/14/22 -Product Lot Number [id number] -Percent Used 100 100 -Saline Lot Number [id number] -Topical Lidocaine (%) 4 -Bleeding Controlled with Pressure Pressure Pressure -Other -Treatment Response Procedure Procedure Procedure Tolerated Well Tolerated Well Tolerated Well Pain Scale: 0-10 Numeric Is Patient Pain Free? Yes Yes Yes 03/11/18 11:38 Wound Center Nurse 2 #1 R midfoot plantar -Time 11:39 -Correct Patient Yes -Correct Side, Site, Position Yes -Correct Procedure Yes -Procedure Performed Yes -Type of Procedure -Clinical Debridement -Post Debridement Size (cm) - Length 1.4 -Post Debridement Size (cm) - Width 2.6 -Post Debridement Size (cm) - Depth 0.1 -Total Square Cm 3.64 -Wound/Ulcer Outcome Not Healed -Ulcer Cleansing Rinsed/ Irrigated with Saline -Foul Odor after Cleansing No -Bioengineered Tissue No -Type of bioengineered Tissue -Expiration Date -Product Lot Number -Percent Used -Saline Lot Number -Topical Lidocaine (%) -Bleeding Controlled with NA -Other epicord #3 intact -Treatment Response Procedure Tolerated Well Pain Scale: 0-10 Numeric Is Patient Pain Free? Yes Wound debrided: plantar foot Laterality: Right Wound Grade/Stage: grade 1 Type of Debridement: Excisional debridement Anesthesia Used: 4% Lidocaine Solution Depth: in the subcutaneous layer Percentage of wound debrided: 100 Instrument Used: #15 blade Tissue Removed: fibrous, devitalized subcutaneous, biofilm, slough Severity: Fat Layer Exposed Amount of bleeding with debridement: Mild Bleeding Controlled with: Pressure Patient tolerated procedure well Assessment/Plan Assessment: Plantar james grade 1 foot ulcer, no infection. Charcot foot, stable and nonacute. Diabetes with neuropathy. vascular disease. venous insufficiency. Delayed healing. Malnutrition suspected. Equinus. Compliance compromise Plan: I reviewed and discussed his case today. Debridement was performed as noted in the clinical panel. He was advised to clean the site daily with Dial soap and water and to avoid soaking. Advanced wound care product, epi cord was applied according to standard protocol after the indications and anticipated management were discussed. This was secured in place with a wound veil and Steri-Strips. He was advised to keep this clean and dry and intact until follow-up next week. I would like to consider an additional total contact cast with advanced wound care product application next week if his maceration remains resolves and he defers application today. His updated labs were reviewed including: White blood cell count 5.5, creatinine 3.87, glucose 174, albumin 2.3, total protein 7.3. I also recommend nutritional supplementation optimize healing. I provided prescription for Cole and he was advised on proper use. A referral to nutrition services at [facility] was also recommended and a referral was provided. He relates he has a scheduled at a different hospital and I encouraged him to attend. I recommend updated noninvasive arterial and venous studies to evaluate for peripheral arterial disease and venous insufficiency, respectively. This result was reviewed today and he has calcified vessels. He also has incompetent veins at multiple sites to bilateral lower extremities and this is consistent with venous insufficiency. Due to his ongoing lack of healing and evaluation with various providers, I recommend a vascular surgery referral at this time for further assessment. To elevate limbs at rest and to avoid idle standing or sitting. He is further reassured no local signs of infection or further tissue necrosis is noted at his ulcer site. To return the wound healing center 1 week or call sooner if he has any questions or concerns. I answered all his questions today.
== END 2018-03-15 23:59 ==
LOC: WC 11:15
PROVIDERS: Visit Provider Podiatrist
DX: E11.622 Type 2 diabetes mellitus with other skin ulcer (principal); L97.512 Non-pressure chronic ulcer of other part of right foot with fat layer exposed; R60.0 Localized edema; E11.610 Type 2 diabetes mellitus with diabetic neuropathic arthropathy; E55.9 Vitamin D deficiency, unspecified; E11.42 Type 2 diabetes mellitus with diabetic polyneuropathy; E11.51 Type 2 diabetes mellitus with diabetic peripheral angiopathy without gangrene
CPT/HCPCS: 11042; 15275; 29445; 93923; 93970; 99213; Q4131; G0463

== ENCOUNTER 2018-04-15 13:00 | Outpatient (RCR) | payer MEDICAID, SELFPAY ==
[2018-03-16 01:25] VITALS: BP 160/80; PULSE 83; RESP 16; TEMP 35.9
[2018-03-17 12:50] VITALS: BP 156/69; PULSE 69; RESP 18; TEMP 36
--- NOTE | 2018-03-17 14:01 | PCM.WC.PN ---
(1) Ulcer of right foot with fat layer exposed Status: Chronic Current Visit: Yes Code(s): L97.512 - Non-pressure chronic ulcer of other part of right foot with fat layer exposed (2) Charcot foot due to diabetes mellitus Status: Chronic Current Visit: Yes Code(s): E11.610 - Type 2 diabetes mellitus with diabetic neuropathic arthropathy (3) Type 2 diabetes mellitus with diabetic polyneuropathy Status: Chronic Current Visit: Yes Qualifiers: Code(s): E11.42 - Type 2 diabetes mellitus with diabetic polyneuropathy (4) Leg edema Status: Chronic Current Visit: Yes Code(s): R60.0 - Localized edema (5) Malnutrition Status: Chronic Current Visit: Yes Code(s): E46 - Unspecified protein-calorie malnutrition (6) Delayed wound healing Status: Chronic Current Visit: Yes Code(s): T14.8XXD - Other injury of unspecified body region, subsequent encounter Type of Wound Date of Service: 03/17/18 Chief Complaint: Right foot ulcer History of Wound: This 63-year-old male with diabetes and other comorbidities was seen in the wound healing center for right foot ulcer that has an onset of April 2017. He wore a total contact cast last week. He denies fever, nausea, vomiting, loss of appetite. He had some family changes past week and thinks he may need to follow-up on a different day. Progress of Wound: Improving - Physical Exam Vital Signs Temp Pulse Resp BP 96.8 F L 69 18 156/69 H 03/17/18 12:50 03/17/18 12:50 03/17/18 12:50 03/17/18 12:50 General: Alert, Oriented x3, Cooperative Extremities: No cyanosis, Capillary Refill Less than 3 Seconds, No Calf Tenderness - Negative Laci and Yoder bilateral, Diminished Peripheral Pulses, Edema, - - Right rocker-bottom foot consistent with stable non-acute Charcot Skin: Ulcer/ Wound - No purulence, no erythema, streaking, no odor, no acute infection. The wound appears to be more superficial decrease in size. The peripheral skin is atrophic and hairless. Wound Measurements and Assessment WC - Nurse 1 - General Ulcer Measurement Start: 03/17/18 12:50 Freq: Status: Active Protocol: Activity Type Activity Date Activity User E-Sign Co-Sign Detail Recorded Client Recorded Date Recorded By Document 03/17/18 12:50 DL [id number] 03/17/18 13:05 DL 03/17/18 12:50 Wound Center Nurse 1 [Ulcer Assessment] #1 R midfoot plantar -Current Size (cm) - Length 1.2 -Current Size (cm) - Width 2.5 -Current Size (cm) - Depth 0.2 -Total Square Cm 3.00 -Exudate Amt Medium (34-66%) -Exudate Type Serosanguineous -Wound Margin Thickened -Granulation Amt Medium (34-66%) -Granulation Quality [place] -Necrosis Amt Medium (34-66%) -Necrotic Tissue Type Adherent Slough -Structure Exposed N/A -Texture (Anna-wound Skin Appearance) Scarring -Moisture (Anna-wound Skin Appearance Maceration ) -Color (Anna-wound Skin Appearance) Hemosiderin Staining -Temperature (Anna-wound Skin No Abnormality Appearance) (Pt Warm) -Ulcer Cleansing Wound Cleanser -Foul Odor after Cleansing No -Anesthetic Used 4% Lidocaine Solution [Edema Assessment] -Right Calf (cm) 47.5 -Right Ankle (cm) 24.6 WC - Nurse 2 - General Ulcer CM Notes Start: 03/17/18 12:50 Freq: Status: Active Protocol: Activity Type Activity Date Activity User E-Sign Co-Sign Detail Recorded Client Recorded Date Recorded By Document 03/17/18 13:20 TM [id number] 03/17/18 13:29 TM 03/17/18 13:20 Wound Center Nurse 2 [Procedure/Treatment] #1 R midfoot plantar -Time 13:28 -Correct Patient Yes -Correct Side, Site, Position Yes -Correct Procedure Yes -Procedure Performed Yes -Type of Procedure Debridement -Clinical Debridement Subcutaneous -Post Debridement Size (cm) - Length 1.3 -Post Debridement Size (cm) - Width 2.6 -Post Debridement Size (cm) - Depth 0.1 -Total Square Cm 3.38 -Wound/Ulcer Outcome Not Healed -Ulcer Cleansing Rinsed/ Irrigated with Saline -Foul Odor after Cleansing No -Bioengineered Tissue Yes -Type of bioengineered Tissue EPICORD -Expiration Date 11/14/22 -Product Lot Number [id number] -Percent Used 100 -Saline Lot Number [id number] -Topical Lidocaine (%) 4 -Bleeding Controlled with Pressure -Treatment Response Procedure Tolerated Well [See Physician Procedure note for Specifics] Pain Scale: 0-10 Numeric [Pain] -Is Patient Pain Free? Yes Musculoskeletal: No Tenderness to Palpation of Joints or Extremities, Muscle Wasting Neurological: - - Lack of epicritic sensation light touch Psych/Mental Status: Normal Affect, Appropriate Debridement Note Post-Debridement Measurements/Treatment WC - Nurse 2 - General Ulcer CM Notes Start: 03/17/18 12:50 Freq: Status: Active Protocol: Activity Type Activity Date Activity User E-Sign Co-Sign Detail Recorded Client Recorded Date Recorded By Document 03/17/18 13:20 TM [id number] 03/17/18 13:29 TM 03/17/18 13:20 Wound Center Nurse 2 #1 R midfoot plantar -Time 13:28 -Correct Patient Yes -Correct Side, Site, Position Yes -Correct Procedure Yes -Procedure Performed Yes -Type of Procedure Debridement -Clinical Debridement Subcutaneous -Post Debridement Size (cm) - Length 1.3 -Post Debridement Size (cm) - Width 2.6 -Post Debridement Size (cm) - Depth 0.1 -Total Square Cm 3.38 -Wound/Ulcer Outcome Not Healed -Ulcer Cleansing Rinsed/ Irrigated with Saline -Foul Odor after Cleansing No -Bioengineered Tissue Yes -Type of bioengineered Tissue EPICORD -Expiration Date 11/14/22 -Product Lot Number [id number] -Percent Used 100 -Saline Lot Number [id number] -Topical Lidocaine (%) 4 -Bleeding Controlled with Pressure -Treatment Response Procedure Tolerated Well Pain Scale: 0-10 Numeric Is Patient Pain Free? Yes Wound debrided: plantar foot Laterality: Right Wound Grade/Stage: grade 1 Type of Debridement: Excisional debridement Anesthesia Used: 4% Lidocaine Solution Depth: in the subcutaneous layer Percentage of wound debrided: 100 Instrument Used: #15 blade Tissue Removed: fibrous, devitalized subcutaneous, biofilm, slough Severity: Fat Layer Exposed Amount of bleeding with debridement: Mild Bleeding Controlled with: Pressure Patient tolerated procedure well Assessment/Plan Active Problems Ulcer of right foot with fat layer exposed (Chronic) Charcot foot due to diabetes mellitus (Chronic) Type 2 diabetes mellitus with diabetic polyneuropathy (Chronic) Leg edema (Chronic) Malnutrition (Chronic) Delayed wound healing (Chronic) Assessment: Plantar james grade 1 foot ulcer, no infection. Charcot foot, stable and nonacute. Diabetes with neuropathy. vascular disease. venous insufficiency. Delayed healing. Malnutrition suspected. Equinus. Compliance compromise Plan: I reviewed and discussed his case today. Debridement was performed as noted in the clinical panel. He was advised to clean the site daily with Dial soap and water and to avoid soaking. Advanced wound care product, epi cord was applied according to standard protocol after the indications and anticipated management were discussed. This was secured in place with a wound veil and Steri-Strips. He was advised to keep this clean and dry and intact until follow-up next week. I would like to consider an additional total contact cast with advanced wound care product application next week if his maceration remains resolves and he defers application today. His updated labs were reviewed including: White blood cell count 5.5, creatinine 3.87, glucose 174, albumin 2.3, total protein 7.3. I also recommend nutritional supplementation optimize healing. I provided prescription for Cole and he was advised on proper use. A referral to nutrition services at [facility] was also recommended and a referral was provided previously. If he cannot follow-up next week with me I recommend he follows up with a different wound care center provider to continue with weekly serial debridements, application of advanced wound care product unless this current epi cord is still incorporating, and application of total contact cast. I recommend updated noninvasive arterial and venous studies to evaluate for peripheral arterial disease and venous insufficiency, respectively. This result was reviewed today and he has calcified vessels. He also has incompetent veins at multiple sites to bilateral lower extremities and this is consistent with venous insufficiency. Due to his ongoing lack of healing and evaluation with various providers, I recommend a vascular surgery referral at this time for further assessment. To elevate limbs at rest and to avoid idle standing or sitting. He is further reassured no local signs of infection or further tissue necrosis is noted at his ulcer site. To return the wound healing center 1 week or call sooner if he has any questions or concerns. I answered all his questions today.
--- NOTE | 2018-03-17 14:05 | PN.PCM_ITS ---
(1) Ulcer of right foot with fat layer exposed Status: Chronic Current Visit: Yes Code(s): L97.512 - Non-pressure chronic ulcer of other part of right foot with fat layer exposed (2) Charcot foot due to diabetes mellitus Status: Chronic Current Visit: Yes Code(s): E11.610 - Type 2 diabetes mellitus with diabetic neuropathic arthropathy (3) Type 2 diabetes mellitus with diabetic polyneuropathy Status: Chronic Current Visit: Yes Qualifiers: Code(s): E11.42 - Type 2 diabetes mellitus with diabetic polyneuropathy (4) Leg edema Status: Chronic Current Visit: Yes Code(s): R60.0 - Localized edema (5) Malnutrition Status: Chronic Current Visit: Yes Code(s): E46 - Unspecified protein- calorie malnutrition (6) Delayed wound healing Status: Chronic Current Visit: Yes Code(s): T14.8XXD - Other injury of unspecified body region, subsequent encounter Type of Wound Date of Service: 03/17/18 Chief Complaint: Right foot ulcer History of Wound: This 63-year-old male with diabetes and other comorbidities was seen in the wound healing center for right foot ulcer that has an onset of April 2017. He wore a total contact cast last week. He denies fever, nausea, vomiting, loss of appetite. He had some family changes past week and thinks he may need to follow-up on a different day. Progress of Wound: Improving - Physical Exam Vital Signs Temp Pulse Resp BP 96.8 F L 69 18 156/69 H 03/17/18 12:50 03/17/18 12:50 03/17/18 12:50 03/17/18 12:50 General: Alert, Oriented x3, Cooperative Extremities: No cyanosis, Capillary Refill Less than 3 Seconds, No Calf Tenderness - Negative Laci and Yoder bilateral, Diminished Peripheral Pulses, Edema, - - Right rocker-bottom foot consistent with stable non-acute Charcot Skin: Ulcer/ Wound - No purulence, no erythema, streaking, no odor, no acute infection. The wound appears to be more superficial decrease in size. The peripheral skin is atrophic and hairless. Wound Measurements and Assessment WC - Nurse 1 - General Ulcer Measurement Start: 03/17/18 12:50 Freq: Status: Active Protocol: Activity Type Activity Date Activity User E-Sign Co-Sign Detail Recorded Client Recorded Date Recorded By Document 03/17/18 12:50 DL [id number] 03/17/18 13:05 DL 03/17/18 12:50 Wound Center Nurse 1 [Ulcer Assessment] #1 R midfoot plantar -Current Size (cm) - Length 1.2 -Current Size (cm) - Width 2.5 -Current Size (cm) - Depth 0.2 -Total Square Cm 3.00 -Exudate Amt Medium (34-66%) -Exudate Type Serosanguineous -Wound Margin Thickened -Granulation Amt Medium (34-66%) -Granulation Quality [place] -Necrosis Amt Medium (34-66%) -Necrotic Tissue Type Adherent Slough -Structure Exposed N/A -Texture (Anna-wound Skin Appearance) Scarring -Moisture (Anna-wound Skin Appearance Maceration ) -Color (Anna-wound Skin Appearance) Hemosiderin Staining -Temperature (Anna-wound Skin No Abnormality Appearance) (Pt Warm) -Ulcer Cleansing Wound Cleanser -Foul Odor after Cleansing No -Anesthetic Used 4% Lidocaine Solution [Edema Assessment] -Right Calf (cm) 47.5 -Right Ankle (cm) 24.6 WC - Nurse 2 - General Ulcer CM Notes Start: 03/17/18 12:50 Freq: Status: Active Protocol: Activity Type Activity Date Activity User E-Sign Co-Sign Detail Recorded Client Recorded Date Recorded By Document 03/17/18 13:20 TM [id number] 03/17/18 13:29 TM 03/17/18 13:20 Wound Center Nurse 2 [Procedure/Treatment] #1 R midfoot plantar -Time 13:28 -Correct Patient Yes -Correct Side, Site, Position Yes -Correct Procedure Yes -Procedure Performed Yes -Type of Procedure Debridement -Clinical Debridement Subcutaneous -Post Debridement Size (cm) - Length 1.3 -Post Debridement Size (cm) - Width 2.6 -Post Debridement Size (cm) - Depth 0.1 -Total Square Cm 3.38 -Wound/Ulcer Outcome Not Healed -Ulcer Cleansing Rinsed/ Irrigated with Saline -Foul Odor after Cleansing No -Bioengineered Tissue Yes -Type of bioengineered Tissue EPICORD -Expiration Date 11/14/22 -Product Lot Number [id number] -Percent Used 100 -Saline Lot Number [id number] -Topical Lidocaine (%) 4 -Bleeding Controlled with Pressure -Treatment Response Procedure Tolerated Well [See Physician Procedure note for Specifics] Pain Scale: 0-10 Numeric [Pain] -Is Patient Pain Free? Yes Musculoskeletal: No Tenderness to Palpation of Joints or Extremities, Muscle Wasting Neurological: - - Lack of epicritic sensation light touch Psych/Mental Status: Normal Affect, Appropriate Debridement Note Post-Debridement Measurements/Treatment WC - Nurse 2 - General Ulcer CM Notes Start: 03/17/18 12:50 Freq: Status: Active Protocol: Activity Type Activity Date Activity User E-Sign Co-Sign Detail Recorded Client Recorded Date Recorded By Document 03/17/18 13:20 TM [id number] 03/17/18 13:29 TM 03/17/18 13:20 Wound Center Nurse 2 #1 R midfoot plantar -Time 13:28 -Correct Patient Yes -Correct Side, Site, Position Yes -Correct Procedure Yes -Procedure Performed Yes -Type of Procedure Debridement -Clinical Debridement Subcutaneous -Post Debridement Size (cm) - Length 1.3 -Post Debridement Size (cm) - Width 2.6 -Post Debridement Size (cm) - Depth 0.1 -Total Square Cm 3.38 -Wound/Ulcer Outcome Not Healed -Ulcer Cleansing Rinsed/ Irrigated with Saline -Foul Odor after Cleansing No -Bioengineered Tissue Yes -Type of bioengineered Tissue EPICORD -Expiration Date 11/14/22 -Product Lot Number [id number] -Percent Used 100 -Saline Lot Number [id number] -Topical Lidocaine (%) 4 -Bleeding Controlled with Pressure -Treatment Response Procedure Tolerated Well Pain Scale: 0-10 Numeric Is Patient Pain Free? Yes Wound debrided: plantar foot Laterality: Right Wound Grade/Stage: grade 1 Type of Debridement: Excisional debridement Anesthesia Used: 4% Lidocaine Solution Depth: in the subcutaneous layer Percentage of wound debrided: 100 Instrument Used: #15 blade Tissue Removed: fibrous, devitalized subcutaneous, biofilm, slough Severity: Fat Layer Exposed Amount of bleeding with debridement: Mild Bleeding Controlled with: Pressure Patient tolerated procedure well Assessment/Plan Active Problems Ulcer of right foot with fat layer exposed (Chronic) Charcot foot due to diabetes mellitus (Chronic) Type 2 diabetes mellitus with diabetic polyneuropathy (Chronic) Leg edema (Chronic) Malnutrition (Chronic) Delayed wound healing (Chronic) Assessment: Plantar james grade 1 foot ulcer, no infection. Charcot foot, stable and nonacute. Diabetes with neuropathy. vascular disease. venous insufficiency. Delayed healing. Malnutrition suspected. Equinus. Compliance compromise Plan: I reviewed and discussed his case today. Debridement was performed as noted in the clinical panel. He was advised to clean the site daily with Dial soap and water and to avoid soaking. Advanced wound care product, epi cord was applied according to standard protocol after the indications and anticipated management were discussed. This was secured in place with a wound veil and Steri-Strips. He was advised to keep this clean and dry and intact until follow-up next week. I would like to consider an additional total contact cast with advanced wound care product application next week if his maceration remains resolves and he defers application today. His updated labs were reviewed including: White blood cell count 5.5, creatinine 3.87, glucose 174, albumin 2.3, total protein 7.3. I also recommend nutritional supplementation optimize healing. I provided prescription for Cole and he was advised on proper use. A referral to nutrition services at [facility] was also recommended and a referral was provided previously. If he cannot follow-up next week with me I recommend he follows up with a different wound care center provider to continue with weekly serial debridements, application of advanced wound care product unless this current epi cord is still incorporating, and application of total contact cast. I recommend updated noninvasive arterial and venous studies to evaluate for peripheral arterial disease and venous insufficiency, respectively. This result was reviewed today and he has calcified vessels. He also has incompetent veins at multiple sites to bilateral lower extremities and this is consistent with venous insufficiency. Due to his ongoing lack of healing and evaluation with various providers, I recommend a vascular surgery referral at this time for further assessment. To elevate limbs at rest and to avoid idle standing or sitting. He is further reassured no local signs of infection or further tissue necrosis is noted at his ulcer site. To return the wound healing center 1 week or call sooner if he has any questions or concerns. I answered all his questions today.
[2018-03-25 11:49] VITALS: BP 156/69; PULSE 61; RESP 22; TEMP 35.5
--- NOTE | 2018-03-25 12:26 | PCM.WC.PN ---
(1) Ulcer of right foot with fat layer exposed Status: Chronic Current Visit: Yes Code(s): L97.512 - Non-pressure chronic ulcer of other part of right foot with fat layer exposed (2) Charcot foot due to diabetes mellitus Status: Chronic Current Visit: Yes Code(s): E11.610 - Type 2 diabetes mellitus with diabetic neuropathic arthropathy (3) Type 2 diabetes mellitus with diabetic polyneuropathy Status: Chronic Current Visit: Yes Qualifiers: Code(s): E11.42 - Type 2 diabetes mellitus with diabetic polyneuropathy (4) Leg edema Status: Chronic Current Visit: Yes Code(s): R60.0 - Localized edema (5) Malnutrition Status: Chronic Current Visit: Yes Code(s): E46 - Unspecified protein-calorie malnutrition (6) Delayed wound healing Status: Chronic Current Visit: Yes Code(s): T14.8XXD - Other injury of unspecified body region, subsequent encounter Type of Wound Date of Service: 03/25/18 Chief Complaint: Right foot ulcer History of Wound: This 63-year-old male with diabetes and other comorbidities was seen in the wound healing center for right foot ulcer that has an onset of April 2017. He denies fever, nausea, vomiting, loss of appetite. He had trouble getting here due to his transportation counseling at the last moment. He relates he has very low blood sugar at this time. He is amenable to have the total contact cast applied today and brought the total contact cast shoe as advised. 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 He did not schedule for follow-up with vascular surgery yet as I had previously advised. Progress of Wound: Improving - Physical Exam Vital Signs Temp Pulse Resp BP 95.9 F L 61 22 H 156/69 H 03/25/18 11:49 03/25/18 11:49 03/25/18 11:49 03/25/18 11:49 General: Alert, Oriented x3, Cooperative Extremities: No edema, Capillary Refill Less than 3 Seconds, No Calf Tenderness - Negative Laci and Yoder sign bilateral, Diminished Peripheral Pulses, Edema - Bilateral lower extremities Skin: Ulcer/ Wound - No purulence, no erythema, streaking, no odor, no infection. Significant peripheral epithelialization is noted and there is no deep tissue exposed. The peripheral skin is hairless and atrophic. Wound Measurements and Assessment WC - Nurse 1 - General Ulcer Measurement Start: 03/17/18 12:50 Freq: Status: Active Protocol: Activity Type Activity Date Activity User E-Sign Co-Sign Detail Recorded Client Recorded Date Recorded By Document 03/25/18 11:49 DL [id number] 03/25/18 11:55 DL 03/25/18 11:49 Wound Center Nurse 1 [Ulcer Assessment] #1 R midfoot plantar -Current Size (cm) - Length 0.8 -Current Size (cm) - Width 1.9 -Current Size (cm) - Depth 0.1 -Total Square Cm 1.52 -Photo Taken No -Exudate Amt Small (1-33%) -Exudate Type Serosanguineous -Wound Margin Distinct, Outline Attached -Granulation Amt Large (67-100%) -Granulation Quality Red -Necrosis Amt None Present (0 %) -Structure Exposed N/A -Texture (Anna-wound Skin Appearance) Localized Edema Scarring -Moisture (Anna-wound Skin Appearance Maceration ) -Color (Anna-wound Skin Appearance) Hemosiderin Staining -Temperature (Anna-wound Skin No Abnormality Appearance) (Pt Warm) -Ulcer Cleansing Wound Cleanser -Foul Odor after Cleansing No -Anesthetic Used 4% Lidocaine Solution - Nurse 2 - General Ulcer CM Notes Start: 03/17/18 12:50 Freq: Status: Active Protocol: Activity Type Activity Date Activity User E-Sign Co-Sign Detail Recorded Client Recorded Date Recorded By Document 03/25/18 12:14 DV [id number] 03/25/18 12:19 DV 03/25/18 12:14 Wound Center Nurse 2 [Procedure/Treatment] -Time 12:15 -Correct Patient Yes -Correct Side, Site, Position Yes -Correct Procedure Yes -Procedure Performed Yes -Type of Procedure Debridement -Clinical Debridement Subcutaneous -Post Debridement Size (cm) - Length 1.0 -Post Debridement Size (cm) - Width 1.9 -Post Debridement Size (cm) - Depth 0.1 -Total Square Cm 1.90 -Wound/Ulcer Outcome Not Healed -Ulcer Cleansing Rinsed/ Irrigated with Saline -Foul Odor after Cleansing No -Bioengineered Tissue Yes -Type of bioengineered Tissue EPIFIX -Expiration Date 11/14/22 -Product Lot Number [id number] -Percent Used 100 -Saline Lot Number [id number] -Topical Lidocaine (%) 4 -Bleeding Controlled with Pressure -Treatment Response Procedure Tolerated Well [See Physician Procedure note for Specifics] Pain Scale: 0-10 Numeric [Pain] -Is Patient Pain Free? Yes Musculoskeletal: No Tenderness to Palpation of Joints or Extremities, Muscle Wasting, - - Charcot rocker-bottom foot noted. This is not acute. There is no increased warmth, redness, or laxity Neurological: - - Lack of epicritic sensation light touch right lower extremity Psych/Mental Status: Normal Affect, Appropriate Debridement Note Post-Debridement Measurements/Treatment WC - Nurse 2 - General Ulcer CM Notes Start: 03/17/18 12:50 Freq: Status: Active Protocol: Activity Type Activity Date Activity User E-Sign Co-Sign Detail Recorded Client Recorded Date Recorded By Document 03/17/18 13:20 TM [id number] 03/17/18 13:29 TM Document 03/25/18 12:14 DV [id number] 03/25/18 12:19 DV 03/17/18 03/25/18 13:20 12:14 Wound Center Nurse 2 #1 R midfoot plantar -Time 13:28 12:15 -Correct Patient Yes Yes -Correct Side, Site, Position Yes Yes -Correct Procedure Yes Yes -Procedure Performed Yes Yes -Type of Procedure Debridement Debridement -Clinical Debridement Subcutaneous Subcutaneous -Post Debridement Size (cm) - Length 1.3 1.0 -Post Debridement Size (cm) - Width 2.6 1.9 -Post Debridement Size (cm) - Depth 0.1 0.1 -Total Square Cm 3.38 1.90 -Wound/Ulcer Outcome Not Healed Not Healed -Ulcer Cleansing Rinsed/ Rinsed/ Irrigated with Irrigated with Saline Saline -Foul Odor after Cleansing No No -Bioengineered Tissue Yes Yes -Type of bioengineered Tissue EPICORD EPIFIX -Expiration Date 11/14/22 11/14/22 -Product Lot Number [id number] -Percent Used 100 100 -Saline Lot Number [id number] -Topical Lidocaine (%) 4 4 -Bleeding Controlled with Pressure Pressure -Treatment Response Procedure Procedure Tolerated Well Tolerated Well Pain Scale: 0-10 Numeric Is Patient Pain Free? Yes Yes Wound debrided: plantar foot Laterality: Right Wound Grade/Stage: grade 1 Type of Debridement: Excisional debridement Anesthesia Used: 4% Lidocaine Solution Depth: in the subcutaneous layer Percentage of wound debrided: 100 Instrument Used: #15 blade Tissue Removed: fibrous, devitalized subcutaneous, biofilm, slough Severity: Fat Layer Exposed Amount of bleeding with debridement: Mild Bleeding Controlled with: Pressure Patient tolerated procedure well Assessment/Plan Active Problems Ulcer of right foot with fat layer exposed (Chronic) Charcot foot due to diabetes mellitus (Chronic) Type 2 diabetes mellitus with diabetic polyneuropathy (Chronic) Leg edema (Chronic) Malnutrition (Chronic) Delayed wound healing (Chronic) Assessment: Plantar james grade 1 foot ulcer, no infection. Charcot foot, stable and nonacute. Diabetes with neuropathy. vascular disease. venous insufficiency. Delayed healing. Malnutrition suspected. Equinus. Compliance compromise Plan: I reviewed and discussed his case today. Debridement was performed as noted in the clinical panel. He was advised to clean the site daily with Dial soap and water and to avoid soaking. Advanced wound care product, epifix was applied according to standard protocol after the indications and anticipated management were discussed. This was secured in place with a wound veil and Steri-Strips. He was advised to keep this clean and dry and intact until follow-up next week. A secondary dressing was applied. A well-padded total contact cast was applied with the lower extremity in a neutral position. This was permitted to drive prior to being discharged today. His updated labs were reviewed including: White blood cell count 5.5, creatinine 3.87, glucose 174, albumin 2.3, total protein 7.3. I also recommend nutritional supplementation optimize healing. I provided prescription for Cole and he was advised on proper use. A referral to nutrition services at [facility] was also recommended and a referral was provided previously. I recommend updated noninvasive arterial and venous studies to evaluate for peripheral arterial disease and venous insufficiency, respectively. This result was reviewed previously and he has calcified vessels. He also has incompetent veins at multiple sites to bilateral lower extremities and this is consistent with venous insufficiency. Due to his ongoing lack of healing and evaluation with various providers, I recommend a vascular surgery referral at this time for further assessment. He was reminded to schedule this. to elevate limbs at rest and to avoid idle standing or sitting. He is further reassured no local signs of infection or further tissue necrosis is noted at his ulcer site. His blood sugar was evaluated today due to his concern of hypoglycemia and it was 73 mg/dL. He was given Glucerna and other snacks and he then became asymptomatic. He will work on confirming better transportation for his next follow-up visit. To return the wound healing center 1 week or call sooner if he has any questions or concerns. I answered all his questions today.
[2018-03-25 12:40] LABS: Bedside Glucose 73 mg/dL (70-110)
[2018-04-01 11:29] VITALS: BP 160/68; PULSE 62; RESP 18; TEMP 36.3
--- NOTE | 2018-04-01 13:06 | PN.PCM_ITS ---
(1) Ulcer of right foot with fat layer exposed Status: Chronic Current Visit: Yes Code(s): L97.512 - Non-pressure chronic ulcer of other part of right foot with fat layer exposed (2) Charcot foot due to diabetes mellitus Status: Chronic Current Visit: Yes Code(s): E11.610 - Type 2 diabetes mellitus with diabetic neuropathic arthropathy (3) Type 2 diabetes mellitus with diabetic polyneuropathy Status: Chronic Current Visit: Yes Qualifiers: Code(s): E11.42 - Type 2 diabetes mellitus with diabetic polyneuropathy (4) Leg edema Status: Chronic Current Visit: Yes Code(s): R60.0 - Localized edema (5) Malnutrition Status: Chronic Current Visit: Yes Code(s): E46 - Unspecified protein- calorie malnutrition (6) Delayed wound healing Status: Chronic Current Visit: Yes Code(s): T14.8XXD - Other injury of unspecified body region, subsequent encounter Type of Wound Date of Service: 04/01/18 Chief Complaint: Right foot ulcer History of Wound: This 63-year-old male with diabetes and other comorbidities was seen in the wound healing center for right foot ulcer that has an onset of April 2017. He denies fever, nausea, vomiting, loss of appetite. He had trouble getting here due to his transportation counseling at the last moment. He relates he has very low blood sugar at this time. He is amenable to have the total contact cast applied today. He does have a follow-up appointment scheduled already with his primary care physician, machinist mate, and spanish translator. He has a vascular surgery appointment scheduled for 04/15/2018. Progress of Wound: Improving - Physical Exam Vital Signs Temp Pulse Resp BP 97.3 F L 62 18 160/68 H 04/01/18 11:29 04/01/18 11:29 04/01/18 11:29 04/01/18 11:29 General: Alert, Oriented x3, Cooperative Extremities: No cyanosis, Capillary Refill Less than 3 Seconds, No Calf Tenderness - Negative Laci and Yoder sign, Diminished Peripheral Pulses, Edema - Bilateral lower extremities, - - Rocker-bottom right foot stable without laxity or acute Charcot evidence Skin: Ulcer/ Wound - No purulence, erythema, streaking, odor, or infection. No necrosis or deep tissue exposed. Peripheral skin is hairless and atrophic Wound Measurements and Assessment WC - Nurse 1 - General Ulcer Measurement Start: 03/17/18 12:50 Freq: Status: Active Protocol: Activity Type Activity Date Activity User E-Sign Co-Sign Detail Recorded Client Recorded Date Recorded By Document 04/01/18 11:29 [facility] [id number] 04/01/18 11:44 [facility] 04/01/18 11:29 Wound Center Nurse 1 [Ulcer Assessment] #1 R midfoot plantar -Combined with other wound No -Current Size (cm) - Length 0.4 -Current Size (cm) - Width 1.5 -Current Size (cm) - Depth 0.1 -Total Square Cm 0.60 -Photo Taken No -Epithelialization Medium 34-66% -Tunneling No -Undermining/Tunneling No -Exudate Amt Small (1-33%) -Exudate Type Serous -Wound Margin Distinct, Outline Attached -Granulation Amt Large (67-100%) -Granulation Quality [place] -Slough/Fibrin No -Necrosis Amt None Present (0 %) -Texture (Anna-wound Skin Appearance) Callus Scarring -Moisture (Anna-wound Skin Appearance Maceration ) Dry/Scaly -Color (Anna-wound Skin Appearance) Palor -Temperature (Anna-wound Skin No Abnormality Appearance) (Pt Warm) -Tenderness on Palpation (Anna-wound No Skin Appearance) -Ulcer Cleansing Wound Cleanser -Foul Odor after Cleansing No -Anesthetic Used 4% Lidocaine Solution [Edema Assessment] -Lower Limb Edema Present Yes -Right Calf (cm) 44 -Right Ankle (cm) 24.5 Musculoskeletal: No Tenderness to Palpation of Joints or Extremities, Muscle Wasting Neurological: - - Lack of epicritic sensation light touch right lower extremity Psych/Mental Status: Normal Affect, Appropriate Debridement Note Post-Debridement Measurements/Treatment WC - Nurse 2 - General Ulcer CM Notes Start: 03/17/18 12:50 Freq: Status: Active Protocol: Activity Type Activity Date Activity User E-Sign Co-Sign Detail Recorded Client Recorded Date Recorded By Document 03/17/18 13:20 TM [id number] 03/17/18 13:29 TM Document 03/25/18 12:14 DV [id number] 03/25/18 12:19 DV 03/17/18 03/25/18 13:20 12:14 Wound Center Nurse 2 #1 R midfoot plantar -Time 13:28 12:15 -Correct Patient Yes Yes -Correct Side, Site, Position Yes Yes -Correct Procedure Yes Yes -Procedure Performed Yes Yes -Type of Procedure Debridement Debridement -Clinical Debridement Subcutaneous Subcutaneous -Post Debridement Size (cm) - Length 1.3 1.0 -Post Debridement Size (cm) - Width 2.6 1.9 -Post Debridement Size (cm) - Depth 0.1 0.1 -Total Square Cm 3.38 1.90 -Wound/Ulcer Outcome Not Healed Not Healed -Ulcer Cleansing Rinsed/ Rinsed/ Irrigated with Irrigated with Saline Saline -Foul Odor after Cleansing No No -Bioengineered Tissue Yes Yes -Type of bioengineered Tissue EPICORD EPIFIX -Expiration Date 11/14/22 11/14/22 -Product Lot Number [id number] -Percent Used 100 100 -Saline Lot Number [id number] -Topical Lidocaine (%) 4 4 -Bleeding Controlled with Pressure Pressure -Treatment Response Procedure Procedure Tolerated Well Tolerated Well Pain Scale: 0-10 Numeric Is Patient Pain Free? Yes Yes Wound debrided: plantar foot Laterality: Right - g Wound Grade/Stage: grade 1 Type of Debridement: Excisional debridement Anesthesia Used: 4% Lidocaine Solution Depth: in the subcutaneous layer Percentage of wound debrided: 100 Instrument Used: #15 blade Tissue Removed: fibrous, devitalized, biofilm, slough, eschar Severity: Fat Layer Exposed Amount of bleeding with debridement: Mild Bleeding Controlled with: Pressure Patient tolerated procedure well Assessment/Plan Active Problems Ulcer of right foot with fat layer exposed (Chronic) Charcot foot due to diabetes mellitus (Chronic) Type 2 diabetes mellitus with diabetic polyneuropathy (Chronic) Leg edema (Chronic) Malnutrition (Chronic) Delayed wound healing (Chronic) Assessment: Plantar james grade 1 foot ulcer, no infection. Charcot foot, stable and nonacute. Diabetes with neuropathy. vascular disease. venous insufficiency. Delayed healing. Malnutrition suspected. Equinus. Compliance compromise Plan: I reviewed and discussed his case today. Debridement was performed as noted in the clinical panel. He was advised to clean the site daily with Dial soap and water and to avoid soaking. Advanced wound care product, epifix was applied according to standard protocol after the indications and anticipated management were discussed. This was secured in place with a wound veil and Steri-Strips. He was advised to keep this clean and dry and intact until follow-up next week. A secondary dressing was applied. A well-padded total contact cast was applied with the lower extremity in a neutral position. This was permitted to drive prior to being discharged today. His updated labs were reviewed including: White blood cell count 5.5, creatinine 3.87, glucose 174, albumin 2.3, total protein 7.3. I also recommend nutritional supplementation optimize healing. I provided prescription for Cole and he was advised on proper use. A referral to nutrition services at [facility] was also recommended and a referral was provided previously. I recommend updated noninvasive arterial and venous studies to evaluate for peripheral arterial disease and venous insufficiency, respectively. This result was reviewed previously and he has calcified vessels. He also has incompetent veins at multiple sites to bilateral lower extremities and this is consistent with venous insufficiency. Due to his ongoing lack of healing and evaluation with various providers, I recommend a vascular surgery referral at this time for further assessment. He was encouraged to attend his appointment scheduled for 04/15/2018. To elevate limbs at rest and to avoid idle standing or sitting. He is further reassured no local signs of infection or further tissue necrosis is noted at his ulcer site. His blood sugar was evaluated today due to his concern of hypoglycemia and it was 73 mg/dL. He was given Glucerna and other snacks and he then became asymptomatic. He will work on confirming better transportation for his next follow-up visit. To return the wound healing center 1 week or call sooner if he has any questions or concerns. I answered all his questions today.
[2018-04-08 11:12] VITALS: BP 190/86; PULSE 66; RESP 16; TEMP 36
--- NOTE | 2018-04-08 13:14 | PCM.WC.PN ---
(1) Ulcer of right foot with fat layer exposed Status: Chronic Current Visit: Yes Code(s): L97.512 - Non-pressure chronic ulcer of other part of right foot with fat layer exposed (2) Charcot foot due to diabetes mellitus Status: Chronic Current Visit: Yes Code(s): E11.610 - Type 2 diabetes mellitus with diabetic neuropathic arthropathy (3) Type 2 diabetes mellitus with diabetic polyneuropathy Status: Chronic Current Visit: Yes Qualifiers: Code(s): E11.42 - Type 2 diabetes mellitus with diabetic polyneuropathy (4) Leg edema Status: Chronic Current Visit: Yes Code(s): R60.0 - Localized edema (5) Delayed wound healing Status: Chronic Current Visit: Yes Code(s): T14.8XXD - Other injury of unspecified body region, subsequent encounter Type of Wound Date of Service: 04/08/18 Chief Complaint: Right foot ulcer History of Wound: This 63-year-old male with diabetes and other comorbidities was seen in the wound healing center for right foot ulcer that has an onset of April 2017. He denies fever, nausea, vomiting, loss of appetite. He had trouble getting here due to his transportation counseling at the last moment. He does have a follow-up appointment scheduled already with his primary care physician, timber repairer, and teacher of the visually impaired. He has a vascular surgery appointment scheduled for 04/15/2018. Progress of Wound: Healed - Physical Exam Vital Signs Temp Pulse Resp BP 96.8 F L 66 16 190/86 H 04/08/18 11:12 04/08/18 11:12 04/08/18 11:12 04/08/18 11:12 General: Alert, Oriented x3, Cooperative Extremities: No cyanosis, Capillary Refill Less than 3 Seconds, No Calf Tenderness - Negative Laci and Yoder sign bilateral, Diminished Peripheral Pulses, Edema, - - Right rocker-bottom foot deformity noted stable without laxity or acute changes Skin: Ulcer/ Wound - The previous ulcer site is now healed with full epithelialization noted the skin at this recently healed site and peripherally remain atrophic and hairless. There is no eschar or bogginess on palpation. Wound Measurements and Assessment WC - Nurse 1 - General Ulcer Measurement Start: 03/17/18 12:50 Freq: Status: Active Protocol: Activity Type Activity Date Activity User E-Sign Co-Sign Detail Recorded Client Recorded Date Recorded By Document 04/08/18 11:12 [facility] [id number] 04/08/18 11:26 [facility] 04/08/18 11:12 Wound Center Nurse 1 [Ulcer Assessment] #1 R midfoot plantar -Combined with other wound No -Current Size (cm) - Length 0.1 -Current Size (cm) - Width 0.1 -Current Size (cm) - Depth 0.1 -Total Square Cm 0.01 -Date of Last Picture (Recall this 04/08/18 field) -Photo Taken Yes -Epithelialization Large 67-100% -Tunneling No -Undermining/Tunneling No -Circular Undermining No -Exudate Amt Small (1-33%) -Exudate Type Serous -Wound Margin Distinct, Outline Attached -Temperature (Anna-wound Skin No Abnormality Appearance) (Pt Warm) -Tenderness on Palpation (Anna-wound No Skin Appearance) -Ulcer Cleansing Rinsed/ Irrigated with Saline -Foul Odor after Cleansing No -Anesthetic Used 4% Lidocaine Solution [Edema Assessment] -Lower Limb Edema Present Yes -Right Calf (cm) 40.6 -Right Ankle (cm) 23.7 WC - Nurse 2 - General Ulcer CM Notes Start: 03/17/18 12:50 Freq: Status: Active Protocol: Activity Type Activity Date Activity User E-Sign Co-Sign Detail Recorded Client Recorded Date Recorded By Document 04/08/18 11:49 [id number] 04/08/18 11:52 04/08/18 11:49 Wound Center Nurse 2 [Procedure/Treatment] #1 R midfoot plantar -Time 11:49 -Correct Patient Yes -Correct Side, Site, Position Yes -Correct Procedure Yes -Procedure Performed Yes -Post Debridement Size (cm) - Length 0 -Post Debridement Size (cm) - Width 0 -Post Debridement Size (cm) - Depth 0 -Total Square Cm 0 -Wound/Ulcer Outcome Healed- Epithelialized -Ulcer Cleansing Rinsed/ Irrigated with Saline -Foul Odor after Cleansing No -Bioengineered Tissue No -Topical Lidocaine (%) 4 -Bleeding Controlled with NA -Treatment Response Procedure Tolerated Well [See Physician Procedure note for Specifics] Pain Scale: 0-10 Numeric [Pain] -Is Patient Pain Free? Yes Musculoskeletal: No Tenderness to Palpation of Joints or Extremities, Muscle Wasting Neurological: - - Lack of epicritic sensation light touch noted Psych/Mental Status: Normal Affect, Appropriate Debridement Note Post-Debridement Measurements/Treatment WC - Nurse 2 - General Ulcer CM Notes Start: 03/17/18 12:50 Freq: Status: Active Protocol: Activity Type Activity Date Activity User E-Sign Co-Sign Detail Recorded Client Recorded Date Recorded By Document 03/17/18 13:20 TM [id number] 03/17/18 13:29 TM Document 03/25/18 12:14 DV [id number] 03/25/18 12:19 DV Document 04/08/18 11:49 TM [id number] 04/08/18 11:52 TM 03/17/18 03/25/18 04/08/18 13:20 12:14 11:49 Wound Center Nurse 2 #1 R midfoot plantar -Time 13:28 12:15 11:49 -Correct Patient Yes Yes Yes -Correct Side, Site, Position Yes Yes Yes -Correct Procedure Yes Yes Yes -Procedure Performed Yes Yes Yes -Type of Procedure Debridement Debridement -Clinical Debridement Subcutaneous Subcutaneous -Post Debridement Size (cm) - Length 1.3 1.0 0 -Post Debridement Size (cm) - Width 2.6 1.9 0 -Post Debridement Size (cm) - Depth 0.1 0.1 0 -Total Square Cm 3.38 1.90 0 -Wound/Ulcer Outcome Not Healed Not Healed Healed- Epithelialized -Ulcer Cleansing Rinsed/ Rinsed/ Rinsed/ Irrigated with Irrigated with Irrigated with Saline Saline Saline -Foul Odor after Cleansing No No No -Bioengineered Tissue Yes Yes No -Type of bioengineered Tissue EPICORD EPIFIX -Expiration Date 11/14/22 11/14/22 -Product Lot Number [id number] -Percent Used 100 100 -Saline Lot Number [id number] -Topical Lidocaine (%) 4 4 4 -Bleeding Controlled with Pressure Pressure NA -Treatment Response Procedure Procedure Procedure Tolerated Well Tolerated Well Tolerated Well Pain Scale: 0-10 Numeric Is Patient Pain Free? Yes Yes Yes No debridement was completed today - The ulcer site has healed Assessment/Plan Active Problems Ulcer of right foot with fat layer exposed (Chronic) Charcot foot due to diabetes mellitus (Chronic) Type 2 diabetes mellitus with diabetic polyneuropathy (Chronic) Leg edema (Chronic) Malnutrition (Chronic) Delayed wound healing (Chronic) Assessment: Plantar james grade 1 foot ulcer, no infection. Charcot foot, stable and nonacute. Diabetes with neuropathy. vascular disease. venous insufficiency. Delayed healing. Malnutrition suspected. Equinus. Compliance compromise Plan: I reviewed and discussed his case today. Debridement was not performed because the ulcer site has healed. He will monitor for reopening return of infection which neither is noted today. To continue proper foot hygiene. To continue daily moisturizing to maintain good skin integrity. To discontinue all dressing care. To continue to wear offloading cam walker [place] walker for the next 1-2 weeks to allow continued skin remodeling. He will bring these items as well as his ankle foot orthotic brace with extra-depth shoe for reevaluation next week. To discontinue nutritional supplementation. He understands he is still at risk for continued ulcer formation. I answered all his questions.
[2018-04-15 13:20] VITALS: BP 123/54; PULSE 75; RESP 22; TEMP 36.6
--- NOTE | 2018-04-15 14:58 | PCM.WC.PN ---
(1) Ulcer of right foot with fat layer exposed Status: Resolved Code(s): L97.512 - Non-pressure chronic ulcer of other part of right foot with fat layer exposed (2) Charcot foot due to diabetes mellitus Status: Chronic Code(s): E11.610 - Type 2 diabetes mellitus with diabetic neuropathic arthropathy (3) Type 2 diabetes mellitus with diabetic polyneuropathy Status: Chronic Qualifiers: Code(s): E11.42 - Type 2 diabetes mellitus with diabetic polyneuropathy (4) Leg edema Status: Chronic Code(s): R60.0 - Localized edema (5) Delayed wound healing Status: Chronic Code(s): T14.8XXD - Other injury of unspecified body region, subsequent encounter Type of Wound Date of Service: 04/15/18 Chief Complaint: Right foot ulcer History of Wound: This 63-year-old male with diabetes and other comorbidities was seen in the wound healing center for right foot ulcer that has an onset of April 2017. He denies fever, nausea, vomiting, loss of appetite. He denies drainage of the past week. He is here to confirm that the ulcer site is healed. Progress of Wound: Remains healed - Physical Exam Vital Signs Temp Pulse Resp BP 97.8 F 75 22 H 123/54 H 04/15/18 13:20 04/15/18 13:20 04/15/18 13:20 04/15/18 13:20 General: Alert, Oriented x3, Cooperative Extremities: No cyanosis, Capillary Refill Less than 3 Seconds, No Calf Tenderness - Negative Laci and Yoder sign, Diminished Peripheral Pulses, Edema, - - Right rocker-bottom foot noted Skin: Ulcer/ Wound - Full epithelialization is continued. There is no skin discontinuity, infection, drainage or redness. The skin is atrophic. Wound Measurements and Assessment WC - Nurse 1 - General Ulcer Measurement Start: 03/17/18 12:50 Freq: Status: Active Protocol: Activity Type Activity Date Activity User E-Sign Co-Sign Detail Recorded Client Recorded Date Recorded By Document 04/15/18 13:20 DL [id number] 04/15/18 13:25 DL 04/15/18 13:20 Wound Center Nurse 1 [Edema Assessment] -Right Calf (cm) 41.5 -Right Ankle (cm) 25.5 WC - Nurse 2 - General Ulcer CM Notes Start: 03/17/18 12:50 Freq: Status: Active Protocol: Activity Type Activity Date Activity User E-Sign Co-Sign Detail Recorded Client Recorded Date Recorded By Document 04/15/18 13:42 [id number] 04/15/18 13:44 04/15/18 13:42 Pain Scale: 0-10 Numeric [Pain] -Is Patient Pain Free? Yes Musculoskeletal: No Tenderness to Palpation of Joints or Extremities, Muscle Wasting Neurological: - - Lack of normal epicritic sensation to light touch consistent with neuropathy Psych/Mental Status: Normal Affect, Appropriate Debridement Note Post-Debridement Measurements/Treatment WC - Nurse 2 - General Ulcer CM Notes Start: 03/17/18 12:50 Freq: Status: Active Protocol: Activity Type Activity Date Activity User E-Sign Co-Sign Detail Recorded Client Recorded Date Recorded By Document 03/17/18 13:20 [id number] 03/17/18 13:29 TM Document 03/25/18 12:14 DV [id number] 03/25/18 12:19 DV Document 04/08/18 11:49 [id number] 04/08/18 11:52 Document 04/15/18 13:42 [id number] 04/15/18 13:44 03/17/18 03/25/18 04/08/18 13:20 12:14 11:49 Wound Center Nurse 2 #1 R midfoot plantar -Time 13:28 12:15 11:49 -Correct Patient Yes Yes Yes -Correct Side, Site, Position Yes Yes Yes -Correct Procedure Yes Yes Yes -Procedure Performed Yes Yes Yes -Type of Procedure Debridement Debridement -Clinical Debridement Subcutaneous Subcutaneous -Post Debridement Size (cm) - Length 1.3 1.0 0 -Post Debridement Size (cm) - Width 2.6 1.9 0 -Post Debridement Size (cm) - Depth 0.1 0.1 0 -Total Square Cm 3.38 1.90 0 -Wound/Ulcer Outcome Not Healed Not Healed Healed- Epithelialized -Ulcer Cleansing Rinsed/ Rinsed/ Rinsed/ Irrigated with Irrigated with Irrigated with Saline Saline Saline -Foul Odor after Cleansing No No No -Bioengineered Tissue Yes Yes No -Type of bioengineered Tissue EPICORD EPIFIX -Expiration Date 11/14/22 11/14/22 -Product Lot Number [id number] -Percent Used 100 100 -Saline Lot Number [id number] -Topical Lidocaine (%) 4 4 4 -Bleeding Controlled with Pressure Pressure NA -Treatment Response Procedure Procedure Procedure Tolerated Well Tolerated Well Tolerated Well Pain Scale: 0-10 Numeric Is Patient Pain Free? Yes Yes Yes 04/15/18 13:42 Wound Center Nurse 2 #1 R midfoot plantar -Time -Correct Patient -Correct Side, Site, Position -Correct Procedure -Procedure Performed -Type of Procedure -Clinical Debridement -Post Debridement Size (cm) - Length -Post Debridement Size (cm) - Width -Post Debridement Size (cm) - Depth -Total Square Cm -Wound/Ulcer Outcome -Ulcer Cleansing -Foul Odor after Cleansing -Bioengineered Tissue -Type of bioengineered Tissue -Expiration Date -Product Lot Number -Percent Used -Saline Lot Number -Topical Lidocaine (%) -Bleeding Controlled with -Treatment Response Pain Scale: 0-10 Numeric Is Patient Pain Free? Yes No debridement was completed today - The ulcer site remains fully healed Assessment/Plan Assessment: Right foot ulcer healed. Charcot foot, stable and nonacute. Diabetes with neuropathy. vascular disease. venous insufficiency. Delayed healing. Malnutrition suspected. Equinus. Compliance compromise Plan: I reviewed and discussed his case today. Debridement was not performed because the ulcer site has remained healed. He will monitor for reopening return of infection which neither is noted today. To continue proper foot hygiene. To continue daily moisturizing to maintain good skin integrity. To discontinue all dressing care. To continue to wear offloading cam walker [place] walker for at least 70% of the time. I evaluated his ankle foot orthotic with his extra-depth diabetic shoes and it is okay if he to avoid slippery use of barefoot walking at home wears this 30% of the time. At all times is imperative to keep this healed. He will bring these items as well as his ankle foot orthotic brace with extra-depth shoe for reevaluation next week. To discontinue nutritional supplementation. He understands he is still at risk for continued ulcer formation. I answered all his questions. He is discharged from the wound healing center at this time. He will follow-up at the foot and ankle center for risk assessment palliative care and extra-depth diabetic shoe orders; he will call to schedule.
== END 2018-04-15 23:59 ==
LOC: WC 13:00
PROVIDERS: Visit Provider Podiatrist
DX: E11.621 Type 2 diabetes mellitus with foot ulcer (principal); L97.512 Non-pressure chronic ulcer of other part of right foot with fat layer exposed; E11.610 Type 2 diabetes mellitus with diabetic neuropathic arthropathy; E11.42 Type 2 diabetes mellitus with diabetic polyneuropathy; R60.0 Localized edema; I87.2 Venous insufficiency (chronic) (peripheral); E11.51 Type 2 diabetes mellitus with diabetic peripheral angiopathy without gangrene
CPT/HCPCS: 15271; 15275; 29445; 82962; 99212; 99213; Q4131; G0463

== ENCOUNTER 2018-05-08 20:09 | Inpatient (IN) | payer MEDICAID, SELFPAY ==
[2018-05-08 20:10] VITALS: BP 146/70; PULSE 79; RESP 18; TEMP 36.8; O2SAT 98; BMI 36.9
--- NOTE | 2018-05-08 20:50 | EKG12_ITS ---
Test Reason : GENERAL ILLNESS Blood Pressure : / mmHG Vent. Rate : 070 BPM Atrial Rate : 070 BPM P-R Int : 168 ms QRS Dur : 090 ms QT Int : 432 ms P-R-T Axes : 001 019 066 degrees QTc Int : 466 ms Normal sinus rhythm Normal ECG Confirmed by WILFREDO DYER, EVY ([id number]), supervising editor trailer MANUEL CABRERA ([id number]) on 05/11/2018 10:55:20 AM Referred By: JUSTINE Confirmed By:EVY VILLALOBOS MD
--- NOTE | 2018-05-08 21:02 | RAD_ITS ---
STUDY: X-RAY CHEST REASON FOR EXAM: Male, 63 years old. Short of breath TECHNIQUE: Single AP portable view of the chest. COMPARISON: None. FINDINGS: The lungs are clear and expanded. There is no demonstrated pleural abnormality. Normal size heart. Normal mediastinum and niraj. Normal visualized pulmonary arteries. Normal visualized aortic arch and descending thoracic aorta. Normal visualized thoracic spine. Normal visualized ribs, clavicles, and shoulders. There is no demonstrated abnormality of the visualized soft tissue structures of the upper abdomen. RAD/Chest 1 View (Portable) IMPRESSION: Normal x-ray examination of the chest. Electronically Signed: Morgan Gallo MD at 21:51 EST , Service support ,
[2018-05-08 21:06] LABS: Absolute Lymphocyte Count 1.53 X10^3/ul (0.83-4.51); Absolute Neutrophil Count 5.6 X10^3/uL (2.0-7.7); Basophil# 0.04 X10^3/uL; Basophil% 0.5 % (0-1); Eosinophil# 0.11 X10^3/uL; Eosinophils% 1.4 % (0-5); Hematocrit 39.6 % (40-54); Lymphocyte # 1.53 X10^3/ul (4.0); Lymphocyte % 19.4 % (19-41); Mean Corp Hgb Conc 32.8 g/gl (32-36); Mean Corpuscular Hgb 26.4 pg (27.0-32.0); Mean Corpuscular Volume 80.5 fL (80-94); Mean Platelet Vol. 11.1 fl (6.2-12.0); Monocyte% 7.6 % (0-10); Neutrophil # 5.59 X10^3/uL (2.7-7.7); Neutrophil % 70.8 % (47-70); Platelet Count 288 K/mm3 (150-450); RBC Distribution Width SD 43.7 fl (35.1-43.9); Red Blood Count 4.92 M/mm3 (4.6-6.2); White Blood Count 7.9 K/mm3 (4.4-11.0)
[2018-05-08 21:09] LABS: POSITIVE COUNT NO; POSITIVE DIFFERENTIAL NO; POSITIVE MORPHOLOGY NO
[2018-05-08 21:22] LABS: AST(SGOT) 10 U/L (15-37); Alanine Aminotransfer ALT/SGPT 16 U/L (16-61); Alkaline Phosphatase 127 U/L (45-117); Anion Gap 11 (5-15); BUN 50 mg/dL (7-18); BUN/Creat Ratio 12.2 RATIO (10-20); Bilirubin, Direct < 0.05 mg/dL (0.00-0.30); Chloride 101 mmol/L (98-107); Creatinine, Serum 4.09 mg/dL (0.70-1.30); EST Glomerular Filtration Rate 16 mL/min (>60); Est Glom Filt Rate - Afr Amer 19 mL/min (>60); Estimated Creatinine Clearance 21.16 ml/min; Globulin 3.9 g/dL (2.2-4.2); Glucose 403 mg/dL (74-106); Lipase 323 U/L (73-393); Protein, Total 5.9 g/dL (6.4-8.2); Sodium Level 133 mmol/L (136-145)
[2018-05-08] MEDS: 0.9% Normal Saline 1,000 ML 150 ML IV (21:40)
[2018-05-08 22:19] VITALS: BP 209/111; PULSE 59; RESP 16; O2SAT 98
[2018-05-08 22:31] LABS: Bedside Glucose 367 mg/dL (70-110)
[2018-05-08] MEDS: Carvedilol 12.5 MG Tablet PO (22:43)
[2018-05-08] MEDS: Doxazosin 1 MG Tablet 2 MG PO (22:43)
[2018-05-08] MEDS: Insulin Lispro 100 UNIT/ML INSULN.PEN 12 UNIT SC (23:15)
[2018-05-08 23:20] LABS: Bedside Glucose 347 mg/dL (70-110)
[2018-05-08 23:36] VITALS: BP 187/105; PULSE 60; RESP 16; O2SAT 98
--- NOTE | 2018-05-08 23:39 | PCM.HP.STD ---
Problem List (1) Syncope Status: Acute Qualifiers: Syncope type: unspecified Qualified Code(s): R55 - Syncope and collapse (2) Hypertensive urgency Status: Acute (3) Hyperglycemia due to type 2 diabetes mellitus Status: Acute Qualifiers: Diabetes mellitus detention insulin use: with detention use Qualified Code(s): E11.65 - Type 2 diabetes mellitus with hyperglycemia; Z79.4 - intermodal customer service (current) use of insulin (4) Obesity (BMI 30.0-34.9) Status: Chronic (5) Charcot foot due to diabetes mellitus Status: Chronic (6) Type 2 diabetes mellitus with diabetic polyneuropathy Status: Chronic Qualifiers: Diabetes mellitus termite exterminator helper insulin use: with detention use Qualified Code(s): E11.42 - Type 2 diabetes mellitus with diabetic polyneuropathy; Z79.4 - halfway (current) use of insulin (7) Venous insufficiency Status: Chronic (8) Other specified peripheral vascular diseases Status: Suspected (9) CKD (chronic kidney disease) stage 5, GFR less than 15 ml/min Status: Chronic (10) Anemia Status: Chronic Qualifiers: Anemia type: unspecified type Qualified Code(s): D64.9 - Anemia, unspecified History of Present Illness Date of Admission: 05/08/18 Chief Complaint: Near syncopal event, elevated BPs, elevated BS. The patient is a 63 y/o M w/ PMHx: CKD stage IV following w/ Security Systems Engineer in [place] with upcoming evaluation for dialysis, Diabetes mellitus type II, Hypertension, Hyperlipidemia, Obesity, Psoriasis, Right Charcot right foot, Hx prior chronic right foot wound now healed previously following with wound therapy who [facility] with history of malaise, fatigue over the last week, noted to have failed to take his BP regimen as well as his insulin DM regimen over the last 1.5 weeks with onset lightheadedness, dizziness and near syncopal event while standing in the kitchen talking to his family, noting that he had just awoken from sleeping. His family helped him sit without any complete LOC. He notes that his daughter is an RN and took his BP which was 190/118 and again he admitted to not having taken his BP regimen for several days nor his insulin. In the ED work-up included T 98.2, heart rate 79, BP 209/111 initially upon presentation--> 173/96, respiratory rate 18, 98% on room air, CBC with WBC 7.9, hemoglobin 13, platelet 288 without shift, CMP with sodium 133, BUN/creatinine 50/4.09, glucose 403, AST/ALT 10/16, alkaline phosphatase 127, troponin < 0.015, lipase 323, chest x-ray with no acute findings, EKG with sinus rhythm with no acute evidence of ischemia. In the ED patient administered normal saline, home OxyIR, home Cardura 2 mg p.o. x1, home Coreg 12.5 mg p.o. x1, insulin 12 units subcu x1, labetalol 10 mg IV x1. Past Medical History Past Medical History (Chronic Problems): Chronic Problems Charcot foot due to diabetes mellitus (Chronic) Type 2 diabetes mellitus with diabetic polyneuropathy (Chronic) Venous insufficiency (Chronic) Leg edema (Chronic) Malnutrition (Chronic) Delayed wound healing (Chronic) Vitamin D deficiency (Chronic) CKD (chronic kidney disease) stage 5, GFR less than 15 ml/min (Chronic) Anemia (Chronic) Maceration of periwound skin (Chronic) Obesity (BMI 30.0-34.9) (Chronic) Allergies amoxicillin Allergy (Verified 05/08/18 20:10) Swelling baclofen Allergy (Verified 05/08/18 20:10) Swelling pregabalin [From Lyrica] Allergy (Verified 05/08/18 20:10) Swelling Sulfa (Sulfonamide Antibiotics) Allergy (Verified 05/08/18 20:10) Swelling Home Medications: Ambulatory Orders Medication Instructions Recorded Amlodipine [Norvasc] 10 mg PO DAILY 02/19/18 Aspirin E.C. [Ecotrin] 81 mg PO DAILY 02/19/18 Atorvastatin Calcium 80 mg PO DAILY 02/19/18 Carvedilol 12.5 mg PO BID 02/19/18 Cyanocobalamin (Vitamin B-12) 1,000 mcg PO DAILY 02/19/18 [B-12] Doxazosin Mesylate 2 mg PO BID 02/19/18 Ferrous Sulfate [Iron] 325 mg PO DAILY 02/19/18 Insulin Glargine,Hum.rec.anlog 75 unit SQ BID 02/19/18 [Basaglar Kwikpen U-100] Insulin Lispro [Humalog KwikPen] 50 units SQ TIDCM 02/19/18 Lisinopril 20 mg PO DAILY 02/19/18 Oxycodone [Oxyir] 15 mg PO Q6H 02/19/18 Torsemide [Demadex] 20 mg PO DAILY 05/08/18 Surgical History: cataract, - Lives: With Family - She is currently living with his daughter and her spouse. Smoking Status: Former smoker - Patient form of cigarette tobacco and chew tobacco user. Tobacco Use: Non-smoker Alcohol: None Drugs: None - *Family History Maternal History Items: Diabetes Paternal History Items: Diabetes, Heart Disease Review of Systems Constitutional: Reports: Anorexia, Malaise, Weakness, Fatigue. Denies: Chills, Fever, Weight Change HEENT: Denies: Head Aches, Sinus Congestion, Sinus Drainage Cardiovascular: Reports: Light Headedness, Syncope - Near syncopal event.. Denies: Chest Pain, Palpitations Respiratory: Denies: Cough, Shortness of breath at rest, Sputum production Gastrointestinal: Reports: Nausea. Denies: Abdominal Pain, Vomiting Genitourinary: Denies: Dysuria Musculoskeletal: Reports: Back Pain, Joint Pain. Denies: Joint Tenderness Skin: Denies: Rash, Wounds Neurological: Denies: Numbness, Tingling, Focal weakness Psychiatric: Denies: Anxiety, Depression, Homicidal Ideations, Suicidal Ideations Hematologic/ Lymphatic: Reports: Anemia. Denies: Easy Bruising, Easy Bleeding VTE Information - Inpt Only VTE Present on Admission: No VTE Mechan Device Prophylaxis: SCD's VTE Pharm Prophylaxis ordered?: Yes Patient Problems: Active and Suspected Problems Syncope (Acute) Hypertensive urgency (Acute) Hyperglycemia due to type 2 diabetes mellitus (Acute) Subjective: Seated upright in the ED bed, no acute distress. Objective: Physical Examination: General: awake, alert, oriented x 3 and cooperative, seated upright in the ED bed in no apparent distress, fatigued appearance. Skin: normal color, turgor, no icterus, cyanosis except notable diffuse psoriasis in bilateral lower extremity chronic venous stasis skin changes. HEENT: AT/NC, EOMI, PERRLA, moderately dry MM, no carotid bruits or JVD noted; however thickened neck makes examination to difficult. Lungs: Managed breath sounds bilateral bases, moderate effort, no rales, ronchi or wheezing. Heart: Regular rate and rhythm; no gallop, rub audible. Abdomen: soft, obese, NTTP, ND, normal BS, no HSM; habitus makes examination difficult.. Extremities: no cyanosis, clubbing, bilateral lower extremity chronic venous stasis skin changes with 1+ ankle edema. Neurological: patient awake, alert, oriented x 3; cognitive function intact; pupils equally reactive to light and accomodation; cranial nerves II-XII grossly normal, moving all 4 extremities, no focal deficits, strength mildly globally decreased secondary to acute presentation. Psychiatric: affect appears flat, fatigued, no acute evidence of depressive or anxiety feelings. - Physical Exam Vital Signs Temp Pulse Resp BP Pulse Ox 98.2 F 60 16 187/105 H 98 05/08/18 20:10 05/08/18 23:36 05/08/18 23:36 05/08/18 23:36 05/08/18 23:36 Oxygen Delivery Method Room Air Weight: 280 lb Body Mass Index (BMI) 36.9 Finger Stick Blood Glucose 347 Laboratory Tests Past 24 Hrs 05/08/18 05/08/18 20:30 20:30 WBC 7.9 RBC 4.92 Hgb 13.0 Hct 39.6 L MCV 80.5 MCH 26.4 L MCHC 32.8 RDW 15.0 H RDW Differential 43.7 Plt Count 288 MPV 11.1 Immature Gran % (Auto) 0.300 Neut % (Auto) 70.8 H Lymph % (Auto) 19.4 Iron % (Auto) 7.6 Eos % (Auto) 1.4 Baso % (Auto) 0.5 Absolute Neuts (auto) 5.6 Absolute Lymphs (auto) 1.53 Total Counted Not Reportable Sodium 133 L Potassium 4.0 Chloride 101 Carbon Dioxide 21.0 Anion Gap 11 BUN 50 H Creatinine 4.09 H Estim Creat Clear Calc 21.16 Est GFR (MDRD) Af Amer 19 L Est GFR (MDRD) Non-Af 16 L BUN/Creatinine Ratio 12.2 Glucose 403 H Calcium 8.0 L Total Bilirubin 0.10 L Direct Bilirubin < 0.05 AST 10 L ALT 16 Alkaline Phosphatase 127 H Troponin I < 0.015 Total Protein 5.9 L Albumin 2.0 L Globulin 3.9 Lipase 323 POC Glucose 05/08/18 05/08/18 23:14 22:27 POC Glucose 347 H 367 H Assessment/Plan All Active Problems Ulcer of right foot with fat layer exposed (Resolved) Hyperkalemia (Acute) Syncope (Acute) Hypertensive urgency (Acute) Hyperglycemia due to type 2 diabetes mellitus (Acute) The patient is a 63 y/o M w/ PMHx: CKD stage IV following w/ Security Systems Engineer in [place] with upcoming evaluation for dialysis, Diabetes mellitus type II, Hypertension, Hyperlipidemia, Obesity, Psoriasis, Right Charcot right foot, Hx prior chronic right foot wound now healed previously following with wound therapy who [facility] with history of malaise, fatigue over the last week, noted to have failed to take his BP regimen as well as his insulin DM regimen over the last 1.5 weeks with onset lightheadedness, dizziness and near syncopal event while standing in the kitchen talking to his family, noting that he had just awoken from sleeping. (1) Lightheadedness, Dizziness w/ Near Syncopal Event: Unclear etiololgy although suspect secondary to recent failure to take his blood pressure as well as his diabetic medications. EKG in ED w/ sinus rhythm without evidence of acute ischemia, CXR w/ no acute cardiopulmonary findings, initial trop normal. Will admit to PCU, place on a monitored bed to assure no acute myocardial infarction with serial cardiac enzymes and EKGs. Will maintain on fall precautions, obtain admission orthostatic VS, will gently hydrate. Will obtain ECHO. PT/OT consultation to ascertain stability and discharge needs. Case management also consulted to assist with any barriers to care given his noncompliance. (2) Diabetes mellitus type II w/ Hyperglycemia, Uncontrolled, Non-complaint: Admits to recently failure to take medications and prior often missing doses insulin. Hold oral home regimen, restart home insulin regimen, ADA diet, accu checks w/ ISS, HgBA1c pending, nutrition consultation for education and teaching. (3) Hypertensive Urgency: Suspect likely contributing to near syncopal events, will restart home regimen including Norvasc, Coreg, doxazosin, lisinopril, torsemide, and hydralazine. (4) Chronic Kidney Disease Stage IV: Admission BUN/Cr 50/4.09, baseline renal function 3.8-4.9, repeat BMP in AM. (5) Hyperlipidemia: Continue home statin regimen. AM FLP. (6) Obesity: Weight loss and lifestyle changes encouraged. (7) Charcot right foot, right: Continue home braces. (8) Anemia of chronic disease, iron deficiency anemia: Admission hemoglobin 13, continue home iron supplementation. (9) Suspect Possibility CARMELINA: Habitus notable, thickened neck, high risk for CARMELINA, encourage evaluation outpatient. (10) DVT prophylaxis: SCDs, heparin. Code Visit Inpatient E&M: 75361 Init Hosp L3
--- NOTE | 2018-05-08 23:42 | HP.PCM_ITS ---
Problem List (1) Syncope Status: Acute Qualifiers: Syncope type: unspecified Qualified Code(s): R55 - Syncope and collapse (2) Hypertensive urgency Status: Acute (3) Hyperglycemia due to type 2 diabetes mellitus Status: Acute Qualifiers: Diabetes mellitus shelter insulin use: with shelter use Qualified Code(s): E11.65 - Type 2 diabetes mellitus with hyperglycemia; Z79.4 - intermediate project manager (current) use of insulin (4) Obesity (BMI 30.0-34.9) Status: Chronic (5) Charcot foot due to diabetes mellitus Status: Chronic (6) Type 2 diabetes mellitus with diabetic polyneuropathy Status: Chronic Qualifiers: Diabetes mellitus terminal system operator insulin use: with shelter use Qualified Code(s): E11.42 - Type 2 diabetes mellitus with diabetic polyneuropathy; Z79.4 - [facility] (current) use of insulin (7) Venous insufficiency Status: Chronic (8) Other specified peripheral vascular diseases Status: Suspected (9) CKD (chronic kidney disease) stage 5, GFR less than 15 ml/min Status: Chronic (10) Anemia Status: Chronic Qualifiers: Anemia type: unspecified type Qualified Code(s): D64.9 - Anemia, unspecified History of Present Illness Date of Admission: 05/08/18 Chief Complaint: Near syncopal event, elevated BPs, elevated BS. The patient is a 63 y/o M w/ PMHx: CKD stage IV following w/ Solid Waste Analyst in [place] with upcoming evaluation for dialysis, Diabetes mellitus type II, Hypertension, Hyperlipidemia, Obesity, Psoriasis, Right Charcot right foot, Hx prior chronic right foot wound now healed previously following with wound therapy who presents to the [facility] ED on 05/08/18 with history of malaise, fatigue over the last week, noted to have failed to take his BP regimen as well as his insulin DM regimen over the last 1.5 weeks with onset lightheadedness, dizziness and near syncopal event while standing in the kitchen talking to his family, noting that he had just awoken from sleeping. His family helped him sit without any complete LOC. He notes that his daughter is an RN and took his BP which was 190/118 and again he admitted to not having taken his BP regimen for several days nor his insulin. In the ED work-up included T 98.2, heart rate 79, BP 209/111 initially upon presentation--> 173/96, respiratory rate 18, 98% on room air, CBC with WBC 7.9, hemoglobin 13, platelet 288 without shift, CMP with sodium 133, BUN/creatinine 50/4.09, glucose 403, AST/ALT 10/16, alkaline phosphatase 127, troponin < 0.015, lipase 323, chest x-ray with no acute findings, EKG with sinus rhythm with no acute evidence of ischemia. In the ED patient administered normal saline, home OxyIR, home Cardura 2 mg p.o. x1, home Coreg 12.5 mg p.o. x1, insulin 12 units subcu x1, labetalol 10 mg IV x1. Past Medical History Past Medical History (Chronic Problems): Chronic Problems Charcot foot due to diabetes mellitus (Chronic) Type 2 diabetes mellitus with diabetic polyneuropathy (Chronic) Venous insufficiency (Chronic) Leg edema (Chronic) Malnutrition (Chronic) Delayed wound healing (Chronic) Vitamin D deficiency (Chronic) CKD (chronic kidney disease) stage 5, GFR less than 15 ml/min (Chronic) Anemia (Chronic) Maceration of periwound skin (Chronic) Obesity (BMI 30.0-34.9) (Chronic) Allergies amoxicillin Allergy (Verified 05/08/18 20:10) Swelling baclofen Allergy (Verified 05/08/18 20:10) Swelling pregabalin [From Lyrica] Allergy (Verified 05/08/18 20:10) Swelling Sulfa (Sulfonamide Antibiotics) Allergy (Verified 05/08/18 20:10) Swelling Home Medications: Ambulatory Orders Medication Instructions Recorded Amlodipine [Norvasc] 10 mg PO DAILY 02/19/18 Aspirin E.C. [Ecotrin] 81 mg PO DAILY 02/19/18 Atorvastatin Calcium 80 mg PO DAILY 02/19/18 Carvedilol 12.5 mg PO BID 02/19/18 Cyanocobalamin (Vitamin B-12) 1,000 mcg PO DAILY 02/19/18 [B-12] Doxazosin Mesylate 2 mg PO BID 02/19/18 Ferrous Sulfate [Iron] 325 mg PO DAILY 02/19/18 Insulin Glargine,Hum.rec.anlog 75 unit SQ BID 02/19/18 [Basaglar Kwikpen U-100] Insulin Lispro [Humalog KwikPen] 50 units SQ TIDCM 02/19/18 Lisinopril 20 mg PO DAILY 02/19/18 Oxycodone [Oxyir] 15 mg PO Q6H 02/19/18 Torsemide [Demadex] 20 mg PO DAILY 05/08/18 Surgical History: cataract, - Lives: With Family - She is currently living with his daughter and her spouse. Smoking Status: Former smoker - Patient form of cigarette tobacco and chew tobacco user. Tobacco Use: Non-smoker Alcohol: None Drugs: None - *Family History Maternal History Items: Diabetes Paternal History Items: Diabetes, Heart Disease Review of Systems Constitutional: Reports: Anorexia, Malaise, Weakness, Fatigue. Denies: Chills, Fever, Weight Change HEENT: Denies: Head Aches, Sinus Congestion, Sinus Drainage Cardiovascular: Reports: Light Headedness, Syncope - Near syncopal event.. Denies: Chest Pain, Palpitations Respiratory: Denies: Cough, Shortness of breath at rest, Sputum production Gastrointestinal: Reports: Nausea. Denies: Abdominal Pain, Vomiting Genitourinary: Denies: Dysuria Musculoskeletal: Reports: Back Pain, Joint Pain. Denies: Joint Tenderness Skin: Denies: Rash, Wounds Neurological: Denies: Numbness, Tingling, Focal weakness Psychiatric: Denies: Anxiety, Depression, Homicidal Ideations, Suicidal Ideations Hematologic/ Lymphatic: Reports: Anemia. Denies: Easy Bruising, Easy Bleeding VTE Information - Inpt Only VTE Present on Admission: No VTE Mechan Device Prophylaxis: SCD's VTE Pharm Prophylaxis ordered?: Yes Patient Problems: Active and Suspected Problems Syncope (Acute) Hypertensive urgency (Acute) Hyperglycemia due to type 2 diabetes mellitus (Acute) Subjective: Seated upright in the ED bed, no acute distress. Objective: Physical Examination: General: awake, alert, oriented x 3 and cooperative, seated upright in the ED bed in no apparent distress, fatigued appearance. Skin: normal color, turgor, no icterus, cyanosis except notable diffuse psoriasis in bilateral lower extremity chronic venous stasis skin changes. HEENT: AT/NC, EOMI, PERRLA, moderately dry MM, no carotid bruits or JVD noted; however thickened neck makes examination to difficult. Lungs: Managed breath sounds bilateral bases, moderate effort, no rales, ronchi or wheezing. Heart: Regular rate and rhythm; no gallop, rub audible. Abdomen: soft, obese, NTTP, ND, normal BS, no HSM; habitus makes examination difficult.. Extremities: no cyanosis, clubbing, bilateral lower extremity chronic venous stasis skin changes with 1+ ankle edema. Neurological: patient awake, alert, oriented x 3; cognitive function intact; pupils equally reactive to light and accomodation; cranial nerves II-XII grossly normal, moving all 4 extremities, no focal deficits, strength mildly globally decreased secondary to acute presentation. Psychiatric: affect appears flat, fatigued, no acute evidence of depressive or anxiety feelings. - Physical Exam Vital Signs Temp Pulse Resp BP Pulse Ox 98.2 F 60 16 187/105 H 98 05/08/18 20:10 05/08/18 23:36 05/08/18 23:36 05/08/18 23:36 05/08/18 23:36 Oxygen Delivery Method Room Air Weight: 280 lb Body Mass Index (BMI) 36.9 Finger Stick Blood Glucose 347 Laboratory Tests Past 24 Hrs 05/08/18 05/08/18 20:30 20:30 WBC 7.9 RBC 4.92 Hgb 13.0 Hct 39.6 L MCV 80.5 MCH 26.4 L MCHC 32.8 RDW 15.0 H RDW Differential 43.7 Plt Count 288 MPV 11.1 Immature Gran % (Auto) 0.300 Neut % (Auto) 70.8 H Lymph % (Auto) 19.4 [place] % (Auto) 7.6 Eos % (Auto) 1.4 Baso % (Auto) 0.5 Absolute Neuts (auto) 5.6 Absolute Lymphs (auto) 1.53 Total Counted Not Reportable Sodium 133 L Potassium 4.0 Chloride 101 Carbon Dioxide 21.0 Anion Gap 11 BUN 50 H Creatinine 4.09 H Estim Creat Clear Calc 21.16 Est GFR (MDRD) Af Amer 19 L Est GFR (MDRD) Non-Af 16 L BUN/Creatinine Ratio 12.2 Glucose 403 H Calcium 8.0 L Total Bilirubin 0.10 L Direct Bilirubin < 0.05 AST 10 L ALT 16 Alkaline Phosphatase 127 H Troponin I < 0.015 Total Protein 5.9 L Albumin 2.0 L Globulin 3.9 Lipase 323 POC Glucose 05/08/18 05/08/18 23:14 22:27 POC Glucose 347 H 367 H Assessment/Plan All Active Problems Ulcer of right foot with fat layer exposed (Resolved) Hyperkalemia (Acute) Syncope (Acute) Hypertensive urgency (Acute) Hyperglycemia due to type 2 diabetes mellitus (Acute) The patient is a 63 y/o M w/ PMHx: CKD stage IV following w/ Solid Waste Analyst in [place] with upcoming evaluation for dialysis, Diabetes mellitus type II, Hypertension, Hyperlipidemia, Obesity, Psoriasis, Right Charcot right foot, Hx prior chronic right foot wound now healed previously following with wound therapy who presents to the [facility] ED on 05/08/18 with history of malaise, fatigue over the last week, noted to have failed to take his BP regimen as well as his insulin DM regimen over the last 1.5 weeks with onset lightheadedness, dizziness and near syncopal event while standing in the kitchen talking to his family, noting that he had just awoken from sleeping. (1) Lightheadedness, Dizziness w/ Near Syncopal Event: Unclear etiololgy although suspect secondary to recent failure to take his blood pressure as well as his diabetic medications. EKG in ED w/ sinus rhythm without evidence of acute ischemia, CXR w/ no acute cardiopulmonary findings, initial trop normal. Will admit to PCU, place on a monitored bed to assure no acute myocardial infarction with serial cardiac enzymes and EKGs. Will maintain on fall precautions, obtain admission orthostatic VS, will gently hydrate. Will obtain ECHO. PT/OT consultation to ascertain stability and discharge needs. Case management also consulted to assist with any barriers to care given his noncompliance. (2) Diabetes mellitus type II w/ Hyperglycemia, Uncontrolled, Non-complaint: Admits to recently failure to take medications and prior often missing doses insulin. Hold oral home regimen, restart home insulin regimen, ADA diet, accu checks w/ ISS, HgBA1c pending, nutrition consultation for education and teaching. (3) Hypertensive Urgency: Suspect likely contributing to near syncopal events, will restart home regimen including Norvasc, Coreg, doxazosin, lisinopril, torsemide, and hydralazine. (4) Chronic Kidney Disease Stage IV: Admission BUN/Cr 50/4.09, baseline renal function 3.8-4.9, repeat BMP in AM. (5) Hyperlipidemia: Continue home statin regimen. AM FLP. (6) Obesity: Weight loss and lifestyle changes encouraged. (7) Charcot right foot, right: Continue home braces. (8) Anemia of chronic disease, iron deficiency anemia: Admission hemoglobin 13, continue home iron supplementation. (9) Suspect Possibility CARMELINA: Habitus notable, thickened neck, high risk for CARMELINA, encourage evaluation outpatient. (10) DVT prophylaxis: SCDs, heparin. Code Visit Inpatient E&M: 74724 Init Hosp L3
--- NOTE | 2018-05-08 23:50 | ED.VISSUMM ---
- ER Visit Summary Date of Service: 05/08/18 Chief Complaint: Syncope, weakness History of Present Illness: The patient is a 63 M with generalized illness, not feeling well over the past week or so. He states he got out of bed tonight, walked to the kitchen, and while standing there became lightheaded and had a near syncopal episode. His daughter and son-in-law helped him back to bed. He states blood pressure was checked at that time was found to be 190/118. Patient's admits that he has not taken his blood pressure medicine for approximately week and a half, but did take his meds last night and this morning. He is not been taking his insulin on a regular basis either. Physical Examination: Blood pressure in triage was 146/70, temperature 98.2, heart rate 79, respiratory rate 18, pulse ox 98% on room air. Patient sitting upright in bed. He is in no acute distress, alert talkative. Head neck examination is normal. Heart is regular rate and rhythm. Lung sounds are clear. Abdomen is soft with mild tenderness in the right upper quadrant and left lower quadrant. No guarding or rebound. Lower extreme examination reveals his right foot to be in a boot. He reports recently healed Charcot foot. Neuro exam reveals no focal deficits. Test Results: EKG is sinus at 70 with no sign of acute ischemia. CBC is normal. Chemistry studies reveal glucose of 403 with corresponding sodium of 133. His BUN is 50 and his creatinine is 4.09. His most recent creatinine was 3.7, but has been up to 5 in the past. LFTs and lipase unremarkable. Troponin negative. Emergency Department Course and Treatment: Patient was given IV fluids. Blood pressure remained elevated during his ER stay with systolic pressures in the 190-210 range. He was given his normal evening dose of blood pressure medications. After IV fluids his blood sugar was 367. He is given 12 units of subcu insulin and blood sugar will be rechecked after 30 minutes. Labetalol 10 mg IV is also ordered. At this time I spoken with the hospitalist regarding admission for further evaluation. Treatment Plan: [] Disposition: Admit Impression: 1. Near syncope 2. Hypertensive urgency 3. Hyperglycemia This note was generated with [employer]IRx[employer]ation software. It may contain incorrect words, spelling, and punctuation that were not noted in review of the chart prior to signing ED Disposition - Plan for ED Patient: Chief Complaint: General Illness Referrals: [facility] Doctor,Out of [Primary Care Provider] -
[2018-05-08] MEDS: Labetalol 20 MG/4 ML Vial 10 MG IV (23:58)
[2018-05-09] VITALS (19 sets, daily range): BP systolic 103–209; BP diastolic 62–98; PULSE 57–78; RESP 12–16; TEMP 36.6–36.9; O2SAT 95–98; BMI 34.1; BMI 34.2
[2018-05-09] MEDS: oxyCODONE 5 MG Tablet 15 MG PO ×5 (00:03→23:27)
[2018-05-09 00:06] LABS: Bedside Glucose 349 mg/dL (70-110)
[2018-05-09 01:44] LABS: Hemoglobin A1c 10.1 % (4.2-6.3)
[2018-05-09] MEDS: 0.9% Normal Saline 1,000 ML 100 ML IV (02:11)
[2018-05-09] MEDS: 0.9% NaCl Peripheral Flush Adult/Peds IV (02:12)
[2018-05-09 02:53] LABS: Absolute Lymphocyte Count 2.28 X10^3/ul (0.83-4.51); Absolute Neutrophil Count 4.7 X10^3/uL (2.0-7.7); Basophil# 0.04 X10^3/uL; Basophil% 0.5 % (0-1); Eosinophil# 0.15 X10^3/uL; Eosinophils% 1.9 % (0-5); Hematocrit 33.9 % (40-54); Hemoglobin 11.3 g/dl (13.0-16.5); Lymphocyte # 2.28 X10^3/ul (4.0); Lymphocyte % 29.2 % (19-41); Mean Corp Hgb Conc 33.3 g/gl (32-36); Mean Corpuscular Hgb 26.5 pg (27.0-32.0); Mean Corpuscular Volume 79.6 fL (80-94); Monocyte# 0.57 X10^3/uL; Monocyte% 7.3 % (0-10); Neutrophil # 4.71 X10^3/uL (2.7-7.7); Neutrophil % 60.5 % (47-70); Platelet Count 254 K/mm3 (150-450); RBC Distribution Width CV 14.9 % (11.6-14.6); RBC Distribution Width SD 42.2 fl (35.1-43.9); Red Blood Count 4.26 M/mm3 (4.6-6.2); White Blood Count 7.8 K/mm3 (4.4-11.0)
[2018-05-09 02:54] LABS: POSITIVE COUNT NO; POSITIVE DIFFERENTIAL NO; POSITIVE MORPHOLOGY NO
[2018-05-09 03:13] LABS: ALB/GLOB Ratio 0.5 RATIO (0.9-2.4); AST(SGOT) 10 U/L (15-37); Alanine Aminotransfer ALT/SGPT 15 U/L (16-61); Albumin, Serum 1.8 g/dL (3.2-5.0); Alkaline Phosphatase 109 U/L (45-117); Anion Gap 11 (5-15); BUN 49 mg/dL (7-18); BUN/Creat Ratio 12.1 RATIO (10-20); Calcium,Total 7.6 mg/dL (8.5-10.1); Chloride 105 mmol/L (98-107); Creatinine, Serum 4.05 mg/dL (0.70-1.30); EST Glomerular Filtration Rate 16 mL/min (>60); Est Glom Filt Rate - Afr Amer 19 mL/min (>60); Estimated Creatinine Clearance 21.99 ml/min; Globulin 3.5 g/dL (2.2-4.2); Glucose 308 mg/dL (74-106); Potassium 3.7 mmol/L (3.5-5.1); Protein, Total 5.3 g/dL (6.4-8.2); Sodium Level 136 mmol/L (136-145)
--- NOTE | 2018-05-09 05:55 | EKG12_ITS ---
Test Reason : AM EKG Blood Pressure : / mmHG Vent. Rate : 059 BPM Atrial Rate : 059 BPM P-R Int : 190 ms QRS Dur : 100 ms QT Int : 436 ms P-R-T Axes : 015 030 075 degrees QTc Int : 431 ms Sinus bradycardia Otherwise normal ECG When compared with ECG of 20-FEB-2018 02:26, Nonspecific T wave abnormality now evident in Lateral leads Confirmed by WILFREDO DYER, EVY ([id number]), acquisitions editor MANUEL CABRERA ([id number]) on 05/12/2018 4:08:50 PM Referred By: ZULEMA Confirmed By:EVY VILLALOBOS MD
--- NOTE | 2018-05-09 05:55 | ECHOCS_ITS ---
Reason For Study: Arrhythmia Procedure This was a 2D Doppler, Color Flow transthoracic echocardiogram. Exam performed portable in patient room. Left Ventricle Normal LV size. Left ventricular systolic function is normal. The estimated ejection fraction is 65 %. Stage 1 diastolic dysfunction. No regional wall motion abnormalities noted. Right Ventricle Normal RV size. Normal systolic function. Atria Normal left atrium. Normal right atrium. Mitral Valve Normal mitral valve. Tricuspid Valve Normal tricuspid valve. Aortic Valve The aortic valve is not well visualized. Pulmonic Valve Normal pulmonic valve. Great Vessels Normal aortic root. Pericardium/Pleural No pericardial effusion. Medication Diluted definity 3ml given slow IV push to enhance endocardial definition. MMode/2D Measurements & Calculations LVIDd: 4.8 cm IVSd: 1.2 cm Ao root diam: 3.4 cm LVIDs: 2.7 cm LVPWd: 1.3 cm LA dimension: 4.3 cm FS: 44.7 % LAV(MOD-sp4): 81.2 ml LA A4 area: 24.3 cm2 Time Measurements MV dec time: 0.26 sec Doppler Measurements & Calculations MV E max naveen: 59.4 cm/sec Lat Peak E' Naveen: 12.3 cm/sec Med Peak E' Naveen: 5.0 cm/sec MV A max naveen: 92.8 cm/sec E/E' lat: 4.8 E/E' med: 12.0 MV E/A: 0.64 MV V2 max: 97.3 cm/sec MV P1/2t max naveen: 90.5 cm/sec Ao V2 max: 172.4 cm/sec MV max P.8 mmHg MV P1/2t: 86.2 msec Ao max P.9 mmHg MV V2 mean: 52.2 cm/sec MV dec slope: 307.4 cm/sec2 Ao V2 mean: 112.2 cm/sec MV mean P.3 mmHg Ao mean P.8 mmHg MV V2 VTI: 33.0 cm MVA(P1/2t): 2.6 cm2 Ao V2 VTI: 29.6 cm LV V1 max: 131.3 cm/sec PA V2 max: 112.7 cm/sec LV V1 max P.9 mmHg LV V1 mean P.1 mmHg LV V1 mean: 94.6 cm/sec LV V1 VTI: 31.2 cm Interpretation Summary Normal LV size. Left ventricular systolic function is normal. The estimated ejection fraction is 65 %. Stage 1 diastolic dysfunction. Structurally normal valves. Contrast injection was performed. Ordering Physician: Olamide Frank Performed By: Jose Francisco Briggs RCS
[2018-05-09] MEDS: Acetaminophen 325 MG Tablet 650 MG PO ×3 (07:49→22:34)
[2018-05-09 08:11] LABS: Bedside Glucose 284 mg/dL (70-110)
[2018-05-09] MEDS: Insulin Lispro 100 UNIT/ML INSULN.PEN 50 UNIT SC ×2 (09:04→11:46)
[2018-05-09] MEDS: Insulin Lispro 100 UNIT/ML INSULN.PEN SC ×2 (09:04→11:46)
[2018-05-09] MEDS: Doxazosin 1 MG Tablet 2 MG PO ×2 (09:07→21:15)
[2018-05-09] MEDS: Carvedilol 12.5 MG Tablet PO ×2 (09:07→21:15)
[2018-05-09] MEDS: Aspirin E.C. 81 MG Tablet PO (09:08)
[2018-05-09] MEDS: Ferrous Sulfate 325 MG Tablet PO (09:08)
[2018-05-09] MEDS: Heparin Injection (Vial) 5,000 UNIT/ML VIAL 5000 UNIT SC ×2 (09:09→21:16)
[2018-05-09] MEDS: Furosemide 40 MG Tablet PO (09:10)
[2018-05-09] MEDS: amLODIPine 10 MG Tablet PO (09:10)
[2018-05-09] MEDS: Lisinopril 20 MG Tablet PO (09:10)
[2018-05-09] MEDS: 0.9% Normal Saline 1,000 ML 150 ML IV ×3 (09:47→22:28)
[2018-05-09 11:55] LABS: Bedside Glucose 222 mg/dL (70-110)
[2018-05-09] MEDS: Glucerna Shake 120 ML LIQUID PO (11:55)
--- NOTE | 2018-05-09 13:36 | PN_ITS ---
Patient Problems: Active and Suspected Problems Syncope (Acute) Hypertensive urgency (Acute) Hyperglycemia due to type 2 diabetes mellitus (Acute) Subjective: Patient seen and examined. Complains of continued dizziness/lightheadedness, worse upon standing. Denies shortness of breath, chest pain. Admits to noncompliance with medication regimen and follow-up. Has not taken his blood pressure regimen for the past week and a half. - Physical Exam General: Alert, Oriented x3, Cooperative, No apparent distress HEENT: Atraumatic, PERRLA, EOMI, Normocephalic Neck: Supple, No JVD, Negative Carotid Bruits Lungs: Clear to auscultation, Normal air movement Cardiovascular: Regular rate, Regular Rhythm, Normal S1, Normal S2, No murmurs Abdomen: Bowel Sounds Present, Soft, Non Tender, Non-Distended, Obese Extremities: No clubbing, No cyanosis, No edema, Capillary Refill Less than 3 Seconds Skin: No rashes, No breakdown, - - Chronic skin changes bilateral lower extremities Musculoskeletal: No Tenderness to Palpation of Joints or Extremities Neurological: Cranial nerves II-XII grossly intact, Neuro grossly intact Psych/Mental Status: Normal Affect, Appropriate Vital Signs Temp Pulse Resp BP Pulse Ox 98.0 F 67 14 142/63 H 97 05/09/18 09:20 05/09/18 11:00 05/09/18 09:20 05/09/18 09:20 05/09/18 09:20 Oxygen Delivery Method Room Air Weight: 266 lb 1.567 oz Body Mass Index (BMI) 34.1 Finger Stick Blood Glucose 349 Orthostatic Vital Signs Start: 05/09/18 06:21 Freq: q24h Status: Active Protocol: Activity Type Activity Date Activity User E-Sign Co-Sign Detail Recorded Client Recorded Date Recorded By Document 05/09/18 06:21 [facility] [place] [id number] 05/09/18 06:26 NICA 05/09/18 06:21 Orthostatic Vitals Standing -Blood Pressure (90/60-120/80) 129/85 H -Extremity Use Right Arm -Pulse Rate (60-100) 77 Sitting -Blood Pressure (90/60-120/80) 134/79 H -Extremity Use Right Arm -Pulse Rate (60-100) 66 Lying -Blood Pressure (90/60-120/80) 159/78 H -Extremity Use Right Arm -Pulse Rate (60-100) 60 Intake and Output for Last 24 Hours 05/07/18 05/08/18 05/09/18 23:59 23:59 23:59 Intake Total 2785 / 2785 Output Total 450 / 450 Balance 2335 / 2335 Laboratory Tests Past 24 Hrs 05/08/18 05/08/18 05/08/18 20:30 20:30 20:30 WBC 7.9 RBC 4.92 Hgb 13.0 Hct 39.6 L MCV 80.5 MCH 26.4 L MCHC 32.8 RDW 15.0 H RDW Differential 43.7 Plt Count 288 MPV 11.1 Immature Gran % (Auto) 0.300 Neut % (Auto) 70.8 H Lymph % (Auto) 19.4 [place]ult[place] % (Auto) 7.6 Eos % (Auto) 1.4 Baso % (Auto) 0.5 Absolute Neuts (auto) 5.6 Absolute Lymphs (auto) 1.53 Total Counted Not Reportable Sodium 133 L Potassium 4.0 Chloride 101 Carbon Dioxide 21.0 Anion Gap 11 BUN 50 H Creatinine 4.09 H Estim Creat Clear Calc 21.16 Est GFR (MDRD) Af Amer 19 L Est GFR (MDRD) Non-Af 16 L BUN/Creatinine Ratio 12.2 Glucose 403 H Hemoglobin A1c 10.1 H Calcium 8.0 L Magnesium Total Bilirubin 0.10 L Direct Bilirubin < 0.05 AST 10 L ALT 16 Alkaline Phosphatase 127 H Troponin I < 0.015 Total Protein 5.9 L Albumin 2.0 L Globulin 3.9 Albumin/Globulin Ratio Lipase 323 05/08/18 05/09/18 05/09/18 20:30 02:36 02:36 WBC 7.8 RBC 4.26 L Hgb 11.3 L Hct 33.9 L MCV 79.6 L MCH 26.5 L MCHC 33.3 RDW 14.9 H RDW Differential 42.2 Plt Count 254 MPV 11.0 Immature Gran % (Auto) 0.600 Neut % (Auto) 60.5 Lymph % (Auto) 29.2 [place]ult[place] % (Auto) 7.3 Eos % (Auto) 1.9 Baso % (Auto) 0.5 Absolute Neuts (auto) 4.7 Absolute Lymphs (auto) 2.28 Total Counted Not Reportable Sodium 136 Potassium 3.7 Chloride 105 Carbon Dioxide 20.0 L Anion Gap 11 BUN 49 H Creatinine 4.05 H Estim Creat Clear Calc 21.99 Est GFR (MDRD) Af Amer 19 L Est GFR (MDRD) Non-Af 16 L BUN/Creatinine Ratio 12.1 Glucose 308 H Hemoglobin A1c Calcium 7.6 L Magnesium 2.0 Total Bilirubin 0.20 Direct Bilirubin AST 10 L ALT 15 L Alkaline Phosphatase 109 Troponin I Total Protein 5.3 L Albumin 1.8 L Globulin 3.5 Albumin/Globulin Ratio 0.5 L Lipase 05/09/18 05/09/18 05/09/18 02:36 05:44 07:56 WBC RBC Hgb Hct MCV MCH MCHC RDW RDW Differential Plt Count MPV Immature Gran % (Auto) Neut % (Auto) Lymph % (Auto) Fult[place] % (Auto) Eos % (Auto) Baso % (Auto) Absolute Neuts (auto) Absolute Lymphs (auto) Total Counted Sodium Potassium Chloride Carbon Dioxide Anion Gap BUN Creatinine Estim Creat Clear Calc Est GFR (MDRD) Af Amer Est GFR (MDRD) Non-Af BUN/Creatinine Ratio Glucose Hemoglobin A1c Calcium Magnesium Total Bilirubin Direct Bilirubin AST ALT Alkaline Phosphatase Troponin I < 0.015 < 0.015 < 0.015 Total Protein Albumin Globulin Albumin/Globulin Ratio Lipase POC Glucose 05/09/18 05/09/18 05/08/18 11:44 06:55 23:56 POC Glucose 222 H 284 H 349 H 05/08/18 05/08/18 23:14 22:27 POC Glucose 347 H 367 H Medical Necessity - Tobacco Use Smoking Status: Former smoker - Patient form of cigarette tobacco and chew tobacco user. Tobacco Use: Non-smoker Assessment/Plan All Active Problems Ulcer of right foot with fat layer exposed (Resolved) Hyperkalemia (Acute) Syncope (Acute) Hypertensive urgency (Acute) Hyperglycemia due to type 2 diabetes mellitus (Acute) 1. Near syncope-EKG without evidence of ischemia. Chest x-ray unremarkable. Troponin negative. Echocardiogram shows an EF of 65%, stage I diastolic dysfunction. Orthostatic vitals positive. Continue IV fluids. Repeat ortho in a.m. Suspect near syncope due to noncompliance with blood pressure and hyperglycemic regimen as well as orthostatic hypotension. 2. Type 2 diabetes mellitus, uncontrolled secondary to noncompliance with associated diabetic neuropathy-hemoglobin A1c 10.1%. Patient noncompliant with home insulin regimen. Continue home lispro and basaglar insulin as well as sliding scale insulin. Blood sugars are improving. 3. Hypertensive urgency-suspect secondary to noncompliance. Continue home Norvasc, carvedilol, doxazosin, lisinopril, torsemide. Blood pressure improved with scheduled home regimen. PRN hydralazine. 4. Chronic kidney disease stage IV-at baseline, continue to monitor. 5. Hyperlipidemia-continue statin. 6. Right Charcot foot/chronic right foot ulcer-continue home foot brace. PT/OT. Follows with Dr. Doss at wound center. 7. Anemia of chronic disease, iron deficiency anemia-stable, continue iron supplementation. 8. Obesity-encouraged diet lifestyle modifications. DVT prophylaxis- heparin sc. This patient was seen by MONALISA Rm under the supervision of Dr. Hills.
[2018-05-09 14:46] LABS: Bedside Glucose 89 mg/dL (70-110)
--- NOTE | 2018-05-09 15:14 | CM.UR ---
See completed field cashier. The patient is slightly anxious. He states he is very scared. He is worry about the dizziness and lightheadedness. Instructed that multiple things can cause these symptoms. States he thought it was just when you stood up that you could get this way. Explained that high BP, low BP, a problem with his ears, an arrhythmia, etc and cause lightheadedness. Verb understanding. States he got lightheaded when he rolled over to get his call light. Alerted Ness Hu RN and Dr. Hills of his complaints. Ana Paula Guerrero RN, [facility].
[2018-05-09 16:56] LABS: Bedside Glucose 69 mg/dL (70-110)
[2018-05-09 17:10] LABS: Bedside Glucose 74 mg/dL (70-110)
[2018-05-09] MEDS: Ammonium Lactate 225 gm Bottle 1 APPLIC TOPICAL (19:55)
[2018-05-09] MEDS: Morphine 2 MG/ML Syringe IV (19:59)
[2018-05-09] MEDS: Atorvastatin Calcium 80 MG Tablet PO (21:15)
[2018-05-09 21:51] LABS: Bedside Glucose 134 mg/dL (70-110)
[2018-05-10] VITALS (8 sets, daily range): BP systolic 109–157; BP diastolic 68–78; PULSE 55–63; RESP 14–18; TEMP 36.6–36.8; O2SAT 96–97
[2018-05-10] MEDS: Morphine 2 MG/ML Syringe IV (01:24)
[2018-05-10] MEDS: 0.9% Normal Saline 1,000 ML 150 ML IV ×2 (04:39→16:33)
[2018-05-10] MEDS: oxyCODONE 5 MG Tablet 15 MG PO ×3 (06:22→17:30)
[2018-05-10 07:10] LABS: Bedside Glucose 173 mg/dL (70-110)
[2018-05-10] MEDS: Ferrous Sulfate 325 MG Tablet PO (08:38)
[2018-05-10] MEDS: Insulin Lispro 100 UNIT/ML INSULN.PEN SC ×2 (08:39→11:04)
[2018-05-10] MEDS: Ammonium Lactate 225 gm Bottle 1 APPLIC TOPICAL (08:40)
[2018-05-10] MEDS: Aspirin E.C. 81 MG Tablet PO (08:40)
[2018-05-10] MEDS: Carvedilol 12.5 MG Tablet PO (08:40)
[2018-05-10] MEDS: Doxazosin 1 MG Tablet 2 MG PO (08:40)
[2018-05-10] MEDS: Furosemide 40 MG Tablet PO (08:41)
[2018-05-10] MEDS: Lisinopril 20 MG Tablet PO (08:41)
[2018-05-10] MEDS: amLODIPine 10 MG Tablet PO (08:41)
[2018-05-10] MEDS: Heparin Injection (Vial) 5,000 UNIT/ML VIAL 5000 UNIT SC (08:41)
--- NOTE | 2018-05-10 09:19 | NURSING ---
report given to javan SMITH
[2018-05-10] MEDS: traMADol 50 MG Tablet PO (10:50)
[2018-05-10] MEDS: Insulin Lispro 100 UNIT/ML INSULN.PEN 40 UNIT SC (11:05)
[2018-05-10 11:56] LABS: Bedside Glucose 241 mg/dL (70-110)
--- NOTE | 2018-05-10 13:55 | DCINST_ITS ---
- Discharge Diagnoses Current Active Problems: Current Active and Chronic Problems Syncope (Acute) Hypertensive urgency (Acute) Hyperglycemia due to type 2 diabetes mellitus (Acute) Obesity (BMI 30.0-34.9) (Chronic) You will use the following diet at home:: Calorie/Carbohydrate Controlled (specify 1200, 1400, etc), Cardiac Discharge Activity: Return to Normal Activity Call your doctor if you observe: Shortness of breath, Dizziness, Fainting spells, Chest pain Allergies/Adverse Reactions: Allergies amoxicillin Allergy (Verified 05/08/18 20:10) Swelling baclofen Allergy (Verified 05/08/18 20:10) Swelling pregabalin [From Lyrica] Allergy (Verified 05/08/18 20:10) Swelling Sulfa (Sulfonamide Antibiotics) Allergy (Verified 05/08/18 20:10) Swelling Medications to take at Discharge Amlodipine [Norvasc] 10 mg PO DAILY 02/19/18 Aspirin E.C. [Ecotrin] 81 mg PO DAILY 02/19/18 Atorvastatin Calcium 80 mg PO DAILY 02/19/18 Carvedilol 12.5 mg PO BID 02/19/18 Cyanocobalamin (Vitamin B-12) [B-12] 1,000 mcg PO DAILY 02/19/18 Doxazosin Mesylate 2 mg PO BID 02/19/18 Ferrous Sulfate [Iron] 325 mg PO DAILY 02/19/18 Insulin Glargine,Hum.rec.anlog [Basaglar Kwikpen U-100] 75 unit SQ BID 02/19/18 Insulin Lispro [Humalog KwikPen] 50 units SQ TIDCM 02/19/18 Lisinopril 20 mg PO DAILY 02/19/18 Oxycodone [Oxyir] 15 mg PO Q6H 02/19/18 Torsemide [Demadex] 20 mg PO DAILY 05/08/18 Ammonium Lactate [Amlactin] 57 gm TP DAILY 05/09/18 Primary Care Physician: Tony Terry,Out of [Primary Care Provider] - Please follow up with your Primary Care Physician in: 1 Week Test Results: Test results from this visit will be discussed in further detail at your follow- up appointment, if applicable. Please Follow Up With: Primary Electrical Troubleshooter When: 1 Week Proposed Discharge Date: 05/10/18
--- NOTE | 2018-05-10 13:55 | PCM.DC.SUM ---
Discharge Date and Diagnosis Date of Admission: 05/08/18 Date of Discharge: 05/10/18 - Primary Discharge Diagnosis Active and Suspected Problems 1. Near syncope due to orthostatic hypotension 2. Type 2 diabetes mellitus, uncontrolled secondary to noncompliance 3. Hypertensive urgency, due to noncompliance with antihypertensive regimen 4. Chronic kidney disease stage IV 5. Hyperlipidemia 6. Right charcot foot 7. Anemia of chronic disease, iron deficiency anemia 8. Obesity - Secondary Discharge Diagnosis Chronic Problems Charcot foot due to diabetes mellitus (Chronic) Type 2 diabetes mellitus with diabetic polyneuropathy (Chronic) Venous insufficiency (Chronic) Leg edema (Chronic) Malnutrition (Chronic) Delayed wound healing (Chronic) Vitamin D deficiency (Chronic) CKD (chronic kidney disease) stage 5, GFR less than 15 ml/min (Chronic) Anemia (Chronic) Maceration of periwound skin (Chronic) Obesity (BMI 30.0-34.9) (Chronic) Hospital Course and Treatment Imaging Results: Diagnostic Data Chest X-Ray 05/08/18 21:02 IMPRESSION: Normal x-ray examination of the chest. Electronically Signed: Morgan Gallo MD at 21:51 EST , Service support , Operations: None Procedures: 2-D Echocardiogram Summary of Care Provided: The patient is a 63 year old M admitted 05/08/2018 due to a near syncopal event, elevated blood pressure and elevated blood sugar. Patient reported he had not been taking his insulin or blood pressure regimen for approximately 2 weeks. 1. Near syncope due to orthostatic hypotension-EKG without evidence of ischemia. Chest x-ray unremarkable. Troponin negative. Echocardiogram shows an EF of 65%, stage I diastolic dysfunction. Orthostatic vitals positive. Patient received IV fluids. Repeat orthostatic vitals negative. Follow-up with primary care physician in 1 week. Patient complains of generalized weakness due to laying around at home. PT evaluated and patient did not demonstrate need for further skilled therapy. 2. Type 2 diabetes mellitus, uncontrolled secondary to noncompliance with associated diabetic neuropathy-hemoglobin A1c 10.1%. Patient noncompliant with home insulin regimen. Continue home lispro and basaglar insulin. Blood glucose stable. Follow up with primary order entry specialist in 1-2 weeks. 3. Hypertensive urgency-secondary to noncompliance. Continue home Norvasc, carvedilol, doxazosin, lisinopril, torsemide. Blood pressure stable with scheduled home regimen. 4. Chronic kidney disease stage IV-at baseline. 5. Hyperlipidemia-continue statin. 6. Right Charcot foot/healed right foot ulcer-continue home foot brace. Previously followed with wound center. Non-complaint with wearing right foot brace. 7. Anemia of chronic disease, iron deficiency anemia-stable, continue iron supplementation. 8. Obesity-encouraged diet lifestyle modifications. General: Alert, Oriented x3, Cooperative, No apparent distress HEENT: Atraumatic, PERRLA, EOMI, Normocephalic Neck: Supple, No JVD, Negative Carotid Bruits Lungs: Clear to auscultation, Normal air movement Cardiovascular: Regular rate, Regular Rhythm, Normal S1, Normal S2, No murmurs Abdomen: Bowel Sounds Present, Soft, Non Tender, Non-Distended, Obese Extremities: No clubbing, No cyanosis, No edema, Capillary Refill Less than 3 Seconds Skin: No rashes, No breakdown, - - Chronic skin changes bilateral lower extremities Musculoskeletal: No Tenderness to Palpation of Joints or Extremities Neurological: Cranial nerves II-XII grossly intact, Neuro grossly intact Psych/Mental Status: Normal Affect, Appropriate Patient seen and examined prior to discharge. Physical assessment as noted above. Patient is stable for discharge home with a follow-up recommendations as noted above. This patient was seen by MONALISA Rm under the supervision of Dr. Hills. - Physical Exam Vital Signs Temp Pulse Resp BP Pulse Ox 97.9 F 60 14 109/68 97 05/10/18 08:45 05/10/18 11:00 05/10/18 08:45 05/10/18 08:45 05/10/18 08:45 Oxygen Delivery Method Room Air Weight: 266 lb 1.567 oz Body Mass Index (BMI) 34.1 Finger Stick Blood Glucose 349 Orthostatic Vital Signs Start: 05/09/18 06:21 Freq: 0600 Status: Active Protocol: Activity Type Activity Date Activity User E-Sign Co-Sign Detail Recorded Client Recorded Date Recorded By Document 05/10/18 06:00 KB [id number] 05/10/18 06:33 KB 05/10/18 06:00 Orthostatic Vitals Sitting -Blood Pressure (90/60-120/80) 157/74 H -Extremity Use Right Arm -Pulse Rate (60-100) 63 Lying -Blood Pressure (90/60-120/80) 136/78 H -Extremity Use Right Arm -Pulse Rate (60-100) 57 L Intake and Output for Last 24 Hours 05/08/18 05/09/18 05/10/18 23:59 23:59 23:59 Intake Total 5380 / 5380 1391 / 1391 Output Total 1600 / 1600 600 / 600 Balance 3780 / 3780 791 / 791 POC Glucose 05/10/18 05/10/18 05/09/18 11:02 06:59 21:13 POC Glucose 241 H 173 H 134 H 05/09/18 05/09/18 05/09/18 17:05 16:34 14:28 POC Glucose 74 69 L 89 Discharge Diet: Low fat/ Low Cholesterol, Carb Control Diet Discharge Activity: Return to Normal Activity Call your doctor if you observe: Shortness of breath, Dizziness, Fainting spells, Chest pain Home Medications: Medications to take at Discharge Amlodipine [Norvasc] 10 mg PO DAILY 02/19/18 Aspirin E.C. [Ecotrin] 81 mg PO DAILY 02/19/18 Atorvastatin Calcium 80 mg PO DAILY 02/19/18 Carvedilol 12.5 mg PO BID 02/19/18 Cyanocobalamin (Vitamin B-12) [B-12] 1,000 mcg PO DAILY 02/19/18 Doxazosin Mesylate 2 mg PO BID 02/19/18 Ferrous Sulfate [Iron] 325 mg PO DAILY 02/19/18 Insulin Glargine,Hum.rec.anlog [Basaglar Kwikpen U-100] 75 unit SQ BID 02/19/18 Insulin Lispro [Humalog KwikPen] 50 units SQ TIDCM 02/19/18 Lisinopril 20 mg PO DAILY 02/19/18 Oxycodone [Oxyir] 15 mg PO Q6H 02/19/18 Torsemide [Demadex] 20 mg PO DAILY 05/08/18 Ammonium Lactate [Amlactin] 57 gm TP DAILY 05/09/18 Primary Care Physician: [facility] Doctor,Out of [Primary Care Provider] - Please follow up with your Primary Care Physician in: 1 Week Please Follow Up With: Primary Hosiery Mender When: 1 Week Disposition: Home Minutes spent on discharge:: 35 Patient Condition:: Stable Medical Necessity - Tobacco Use Smoking Status: Former smoker - Patient form of cigarette tobacco and chew tobacco user. Tobacco Use: Non-smoker Meaningful Use Info Meaningful Use Diagnoses (Choose all that apply): None applicable
--- NOTE | 2018-05-10 14:04 | DS.PCM_ITS ---
Discharge Date and Diagnosis Date of Admission: 05/08/18 Date of Discharge: 05/10/18 - Primary Discharge Diagnosis Active and Suspected Problems 1. Near syncope due to orthostatic hypotension 2. Type 2 diabetes mellitus, uncontrolled secondary to noncompliance 3. Hypertensive urgency, due to noncompliance with antihypertensive regimen 4. Chronic kidney disease stage IV 5. Hyperlipidemia 6. Right charcot foot 7. Anemia of chronic disease, iron deficiency anemia 8. Obesity - Secondary Discharge Diagnosis Chronic Problems Charcot foot due to diabetes mellitus (Chronic) Type 2 diabetes mellitus with diabetic polyneuropathy (Chronic) Venous insufficiency (Chronic) Leg edema (Chronic) Malnutrition (Chronic) Delayed wound healing (Chronic) Vitamin D deficiency (Chronic) CKD (chronic kidney disease) stage 5, GFR less than 15 ml/min (Chronic) Anemia (Chronic) Maceration of periwound skin (Chronic) Obesity (BMI 30.0-34.9) (Chronic) Hospital Course and Treatment Imaging Results: Diagnostic Data Chest X-Ray 05/08/18 21:02 IMPRESSION: Normal x-ray examination of the chest. Electronically Signed: Morgan Gallo MD at 21:51 EST , Service support , Operations: None Procedures: 2-D Echocardiogram Summary of Care Provided: The patient is a 63 year old M admitted 05/08/2018 due to a near syncopal event, elevated blood pressure and elevated blood sugar. Patient reported he had not been taking his insulin or blood pressure regimen for approximately 2 weeks. 1. Near syncope due to orthostatic hypotension-EKG without evidence of ischemia. Chest x-ray unremarkable. Troponin negative. Echocardiogram shows an EF of 65%, stage I diastolic dysfunction. Orthostatic vitals positive. Patient received IV fluids. Repeat orthostatic vitals negative. Follow-up with primary care physician in 1 week. Patient complains of generalized weakness due to laying around at home. PT evaluated and patient did not demonstrate need for further skilled therapy. 2. Type 2 diabetes mellitus, uncontrolled secondary to noncompliance with associated diabetic neuropathy-hemoglobin A1c 10.1%. Patient noncompliant with home insulin regimen. Continue home lispro and basaglar insulin. Blood glucose stable. Follow up with primary plant safety leader in 1-2 weeks. 3. Hypertensive urgency-secondary to noncompliance. Continue home Norvasc, carvedilol, doxazosin, lisinopril, torsemide. Blood pressure stable with schedu led home regimen. 4. Chronic kidney disease stage IV-at baseline. 5. Hyperlipidemia-continue statin. 6. Right Charcot foot/healed right foot ulcer-continue home foot brace. Previously followed with wound center. Non-complaint with wearing right foot brace. 7. Anemia of chronic disease, iron deficiency anemia-stable, continue iron supplementation. 8. Obesity-encouraged diet lifestyle modifications. General: Alert, Oriented x3, Cooperative, No apparent distress HEENT: Atraumatic, PERRLA, EOMI, Normocephalic Neck: Supple, No JVD, Negative Carotid Bruits Lungs: Clear to auscultation, Normal air movement Cardiovascular: Regular rate, Regular Rhythm, Normal S1, Normal S2, No murmurs Abdomen: Bowel Sounds Present, Soft, Non Tender, Non-Distended, Obese Extremities: No clubbing, No cyanosis, No edema, Capillary Refill Less than 3 Seconds Skin: No rashes, No breakdown, - - Chronic skin changes bilateral lower extremities Musculoskeletal: No Tenderness to Palpation of Joints or Extremities Neurological: Cranial nerves II-XII grossly intact, Neuro grossly intact Psych/Mental Status: Normal Affect, Appropriate Patient seen and examined prior to discharge. Physical assessment as noted above. Patient is stable for discharge home with a follow-up recommendations as noted above. This patient was seen by OMNALISA Rm under the supervision of Dr. Hills. - Physical Exam Vital Signs Temp Pulse Resp BP Pulse Ox 97.9 F 60 14 109/68 97 05/10/18 08:45 05/10/18 11:00 05/10/18 08:45 05/10/18 08:45 05/10/18 08:45 Oxygen Delivery Method Room Air Weight: 266 lb 1.567 oz Body Mass Index (BMI) 34.1 Finger Stick Blood Glucose 349 Orthostatic Vital Signs Start: 05/09/18 06:21 Freq: 0600 Status: Active Protocol: Activity Type Activity Date Activity User E-Sign Co-Sign Detail Recorded Client Recorded Date Recorded By Document 05/10/18 06:00 KB [id number] 05/10/18 06:33 KB 05/10/18 06:00 Orthostatic Vitals Sitting -Blood Pressure (90/60-120/80) 157/74 H -Extremity Use Right Arm -Pulse Rate (60-100) 63 Lying -Blood Pressure (90/60-120/80) 136/78 H -Extremity Use Right Arm -Pulse Rate (60-100) 57 L Intake and Output for Last 24 Hours 05/08/18 05/09/18 05/10/18 23:59 23:59 23:59 Intake Total 5380 / 5380 1391 / 1391 Output Total 1600 / 1600 600 / 600 Balance 3780 / 3780 791 / 791 POC Glucose 05/10/18 05/10/18 05/09/18 11:02 06:59 21:13 POC Glucose 241 H 173 H 134 H 05/09/18 05/09/18 05/09/18 17:05 16:34 14:28 POC Glucose 74 69 L 89 Discharge Diet: Low fat/ Low Cholesterol, Carb Control Diet Discharge Activity: Return to Normal Activity Call your doctor if you observe: Shortness of breath, Dizziness, Fainting spells, Chest pain Home Medications: Medications to take at Discharge Amlodipine [Norvasc] 10 mg PO DAILY 02/19/18 Aspirin E.C. [Ecotrin] 81 mg PO DAILY 02/19/18 Atorvastatin Calcium 80 mg PO DAILY 02/19/18 Carvedilol 12.5 mg PO BID 02/19/18 Cyanocobalamin (Vitamin B-12) [B-12] 1,000 mcg PO DAILY 02/19/18 Doxazosin Mesylate 2 mg PO BID 02/19/18 Ferrous Sulfate [Iron] 325 mg PO DAILY 02/19/18 Insulin Glargine,Hum.rec.anlog [Basaglar Kwikpen U-100] 75 unit SQ BID 02/19/18 Insulin Lispro [Humalog KwikPen] 50 units SQ TIDCM 02/19/18 Lisinopril 20 mg PO DAILY 02/19/18 Oxycodone [Oxyir] 15 mg PO Q6H 02/19/18 Torsemide [Demadex] 20 mg PO DAILY 05/08/18 Ammonium Lactate [Amlactin] 57 gm TP DAILY 05/09/18 Primary Care Physician: Tony Doctor,Out of [Primary Care Provider] - Please follow up with your Primary Care Physician in: 1 Week Please Follow Up With: Primary Assistant Professor Of English When: 1 Week Disposition: Home Minutes spent on discharge:: 35 Patient Condition:: Stable Medical Necessity - Tobacco Use Smoking Status: Former smoker - Patient form of cigarette tobacco and chew tobacco user. Tobacco Use: Non-smoker Meaningful Use Info Meaningful Use Diagnoses (Choose all that apply): None applicable
[2018-05-10 16:30] LABS: Bedside Glucose 93 mg/dL (70-110)
[2018-05-10] MEDS: Acetaminophen 325 MG Tablet 650 MG PO (16:31)
[2018-05-12 07:10] LABS: Bedside Glucose 63 mg/dL (70-110)
[2018-05-12 07:10] LABS: Bedside Glucose 69 mg/dL (70-110)
== END 2018-05-10 17:43 | disposition home or self-care (01) | DRG 422 ==
LOC: ED 20:48 → PCU 23:58
PROVIDERS: Admitting Provider Family Medicine; Emergency Provider Emergency Medicine; Visit Provider Internal Medicine
DX: E86.0 Dehydration (principal); E78.5 Hyperlipidemia, unspecified; E66.9 Obesity, unspecified; E11.65 Type 2 diabetes mellitus with hyperglycemia; I95.1 Orthostatic hypotension; N18.5 Chronic kidney disease, stage 5; D50.9 Iron deficiency anemia, unspecified; Z23 Encounter for immunization; I12.0 Hypertensive chronic kidney disease with stage 5 chronic kidney disease or end stage renal disease; E11.22 Type 2 diabetes mellitus with diabetic chronic kidney disease; E11.610 Type 2 diabetes mellitus with diabetic neuropathic arthropathy; E11.42 Type 2 diabetes mellitus with diabetic polyneuropathy; I87.2 Venous insufficiency (chronic) (peripheral); Z91.14 Patient's other noncompliance with medication regimen; E55.9 Vitamin D deficiency, unspecified; Z79.4 Long term (current) use of insulin; Z79.899 Other long term (current) drug therapy; Z87.891 Personal history of nicotine dependence
CPT/HCPCS: 36415; 71045; 80048; 80053; 80076; 82962; 83036; 83690; 83735; 84484; 85025; 93005; 93306; 97162; 97165; 97802; 99282; J7030; J7040; Q9957; 90686; A4216; C8929